=== PATIENT | male | born 1960 | race Caucasian/White ===

== ENCOUNTER → 2017-12-15 21:09 | Outpatient (CLI) | payer BC, SELFPAY ==
[2017-12-15 21:35] LABS: Absolute Lymphocyte Count 0.99 X10^3/ul (0.83-4.51); Basophil# 0.01 X10^3/uL; Basophil% 0.1 % (0-1); Eosinophil# 0.13 X10^3/uL; Eosinophils% 1.9 % (0-5); Hematocrit 35.9 % (40-54); Hemoglobin 11.1 g/dl (13.0-16.5); Lymphocyte # 0.99 X10^3/ul (4.0); Lymphocyte % 14.4 % (19-41); Mean Corp Hgb Conc 30.9 g/gl (32-36); Mean Corpuscular Hgb 29.6 pg (27.0-32.0); Mean Corpuscular Volume 95.7 fL (80-94); Mean Platelet Vol. 10.4 fl (6.2-12.0); Monocyte# 0.75 X10^3/uL; Monocyte% 10.9 % (0-10); Neutrophil % 72.6 % (47-70); Platelet Count 231 K/mm3 (150-450); RBC Distribution Width SD 45.2 fl (35.1-43.9); Red Blood Count 3.75 M/mm3 (4.6-6.2); White Blood Count 6.9 K/mm3 (4.4-11.0)
[2017-12-15 21:37] LABS: POSITIVE COUNT NO; POSITIVE DIFFERENTIAL NO; POSITIVE MORPHOLOGY NO
[2017-12-15 21:46] LABS: AST(SGOT) 15 U/L (15-37); Alanine Aminotransfer ALT/SGPT 20 U/L (16-61); Albumin, Serum 3.2 g/dL (3.2-5.0); Alkaline Phosphatase 114 U/L (45-117); Anion Gap 9 (5-15); BUN 15 mg/dL (7-18); BUN/Creat Ratio 13.4 RATIO (10-20); Calcium,Total 8.7 mg/dL (8.5-10.1); Chloride 103 mmol/L (98-107); Cholesterol 172 mg/dL (200); Creatinine, Serum 1.12 mg/dL (0.70-1.30); EST Glomerular Filtration Rate 71 mL/min (>60); Est Glom Filt Rate - Afr Amer 86 mL/min (>60); Globulin 3.3 g/dL (2.2-4.2); Glucose 169 mg/dL (74-106); High Density Lipoprotein 43 mg/dL; PSA,Total - Annual Screen 1.18 ng/mL (0.00-4.00); Potassium 3.9 mmol/L (3.5-5.1); Protein, Total 6.5 g/dL (6.4-8.2); Sodium Level 142 mmol/L (136-145); Triglycerides 112 mg/dL; Very Low Density Lipoprotein 22 mg/dL (5-40)
== END ==
PROVIDERS: Visit Provider Nurse Practitioner
DX: Z00.00 Encounter for general adult medical examination without abnormal findings (principal)
CPT/HCPCS: 80053; 80061; 84153; 85025; G0103

== ENCOUNTER → 2018-01-26 21:14 | Outpatient (CLI) | payer BC, SELFPAY ==
[2018-01-26 21:25] LABS: Absolute Neutrophil Count 5.4 X10^3/uL (2.0-7.7); Basophil# 0.01 X10^3/uL; Basophil% 0.1 % (0-1); Eosinophil# 0.16 X10^3/uL; Eosinophils% 2.1 % (0-5); Hemoglobin 12.5 g/dl (13.0-16.5); Lymphocyte % 15.7 % (19-41); Mean Corp Hgb Conc 31.3 g/gl (32-36); Mean Corpuscular Hgb 28.9 pg (27.0-32.0); Mean Corpuscular Volume 92.4 fL (80-94); Mean Platelet Vol. 9.6 fl (6.2-12.0); Monocyte# 0.83 X10^3/uL; Monocyte% 10.9 % (0-10); Neutrophil # 5.43 X10^3/uL (2.7-7.7); Neutrophil % 71.1 % (47-70); Platelet Count 280 K/mm3 (150-450); RBC Distribution Width CV 13.6 % (11.6-14.6); RBC Distribution Width SD 45.9 fl (35.1-43.9); Red Blood Count 4.33 M/mm3 (4.6-6.2); White Blood Count 7.6 K/mm3 (4.4-11.0)
[2018-01-26 21:27] LABS: POSITIVE COUNT NO; POSITIVE DIFFERENTIAL NO; POSITIVE MORPHOLOGY NO
[2018-01-26 21:34] LABS: AST(SGOT) 10 U/L (15-37); Alanine Aminotransfer ALT/SGPT 19 U/L (16-61); Albumin, Serum 3.6 g/dL (3.2-5.0); Alkaline Phosphatase 100 U/L (45-117); Anion Gap 6 (5-15); BUN 21 mg/dL (7-18); BUN/Creat Ratio 25.5 RATIO (10-20); Chloride 101 mmol/L (98-107); Creatinine, Serum 0.82 mg/dL (0.70-1.30); EST Glomerular Filtration Rate 102 mL/min (>60); Est Glom Filt Rate - Afr Amer 123 mL/min (>60); Globulin 3.7 g/dL (2.2-4.2); Glucose 93 mg/dL (74-106); Potassium 4.4 mmol/L (3.5-5.1); Protein, Total 7.3 g/dL (6.4-8.2); Sodium Level 138 mmol/L (136-145)
== END ==
PROVIDERS: Referring Provider Nurse Practitioner; Visit Provider Nurse Practitioner
DX: R73.9 Hyperglycemia, unspecified (principal); D64.9 Anemia, unspecified
CPT/HCPCS: 80053; 85025

== ENCOUNTER → 2018-05-13 21:12 | Outpatient (CLI) | payer BC, SELFPAY ==
[2018-05-13 15:31] VITALS: BMI 30.1
[2018-05-13 21:33] LABS: Absolute Lymphocyte Count 1.18 X10^3/ul (0.83-4.51); Basophil# 0.01 X10^3/uL; Basophil% 0.2 % (0-1); Eosinophil# 0.07 X10^3/uL; Eosinophils% 1.1 % (0-5); Hematocrit 42.9 % (40-54); Hemoglobin 13.7 g/dl (13.0-16.5); Lymphocyte # 1.18 X10^3/ul (4.0); Lymphocyte % 19.3 % (19-41); Mean Corp Hgb Conc 31.9 g/gl (32-36); Mean Corpuscular Hgb 29.4 pg (27.0-32.0); Mean Corpuscular Volume 92.1 fL (80-94); Mean Platelet Vol. 10.7 fl (6.2-12.0); Monocyte# 0.83 X10^3/uL; Monocyte% 13.6 % (0-10); Neutrophil # 4.02 X10^3/uL (2.7-7.7); Neutrophil % 65.6 % (47-70); Platelet Count 218 K/mm3 (150-450); RBC Distribution Width CV 14.3 % (11.6-14.6); RBC Distribution Width SD 47.2 fl (35.1-43.9); Red Blood Count 4.66 M/mm3 (4.6-6.2); White Blood Count 6.1 K/mm3 (4.4-11.0)
[2018-05-13 21:34] LABS: POSITIVE COUNT NO; POSITIVE DIFFERENTIAL NO; POSITIVE MORPHOLOGY NO
--- OUTSIDE RECORDS SUMMARY | 2018-07-18 12:54 | XMS RPT_ITS ---
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 (mEq/L) Date Value 04/12/2018 4.8 04/05/2018 4.6 03/29/2018 4.6 CO2 (mEq/L) Date Value 04/12/2018 31 04/05/2018 30 03/29/2018 30 BUN (mg/dL) Date Value 04/12/2018 16 04/05/2018 16 03/29/2018 17 Creatinine (mg/dL) Date Value 04/12/2018 0.86 04/05/2018 0.84 03/29/2018 0.81 AST (U/L) Date Value 11/15/2017 20 12/13/2015 20 ALT (U/L) Date Value 11/15/2017 22 12/13/2015 23 Bilirubin, Total (mg/dL) Date Value 11/15/2017 0.4 12/13/2015 0.8 Alkaline Phosphatase (U/L) Date Value 11/15/2017 45 12/13/2015 53 WSR (mm/hr) Date Value 02/18/2018 27 Microbiology data: reviewed Imaging data: reviewed Gilberto Bergman MD Pager: Briana Olson RN, RN 05/11/2018 1:15 PM Signed Nursing Note Debridement signature captured with risks explained per provider Review of New Patient Folder with signature captured See provider note for wound description and measurements Dressing removed In the presence and direction of the provider wound care as written below: Right Sparrow: Superior: 0.3 X 0.2 x 0.1 cm Inferior: 0.3 x 0.3 x 0.1 cm All wounds flushed with normal saline. Pat dry. Wound culture taken. Flushed with normal saline. Pat dry. Silver gel moistened Mesalt applied to wound bed. 4x4 border gauze. HBOT consulted PLAN: Return to the wound center to see ID in 1 week EDUCATION: The patient/family was instructed how to wash the wound(s) with dial soap, rinsing with water, AND patting dry. Visual demonstration on how to apply the dressing. Signs AND symptoms of infection were reviewed: Increased redness, swelling, pain, green, yellow drainage, fever or chills all would need to be evaluated by a Physician. Patient received typed homegoing wound care instructions and has expressed intent to comply. Briana Olson RN, RN 05/11/2018 1:19 PM Addendum WOUND CARE INSTRUCTIONS- Adeel I Musil Wound location: Right lower leg 1. Wash your hands with soap and water before and after wound care. 2. Gather all supplies needed. 3. Wash wound with Dial soap and water. Pat dry. 4. Apply Silvergel moistened Mesalt to the wound base. 5. Cover with 4x4 border gauze 7. Change your dressing daily To give your wound the best chance to heal: - Eat three balanced meals daily focusing on the protein - Control swelling by elevating the extremity above your heart - exercise the extremity - Control your blood sugar. Keep blood sugar less than 200 - Complete your wound care instructions - Vitamin C 500 mg twice daily - Multiple Vitamin Daily - Drink a protein shake daily Report any of the following changes to the Wound Center at [phone] or go to the Emergency Department: ? Fever or chills ? Increased drainage ? Green or yellow drainage ? Foul odor ? Increased pain ? Hardness around the wound ? Redness, warmth or swelling of the surrounding tissue ? Color change to the wound Plan: Return to the Wound Center to see ID in 3 weeks CAT Scans AND MRI need to be scheduled through Central Scheduling. Call [phone].(If applicable) Dr. Bergman/rosibel Referring Provider: SELF [200] Allergies As of Date: 05/11/2018 (No Known Allergies) Date Reviewed: 05/11/2018 Reviewed by: Delonte Cabello) KAYLEY Ervin - Fully Assessed Reason for Visit: Wound Check [133] Cmt: right sparrow Primary Visit Diagnosis:Open wound [T14.8XXA] Other Visit Diagnosis:Osteomyelitis of right leg (HCC) [M86.9] Order(s):WOUND CULTURE AND GRAM STAIN [SQWCUL] Order #: [id number]. #:[id number] SED RATE WESTERGREN [SQWSR] Order #: [id number] FUTURE C-REACTIVE PROTEIN (CRP) [SQCRP] Order #: [id number] FUTURE Prescriptions as of 05/11/2018 Sig: DOXYCYCLINE HYCLATE 20 MG TAB* Take 20 mg by mouth twice meg* IRON-150 ORAL Take by mouth. ASCORBIC ACID (VITAMIN C) 500* Take 500 mg by mouth once meg* STOOL SOFTENER ORAL Take by mouth. ACETAMINOPHEN 325 MG TABLET Take 2 tablets by mouth every* ASPIRIN 81 MG TABLET,DELAYED * Take 81 mg by mouth once edson* Problem List As Of Date 05/11/2018 Noted Resolved Femur fracture, right (HCC) [S72.91XA] INVALID FOR* More... Nicotine use disorder, F17.2 [F17.200] INVALID FOR* Scalp laceration [S01.01XA] INVALID FOR* Wound infection after surgery, subsequent encou*INVALID FOR* More... 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 Wash your hands with soap and water before and after wound care. 2. Gather all supplies needed. 3. Wash wound with Dial soap and water. Pat dry. 4. Apply Silvergel moistened Mesalt to the wound base. 5. Cover with 4x4 border gauze 7. Change your dressing daily To give your wound the best chance to heal: - Eat three balanced meals daily focusing on the protein - Control swelling by elevating the extremity above your heart - exercise the extremity - Control your blood sugar. Keep blood sugar less than 200 - Complete your wound care instructions - Vitamin C 500 mg twice daily - Multiple Vitamin Daily - Drink a protein shake daily Report any of the following changes to the Wound Center at [phone] or go to the Emergency Department: ? Fever or chills ? Increased drainage ? Green or yellow drainage ? Foul odor ? Increased pain ? Hardness around the wound ? Redness, warmth or swelling of the surrounding tissue ? Color change to the wound Plan: Return to the Wound Center to see ID in 3 weeks CAT Scans AND MRI need to be scheduled through Central Scheduling. Call [phone].(If applicable) Dr. Bergman/pw Visit Notes: >> Briana (Rn) TATIANA Olson tigist May 11, 2018 1:03 PM Status: Signed Nursing Note Debridement signature captured with risks explained per provider Review of New Patient Folder with signature captured See provider note for wound description and measurements Dressing removed In the presence and direction of the provider wound care as written below: Right Sparrow: Superior: 0.3 X 0.2 x 0.1 cm Inferior: 0.3 x 0.3 x 0.1 cm All wounds flushed with normal saline. Pat dry. Wound culture taken. Flushed with normal saline. Pat dry. Silver gel moistened Mesalt applied to wound bed. 4x4 border gauze. HBOT consulted PLAN: Return to the wound center to see ID in 1 week EDUCATION: The patient/family was instructed how to wash the wound(s) with dial soap, rinsing with water, AND patting dry. Visual demonstration on how to apply the dressing. Signs AND symptoms of infection were reviewed: Increased redness, swelling, pain, green, yellow drainage, fever or chills all would need to be evaluated by a Physician. Patient received typed homegoing wound care instructions and has expressed intent to comply. Medications Discontinued During This Encounter ampicillin sodium/sulbactam Na (UNAS* 05/11/2018 Class: Historical Med Route: INTRAVENOUS (ONLY) Sig: Inject intravenously. Disc: Course of therapy completed Encounter Status:Closed by GILBERTO BERGMAN MD on 05/11/18 Observed: 05/05/2018 Status: F Source: [facility] 12:40 PM HEALTH SYSTEM REPOSITORY Test performed at [facility] Moderate Mixed skin alem. No further identification to follow. Plates will be held for 5 days. No organisms seen Few Polymorphonuclear leukocytes Rare Squamous epithelial cells Performed By: #### C_AER #### [facility] [address] [place] [address] PROGRESS Observed: 05/04/2018 Status: COMPLETED Source: [facility] 2:18 PM CLINIC OTHER CAMPUS REPOSITORY HNO ID: [id number] Author: Wiliam Brandon Service: (none) Author Type: Physician Type: Progress Notes Filed: 05/04/2018 2:20 PM Note Text: Chief complaint: Right leg pain. His present illness: The patient returns today follow-up regarding his tibia abscess from traction pin site. He stopped his antibiotics per the infectious disease service on April 18, 2018. Overall doing well. Drainage continues to decrease. No fevers or chills. For the patient's past medical history, past surgical history, medications, allergies, family history, social history, and review of systems please refer to medical history in chart. Physical exam: Patient is alert and oriented no acute distress. Answers all questions appropriately. As a normal affect. Ambulates that assistance. Examination of the right lower extremity shows wound on medial aspect to continue to granulate in. No surrounding cellulitis. No purulence. Assessment: 1 right tibia abscess area Plan: At this time he is anxious to return to work. He dates to return to work in approximately 2 weeks. I did provide him with a return to work slip. He will continue local wound care with Mesalt dressing changes. I'll see him back in 4 weeks. If there are any problems prior to her next appointment, he will contact the office. All questions were answered CNOV Observed: 05/04/2018 Status: COMPLETED Source: [facility] 2:15 PM CLINIC OTHER CAMPUS REPOSITORY Office Visit (AGPOB1) JUNIADEEL PUTNAM I ([id number]) 1960 M [facility] Date Time Provider Department 05/04/18 2:15 PM WILIAM BRANDON AGPOB1 During your visit today, we recorded the following information about you: Respiration Weight Height 14/minute 80.3 kg 1.753 m Moni Stewart Encap 05/04/2018 2:20 PM Signed REVIEW OF SYSTEMS: GENERAL: Well developed, well nourished. No acute distress PAIN: Negative for pain, history of chronic pain or current treatment for chronic pain conditions CARDIOVASCULAR: Negative for chest pain, leg swelling and palpations. MSK: Negative for joint pain, swelling, back pain, muscle pain. SKIN: Negative for lesions, rash, itching, metal sensitivity NEURO: Negative for seizure, trauma, numbness/tingling of extremities. ENDOCRINE: Negative for Diabetes Type 1 and Type 2 HEMATOLOGY: Negative for excessive bleeding, clots, bleeding disorders. Wiliam Brandon MD 05/04/2018 2:20 PM Signed Chief complaint: Right leg pain. His present illness: The patient returns today follow-up regarding his tibia abscess from traction pin site. He stopped his antibiotics per the infectious disease service on April 18, 2018. Overall doing well. Drainage continues to decrease. No fevers or chills. For the patient's past medical history, past surgical history, medications, allergies, family history, social history, and review of systems please refer to medical history in chart. Physical exam: Patient is alert and oriented no acute distress. Answers all questions appropriately. As a normal affect. Ambulates that assistance. Examination of the right lower extremity shows wound on medial aspect to continue to granulate in. No surrounding cellulitis. No purulence. Assessment: 1 right tibia abscess area Plan: At this time he is anxious to return to work. He dates to return to work in approximately 2 weeks. I did provide him with a return to work slip. He will continue local wound care with Mesalt dressing changes. I'll see him back in 4 weeks. If there are any problems prior to her next appointment, he will contact the office. All questions were answered Referring Provider: SELF [200] Allergies As of Date: 05/04/2018 (No Known Allergies) Date Reviewed: 05/04/2018 Reviewed by: Wiliam Brandon - Fully Assessed Reason for Visit: Follow Up [171] Cmt: Right leg Primary Visit Diagnosis:Serg's abscess of right tibia (HCC) [M86.8X6] Prescriptions as of 05/04/2018 Sig: UNASYN INTRAVEN. Inject intravenously. DOXYCYCLINE HYCLATE 20 MG TAB* Take 20 mg by mouth twice meg* IRON-150 ORAL Take by mouth. ASCORBIC ACID (VITAMIN C) 500* Take 500 mg by mouth once meg* STOOL SOFTENER ORAL Take by mouth. ACETAMINOPHEN 325 MG TABLET Take 2 tablets by mouth every* ASPIRIN 81 MG TABLET,DELAYED * Take 81 mg by mouth once edson* Problem List As Of Date 05/04/2018 Noted Resolved Femur fracture, right (HCC) [S72.91XA] INVALID FOR* More... Nicotine use disorder, F17.2 [F17.200] INVALID FOR* Scalp laceration [S01.01XA] INVALID FOR* Wound infection after surgery, subsequent encou*INVALID FOR* More... 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 Follow-up and Disposition History Recorded Letter Text Wiliam Brandon MD Orthopedics [facility]ly [facility] [address], [facility] [address] [address], [facility] [address] [address] [facility], [address], [facility] [address] [address], [facility] [address] [address], [place] [address] [phone] ([phone] [email or web address] . May 04, 2018 Adeel Muller is under my care for treatment of Right femur fracture and infection of right tibia. He has been unable to attend work. He was last examined by me on May 04, 2018 and does have my permission to return to work on May 20, 2018. Restrictions: None Sincerely, Wiliam Brandon M.D. Encounter Status:Closed by WILIAM BRANDON MD on 05/04/18 PROGRESS Observed: 05/04/2018 Status: COMPLETED Source: [facility] 2:12 PM CLINIC OTHER CAMPUS REPOSITORY HNO ID: [id number] Author: Moni (Tech) Zbigniew Stewart Service: (none) Author Type: Billing Department Supervisor Type: Progress Notes Filed: 05/04/2018 2:20 PM Note Text: REVIEW OF SYSTEMS: GENERAL: Well developed, well nourished. No acute distress PAIN: Negative for pain, history of chronic pain or current treatment for chronic pain conditions CARDIOVASCULAR: Negative for chest pain, leg swelling and palpations. MSK: Negative for joint pain, swelling, back pain, muscle pain. SKIN: Negative for lesions, rash, itching, metal sensitivity NEURO: Negative for seizure, trauma, numbness/tingling of extremities. ENDOCRINE: Negative for Diabetes Type 1 and Type 2 HEMATOLOGY: Negative for excessive bleeding, clots, bleeding disorders. MDRD EGFR Collected: 04/12/2018 Status: F Source: [facility] 3:07 PM HEALTH SYSTEM REPOSITORY TYPE CODE TESTS RESULT OUT OF RANGE REFERENCE UNITS LAB LGFRF(LOINC >60mL/min/1.73m ) 2 eGFR >60 Result Comment: If the patient is , multiply the result by 1.210. Performed By: #### LGFR #### [place] [address] HEMOGRAM/MANUAL DIFF Collected: 04/12/2018 Status: F Source: [place] 1:00 PM [facility] SYSTEM REPOSITORY TYPE CODE TESTS RESULT OUT OF REFERENCE UNITS RANGE LAB LWBC(LOINC 4.8-10.8 thou/cmm ) Low WBC 4.5 LAB LRBC(LOINC 4.60-6.20 mil/cmm ) Low RBC 4.41 LAB LHGB(LOINC 14.0-18.0 g/dL ) Low Hgb 13.0 LAB LHCT(LOINC 42.0-52.0 % ) Low Hct 41.0 LAB LMCV(LOINC 80.0-94.0 fl ) MCV 93.0 LAB LMCH(LOINC 27.0-31.0 pg ) MCH 29.5 LAB LMCHC(LOIN 32.0-36.0 % C) Low MCHC 31.7 LAB LRDW(LOINC 11.5-15.9 % ) RDW 15.5 LAB LPLT(LOINC 150-400 thou/cmm ) Platelet 202 LAB LMPV(LOINC 7.1-10.5 fl ) MPV High 10.6 LAB LDTYP(LOIN C) Diff Type Manual Diff LAB LSEGT(LOIN % C) Seg Neutrophil 72.0 LAB LLYMP(LOIN % C) Lymphocyte 14.0 LAB LMNO(LOINC % ) Monocyte 14.0 LAB MELINDA(LOINC % ) Eosinophil 0.0 LAB LBASO(LOIN % C) Basophil 0.0 LAB LSEGN(LOIN 3.00-5.67 thou/cmm C) Abs. Neut (ANC) 3.24 LAB LLYMN(LOIN 1.50-3.65 thou/cmm C) Low Abs. Lymph 0.63 LAB LMONN(LOIN 0.20-1.00 thou/cmm C) Abs. [place] 0.63 LAB LEOSN(LOIN 0.00-0.41 thou/cmm C) Abs. Eosin 0.00 LAB LBASN(LOIN 0.00-0.08 thou/cmm C) Abs. Baso 0.00 LAB LPLES(LOIN C) Platelet Estimate Normal LAB LRBCM(LOIN C) RBC Morphology Normal Performed By: #### LMCBD #### [place] [id number] BASIC PANEL Collected: 04/12/2018 Status: F Source: [facility] 1:00 HEALTH SYSTEM REPOSITORY TYPE CODE TESTS RESULT OUT OF REFERENCE UNITS RANGE LAB RECEPTIONIST CLERK(LOINC) 136-145 mEq/L Sodium Blood 138 LAB LK(LOINC) 3.5-5.1 mEq/L Potassium Blood 4.8 LAB LCL(LOINC) 98-107 mEq/L Chloride Blood 102 LAB LCO2(LOINC 21-32 mEq/L ) CO2 Blood 31 LAB LGLU(LOINC 70-99 mg/dL ) Glucose Blood 73 LAB LBUN(LOINC 7-25 mg/dL ) BUN Blood 16 LAB LCREA(LOIN 0.67-1.17 mg/dL C) Creatinine Blood 0.86 LAB LCA(LOINC) 8.5-10.1 mg/dL Calcium Blood 9.1 LAB LANGP(LOIN 8-20 C) Anion Gap 10 LAB LBNCR(LOIN 10-20 C) BUN/Creatinine 19 Ratio Performed By: #### LP8 #### [facility] [address] [place] [address] MDRD EGFR Collected: 04/05/2018 Status: F Source: [facility] 2:36 PM HEALTH SYSTEM REPOSITORY TYPE CODE TESTS RESULT OUT OF RANGE REFERENCE UNITS LAB LGFRF(LOINC >60mL/min/1.73m ) 2 eGFR >60 Result Comment: If the patient is , multiply the result by 1.210. Performed By: #### LGFR #### [facility] [address] [place] [address] HEMOGRAM/DIFF Collected: 04/05/2018 Status: P Source: [facility] 12:39 PM HEALTH SYSTEM REPOSITORY TYPE CODE TESTS RESULT OUT OF REFERENCE UNITS RANGE LAB LWBC(LOINC) 4.8-10.8 thou/cmm Low WBC 3.9 LAB LRBC(LOINC) 4.60-6.20 mil/cmm Low RBC 4.43 LAB LHGB(LOINC) 14.0-18.0 g/dL Low Hgb 12.8 LAB LHCT(LOINC) 42.0-52.0 % Low Hct 41.0 LAB LMCV(LOINC) 80.0-94.0 fl MCV 92.6 LAB LMCH(LOINC) 27.0-31.0 pg MCH 28.9 LAB LMCHC(LOINC 32.0-36.0 % ) Low MCHC 31.2 LAB LRDW(LOINC) 11.5-15.9 % RDW 15.6 LAB LPLT(LOINC) 150-400 thou/cmm Platelet 219 LAB LMPV(LOINC) 7.1-10.5 fl MPV 10.2 Performed By: #### LCBCD #### [facility] [address] [place], [place] [address] HEMOGRAM/MANUAL DIFF Collected: 04/05/2018 Status: F Source: [place] 12:39 PM [facility] REPOSITORY TYPE CODE TESTS RESULT OUT OF REFERENCE UNITS RANGE LAB LWBC(LOINC 4.8-10.8 thou/cmm ) Low WBC 3.9 LAB LRBC(LOINC 4.60-6.20 mil/cmm ) Low RBC 4.43 LAB LHGB(LOINC 14.0-18.0 g/dL ) Low Hgb 12.8 LAB LHCT(LOINC 42.0-52.0 % ) Low Hct 41.0 LAB LMCV(LOINC 80.0-94.0 fl ) MCV 92.6 LAB LMCH(LOINC 27.0-31.0 pg ) MCH 28.9 LAB LMCHC(LOIN 32.0-36.0 % C) Low MCHC 31.2 LAB LRDW(LOINC 11.5-15.9 % ) RDW 15.6 LAB LPLT(LOINC 150-400 thou/cmm ) Platelet 219 LAB LMPV(LOINC 7.1-10.5 fl ) MPV 10.2 LAB LDTYP(LOIN C) Diff Type Manual Diff LAB LSEGT(LOIN % C) Seg Neutrophil 59.0 LAB LLYMP(LOIN % C) Lymphocyte 24.0 LAB LMNO(LOINC % ) Monocyte 12.0 LAB MELINDA(LOINC % ) Eosinophil 5.0 LAB LBASO(LOIN % C) Basophil 0.0 LAB LSEGN(LOIN 3.00-5.67 thou/cmm C) Low Abs. Neut (ANC) 2.29 LAB LLYMN(LOIN 1.50-3.65 thou/cmm C) Low Abs. Lymph 0.94 LAB LMONN(LOIN 0.20-1.00 thou/cmm C) Abs. [place] 0.47 LAB LEOSN(LOIN 0.00-0.41 thou/cmm C) Abs. Eosin 0.20 LAB LBASN(LOIN 0.00-0.08 thou/cmm C) Abs. Baso 0.00 LAB LPLES(LOIN C) Platelet Estimate Normal LAB LRBCM(LOIN C) RBC Morphology Normal Performed By: #### LMCBD #### [place] [address] BASIC PANEL Collected: 04/05/2018 Status: F Source: [facility] 12:39 PM HEALTH SYSTEM REPOSITORY TYPE CODE TESTS RESULT OUT OF REFERENCE UNITS RANGE LAB RECEPTIONIST CLERK(LOINC) 136-145 mEq/L Sodium Blood 140 LAB LK(LOINC) 3.5-5.1 mEq/L Potassium Blood 4.6 LAB LCL(LOINC) 98-107 mEq/L Chloride Blood 103 LAB LCO2(LOINC 21-32 mEq/L ) CO2 Blood 30 LAB LGLU(LOINC 70-99 mg/dL ) Glucose Blood 84 LAB LBUN(LOINC 7-25 mg/dL ) BUN Blood 16 LAB LCREA(LOIN 0.67-1.17 mg/dL C) Creatinine Blood 0.84 LAB LCA(LOINC) 8.5-10.1 mg/dL Calcium Blood 8.9 LAB LANGP(LOIN 8-20 C) Anion Gap 12 LAB LBNCR(LOIN 10-20 C) BUN/Creatinine 19 Ratio Performed By: #### LP8 #### [facility] [address] [place] [address] PROGRESS Observed: 03/30/2018 Status: COMPLETED Source: [place] [facility] 1:58 PM CLINIC OTHER CAMPUS REPOSITORY HNO ID: [id number] Author: Wiliam Brandon Service: (none) Author Type: Physician Type: Progress Notes Filed: 03/30/2018 1:59 PM Note Text: Subjective: The patient returns today regarding his right tibial osteomyelitis. His surgical debridement in December 2017. He is on IV antibiotics. He's taking these every 6 hours. Decreased drainage. No fevers or chills. He states he is walking and feeling better. Objective: Examination right lower extremity shows it to be neurovascularly intact. Decreased swelling. Mild serous drainage. Improved from last visit. Assessment: #1 right tibia osteomyelitis. Plan: At this time he scheduled to continue IV and objects through April 18. I will see him back in 4 weeks. He'll continue with local dressing changes. We did discuss the potential need for future intervention if his infection recurs after antibiotics are stopped. There are any problems prior to her next appointment, he will contact the office. All questions were answered. CNOV Observed: 03/30/2018 Status: COMPLETED Source: [facility] 1:45 PM CLINIC OTHER CAMPUS REPOSITORY Office Visit (AGPOB1) RENZOADEEL Jeffery ([id number]) 1960 M [facility] Date Time Provider Department 03/30/18 1:45 PM WILIAM BRANDON AGPOB1 During your visit today, we recorded the following information about you: Wiliam Brandon MD 03/30/2018 1:59 PM Signed Subjective: The patient returns today regarding his right tibial osteomyelitis. His surgical debridement in December 2017. He is on IV antibiotics. He's taking these every 6 hours. Decreased drainage. No fevers or chills. He states he is walking and feeling better. Objective: Examination right lower extremity shows it to be neurovascularly intact. Decreased swelling. Mild serous drainage. Improved from last visit. Assessment: #1 right tibia osteomyelitis. Plan: At this time he scheduled to continue IV and objects through April 18. I will see him back in 4 weeks. He'll continue with local dressing changes. We did discuss the potential need for future intervention if his infection recurs after antibiotics are stopped. There are any problems prior to her next appointment, he will contact the office. All questions were answered. Referring Provider: SELF [200] Allergies As of Date: 03/30/2018 (No Known Allergies) Date Reviewed: 03/30/2018 Reviewed by: Wiliam Brandon - Fully Assessed Reason for Visit: Follow Up [171] Cmt: right tibia abscess from 12/2017 Primary Visit Diagnosis:Serg's abscess of right tibia (HCC) [M86.8X6] Prescriptions as of 03/30/2018 Sig: UNASYN INTRAVEN. Inject intravenously. DOXYCYCLINE HYCLATE 20 MG TAB* Take 20 mg by mouth twice meg* IRON-150 ORAL Take by mouth. ASCORBIC ACID (VITAMIN C) 500* Take 500 mg by mouth once meg* STOOL SOFTENER ORAL Take by mouth. ACETAMINOPHEN 325 MG TABLET Take 2 tablets by mouth every* ASPIRIN 81 MG TABLET,DELAYED * Take 81 mg by mouth once edson* Problem List As Of Date 03/30/2018 Noted Resolved Femur fracture, right (HCC) [S72.91XA] INVALID FOR* More... Nicotine use disorder, F17.2 [F17.200] INVALID FOR* Scalp laceration [S01.01XA] INVALID FOR* Wound infection after surgery, subsequent encou*INVALID FOR* More... Serg's abscess of right tibia (HCC) [M86.8X6] INVALID FOR* Disposition: Return in about 4 weeks (around 04/27/2018). Follow-up and Disposition History Recorded Encounter Status:Closed by WILIAM BRANDON MD on 03/30/18 MDRD EGFR Collected: 03/29/2018 Status: F Source: [facility] 2:24 PM HEALTH SYSTEM REPOSITORY TYPE CODE TESTS RESULT OUT OF RANGE REFERENCE UNITS LAB LGFRF(LOINC >60mL/min/1.73m ) 2 eGFR >60 Result Comment: If the patient is , multiply the result by 1.210. Performed By: #### LGFR #### [place] [address] BASIC PANEL Collected: 03/29/2018 Status: F Source: [facility] 1:03 PM HEALTH SYSTEM REPOSITORY TYPE CODE TESTS RESULT OUT OF REFERENCE UNITS RANGE LAB RECEPTIONIST CLERK(LOINC) 136-145 mEq/L Sodium Blood 137 LAB LK(LOINC) 3.5-5.1 mEq/L Potassium Blood 4.6 LAB LCL(LOINC) 98-107 mEq/L Chloride Blood 102 LAB LCO2(LOINC 21-32 mEq/L ) CO2 Blood 30 LAB LGLU(LOINC 70-99 mg/dL ) Glucose Blood 73 LAB LBUN(LOINC 7-25 mg/dL ) BUN Blood 17 LAB LCREA(LOIN 0.67-1.17 mg/dL C) Creatinine Blood 0.81 LAB LCA(LOINC) 8.5-10.1 mg/dL Calcium Blood 8.6 LAB LANGP(LOIN 8-20 C) Anion Gap 9 LAB LBNCR(LOIN 10-20 C) High BUN/Creatinine 21 Ratio Performed By: #### LP8 #### [facility] [address] [place] [id number] HEMOGRAM/MANUAL DIFF Collected: 03/29/2018 Status: F Source: [place] 1:03 PM [facility] REPOSITORY TYPE CODE TESTS RESULT OUT OF REFERENCE UNITS RANGE LAB LWBC(LOINC 4.8-10.8 thou/cmm ) WBC Low 4.7 LAB LRBC(LOINC 4.60-6.20 mil/cmm ) RBC Low 4.25 LAB LHGB(LOINC 14.0-18.0 g/dL ) Hgb Low 12.3 LAB LHCT(LOINC 42.0-52.0 % ) Hct Low 39.1 LAB LMCV(LOINC 80.0-94.0 fl ) MCV 92.0 LAB LMCH(LOINC 27.0-31.0 pg ) MCH 28.9 LAB LMCHC(LOIN 32.0-36.0 % C) MCHC Low 31.5 LAB LRDW(LOINC 11.5-15.9 % ) RDW 15.3 LAB LPLT(LOINC 150-400 thou/cmm ) Platelet 187 LAB LMPV(LOINC 7.1-10.5 fl ) MPV 10.4 LAB LDTYP(LOIN C) Diff Type Manual Diff LAB LSEGT(LOIN % C) Seg Neutrophil 64.0 LAB LLYMP(LOIN % C) Lymphocyte 16.0 LAB LMNO(LOINC % ) Monocyte 18.0 LAB MELINDA(LOINC % ) Eosinophil 2.0 LAB LBASO(LOIN % C) Basophil 0.0 LAB LSEGN(LOIN 3.00-5.67 thou/cmm C) Abs. Neut (ANC) 3.01 LAB LLYMN(LOIN 1.50-3.65 thou/cmm C) Abs. Lymph Low 0.75 LAB LMONN(LOIN 0.20-1.00 thou/cmm C) Abs. [place] 0.85 LAB LEOSN(LOIN 0.00-0.41 thou/cmm C) Abs. Eosin 0.09 LAB LBASN(LOIN 0.00-0.08 thou/cmm C) Abs. Baso 0.00 LAB LPLES(LOIN C) Platelet Estimate Normal LAB LANIS(LOIN C) Anisocytosis Few LAB LPOIK(LOIN C) Poikilocytosis Few Performed By: #### LMCBD #### [facility] [address] [place], [place] [address] MDRD EGFR Collected: 03/22/2018 Status: F Source: [facility] 4:14 PM [facility] REPOSITORY TYPE CODE TESTS RESULT OUT OF RANGE REFERENCE UNITS LAB LGFRF(LOINC >60mL/min/1.73m ) 2 eGFR >60 Result Comment: If the patient is , multiply the result by 1.210. Performed By: #### LGFR #### [facility] [address] [place] [id number] HEMOGRAM/MANUAL DIFF Collected: 03/22/2018 Status: F Source: [place] 2:34 PM [facility] REPOSITORY TYPE CODE TESTS RESULT OUT OF REFERENCE UNITS RANGE LAB LWBC(LOINC 4.8-10.8 thou/cmm ) WBC Low 3.5 LAB LRBC(LOINC 4.60-6.20 mil/cmm ) RBC Low 4.53 LAB LHGB(LOINC 14.0-18.0 g/dL ) Hgb Low 12.9 LAB LHCT(LOINC 42.0-52.0 % ) Hct Low 41.0 LAB LMCV(LOINC 80.0-94.0 fl ) MCV 90.5 LAB LMCH(LOINC 27.0-31.0 pg ) MCH 28.5 LAB LMCHC(LOIN 32.0-36.0 % C) MCHC Low 31.5 LAB LRDW(LOINC 11.5-15.9 % ) RDW 15.2 LAB LPLT(LOINC 150-400 thou/cmm ) Platelet 168 LAB LMPV(LOINC 7.1-10.5 fl ) MPV 10.5 LAB LDTYP(LOIN C) Diff Type Manual Diff LAB LSEGT(LOIN % C) Seg Neutrophil 63.0 LAB LLYMP(LOIN % C) Lymphocyte 21.0 LAB LMNO(LOINC % ) Monocyte 14.0 LAB MELINDA(LOINC % ) Eosinophil 2.0 LAB LBASO(LOIN % C) Basophil 0.0 LAB LSEGN(LOIN 3.00-5.67 thou/cmm C) Abs. Neut (ANC) Low 2.20 LAB LLYMN(LOIN 1.50-3.65 thou/cmm C) Abs. Lymph Low 0.74 LAB LMONN(LOIN 0.20-1.00 thou/cmm C) Abs. [place] 0.49 LAB LEOSN(LOIN 0.00-0.41 thou/cmm C) Abs. Eosin 0.07 LAB LBASN(LOIN 0.00-0.08 thou/cmm C) Abs. Baso 0.00 LAB LPLES(LOIN C) Platelet Estimate Normal LAB LANIS(LOIN C) Anisocytosis Slight LAB LPOLY(LOIN C) Polychromasia Few LAB LPOIK(LOIN C) Poikilocytosis Few LAB LELIP(LOIN C) Elliptocytosis Few Performed By: #### LMCBD #### [place] [address] BASIC PANEL Collected: 03/22/2018 Status: F Source: [facility] 2:34 PM [facility] REPOSITORY TYPE CODE TESTS RESULT OUT OF REFERENCE UNITS RANGE LAB RECEPTIONIST CLERK(LOINC) 136-145 mEq/L Sodium Blood 136 LAB LK(LOINC) 3.5-5.1 mEq/L Potassium Blood 4.6 LAB LCL(LOINC) 98-107 mEq/L Chloride Blood 102 LAB LCO2(LOINC 21-32 mEq/L ) CO2 Blood 29 LAB LGLU(LOINC 70-99 mg/dL ) Glucose Blood 90 LAB LBUN(LOINC 7-25 mg/dL ) BUN Blood 12 LAB LCREA(LOIN 0.67-1.17 mg/dL C) Creatinine Blood 0.90 LAB LCA(LOINC) 8.5-10.1 mg/dL Calcium Blood 9.1 LAB LANGP(LOIN 8-20 C) Anion Gap 9 LAB LBNCR(LOIN 10-20 C) BUN/Creatinine 13 Ratio Performed By: #### LP8 #### [place] [address] MDRD EGFR Collected: 03/16/2018 Status: F Source: [facility] 2:49 PM [facility] SYSTEM REPOSITORY TYPE CODE TESTS RESULT OUT OF RANGE REFERENCE UNITS LAB LGFRF(LOINC >60mL/min/1.73m ) 2 eGFR >60 Result Comment: If the patient is , multiply the result by 1.210. Performed By: #### LGFR #### [facility] [address] [place], [place] [address] HEMOGRAM/DIFF Collected: 03/16/2018 Status: P Source: [facility] 12:20 PM [facility] SYSTEM REPOSITORY TYPE CODE TESTS RESULT OUT OF REFERENCE UNITS RANGE LAB LWBC(LOINC) 4.8-10.8 thou/cmm Low WBC 4.2 LAB LRBC(LOINC) 4.60-6.20 mil/cmm Low RBC 4.42 LAB LHGB(LOINC) 14.0-18.0 g/dL Low Hgb 12.6 LAB LHCT(LOINC) 42.0-52.0 % Low Hct 40.5 LAB LMCV(LOINC) 80.0-94.0 fl MCV 91.6 LAB LMCH(LOINC) 27.0-31.0 pg MCH 28.5 LAB LMCHC(LOINC 32.0-36.0 % ) Low MCHC 31.1 LAB LRDW(LOINC) 11.5-15.9 % RDW 15.2 LAB LPLT(LOINC) 150-400 thou/cmm Platelet 177 LAB LMPV(LOINC) 7.1-10.5 fl High MPV 10.8 Performed By: #### LCBCD #### [facility] [address] [place] [id number] HEMOGRAM/MANUAL DIFF Collected: 03/16/2018 Status: F Source: [place] 12:20 [facility] REPOSITORY TYPE CODE TESTS RESULT OUT OF REFERENCE UNITS RANGE LAB LWBC(LOINC 4.8-10.8 thou/cmm ) WBC Low 4.2 LAB LRBC(LOINC 4.60-6.20 mil/cmm ) RBC Low 4.42 LAB LHGB(LOINC 14.0-18.0 g/dL ) Hgb Low 12.6 LAB LHCT(LOINC 42.0-52.0 % ) Hct Low 40.5 LAB LMCV(LOINC 80.0-94.0 fl ) MCV 91.6 LAB LMCH(LOINC 27.0-31.0 pg ) MCH 28.5 LAB LMCHC(LOIN 32.0-36.0 % C) MCHC Low 31.1 LAB LRDW(LOINC 11.5-15.9 % ) RDW 15.2 LAB LPLT(LOINC 150-400 thou/cmm ) Platelet 177 LAB LMPV(LOINC 7.1-10.5 fl ) MPV High 10.8 LAB LDTYP(LOIN C) Diff Type Manual Diff LAB LSEGT(LOIN % C) Seg Neutrophil 69.0 LAB LLYMP(LOIN % C) Lymphocyte 15.0 LAB LMNO(LOINC % ) Monocyte 15.0 LAB MELINDA(LOINC % ) Eosinophil 1.0 LAB LBASO(LOIN % C) Basophil 0.0 LAB LSEGN(LOIN 3.00-5.67 thou/cmm C) Abs. Neut (ANC) Low 2.90 LAB LLYMN(LOIN 1.50-3.65 thou/cmm C) Abs. Lymph Low 0.63 LAB LMONN(LOIN 0.20-1.00 thou/cmm C) Abs. [place] 0.63 LAB LEOSN(LOIN 0.00-0.41 thou/cmm C) Abs. Eosin 0.04 LAB LBASN(LOIN 0.00-0.08 thou/cmm C) Abs. Baso 0.00 LAB LPLES(LOIN C) Platelet Estimate Normal LAB LANIS(LOIN C) Anisocytosis Few LAB LELIP(LOIN C) Elliptocytosis Few Performed By: #### LMCBD #### [place] [address] BASIC PANEL Collected: 03/16/2018 Status: F Source: [facility] 12:20 PM [facility] SYSTEM REPOSITORY TYPE CODE TESTS RESULT OUT OF REFERENCE UNITS RANGE LAB RECEPTIONIST CLERK(LOINC) 136-145 mEq/L Sodium Blood 137 LAB LK(LOINC) 3.5-5.1 mEq/L Potassium Blood 4.7 LAB LCL(LOINC) 98-107 mEq/L Chloride Blood 104 LAB LCO2(LOINC 21-32 mEq/L ) CO2 Blood 29 LAB LGLU(LOINC 70-99 mg/dL ) Glucose Blood 92 LAB LBUN(LOINC 7-25 mg/dL ) BUN Blood 16 LAB LCREA(LOIN 0.67-1.17 mg/dL C) Creatinine Blood 0.92 LAB LCA(LOINC) 8.5-10.1 mg/dL Calcium Blood 8.9 LAB LANGP(LOIN 8-20 C) Anion Gap 9 LAB LBNCR(LOIN 10-20 C) BUN/Creatinine 17 Ratio Performed By: #### LP8 #### [facility] [address] [place], [place] [address] MDRD EGFR Collected: 03/08/2018 Status: F Source: [facility] 5:45 PM [facility] REPOSITORY TYPE CODE TESTS RESULT OUT OF RANGE REFERENCE UNITS LAB LGFRF(LOINC >60mL/min/1.73m ) 2 eGFR >60 Result Comment: If the patient is , multiply the result by 1.210. Performed By: #### LGFR #### [facility] [address] [place], [place] [address] HEMOGRAM/MANUAL DIFF Collected: 03/08/2018 Status: F Source: [place] 2:58 PM [facility] REPOSITORY TYPE CODE TESTS RESULT OUT OF REFERENCE UNITS RANGE LAB LWBC(LOINC 4.8-10.8 thou/cmm ) WBC 5.1 LAB LRBC(LOINC 4.60-6.20 mil/cmm ) RBC Low 4.31 LAB LHGB(LOINC 14.0-18.0 g/dL ) Hgb Low 12.2 LAB LHCT(LOINC 42.0-52.0 % ) Hct Low 39.6 LAB LMCV(LOINC 80.0-94.0 fl ) MCV 91.9 LAB LMCH(LOINC 27.0-31.0 pg ) MCH 28.3 LAB LMCHC(LOIN 32.0-36.0 % C) MCHC Low 30.8 LAB LRDW(LOINC 11.5-15.9 % ) RDW 15.0 LAB LPLT(LOINC 150-400 thou/cmm ) Platelet 214 LAB LMPV(LOINC 7.1-10.5 fl ) MPV High 10.8 LAB LDTYP(LOIN C) Diff Type Manual Diff LAB LSEGT(LOIN % C) Seg Neutrophil 69.0 LAB LLYMP(LOIN % C) Lymphocyte 15.0 LAB LMNO(LOINC % ) Monocyte 12.0 LAB MELINDA(LOINC % ) Eosinophil 3.0 LAB LBASO(LOIN % C) Basophil 1.0 LAB LSEGN(LOIN 3.00-5.67 thou/cmm C) Abs. Neut (ANC) 3.52 LAB LLYMN(LOIN 1.50-3.65 thou/cmm C) Abs. Lymph Low 0.77 LAB LMONN(LOIN 0.20-1.00 thou/cmm C) Abs. [place] 0.61 LAB LEOSN(LOIN 0.00-0.41 thou/cmm C) Abs. Eosin 0.15 LAB LBASN(LOIN 0.00-0.08 thou/cmm C) Abs. Baso 0.05 LAB LPLES(LOIN C) Platelet Estimate Normal LAB LANIS(LOIN C) Anisocytosis Few LAB LELIP(LOIN C) Elliptocytosis Few Performed By: #### LMCBD #### [place] [address] BASIC PANEL Collected: 03/08/2018 Status: F Source: [facility] 2:58 PM HEALTH SYSTEM REPOSITORY TYPE CODE TESTS RESULT OUT OF REFERENCE UNITS RANGE LAB RECEPTIONIST CLERK(LOINC) 136-145 mEq/L Low Sodium Blood 134 LAB LK(LOINC) 3.5-5.1 mEq/L Potassium Blood 4.5 LAB LCL(LOINC) 98-107 mEq/L Chloride Blood 103 LAB LCO2(LOINC 21-32 mEq/L ) CO2 Blood 28 LAB LGLU(LOINC 70-99 mg/dL ) Glucose Blood 92 LAB LBUN(LOINC 7-25 mg/dL ) BUN Blood 17 LAB LCREA(LOIN 0.67-1.17 mg/dL C) Creatinine Blood 0.81 LAB LCA(LOINC) 8.5-10.1 mg/dL Calcium Blood 9.3 LAB LANGP(LOIN 8-20 C) Anion Gap 8 LAB LBNCR(LOIN 10-20 C) High BUN/Creatinine 21 Ratio Performed By: #### LP8 #### [place] [id number] PROGRESS Observed: 03/02/2018 Status: COMPLETED Source: [place] 1:54 PM [facility] REPOSITORY HNO ID: [id number] Author: Wiliam Brandon Service: (none) Author Type: Physician Type: Progress Notes Filed: 03/02/2018 1:55 PM Note Text: Subjective: Adeel returns today for us infected right tibial traction pin site. Recently started on IV antibiotics. Overall he states he is feeling better. Objective: Examination the right lower extremity shows decreased drainage swelling. Minimal surrounding erythema. Assessment: #1 right tibial osteomyelitis. Plan: Continue his IV antibiotics and local dressing changes. I'll see him back in 4 weeks. Any problems present, he'll contact the office. All questions were answered. CNOV Observed: 03/02/2018 Status: COMPLETED Source: [place] 1:45 PM [facility] REPOSITORY Office Visit (AGPOB1) ADEEL MULLER I ([id number]) 1960 M [facility] Date Time Provider Department 03/02/18 1:45 PM WILIAM BRANDON [id number] During your visit today, we recorded the following information about you: Wiliam Brandon MD 03/02/2018 1:55 PM Signed Subjective: Adeel returns today for us infected right tibial traction pin site. Recently started on IV antibiotics. Overall he states he is feeling better. Objective: Examination the right lower extremity shows decreased drainage swelling. Minimal surrounding erythema. Assessment: #1 right tibial osteomyelitis. Plan: Continue his IV antibiotics and local dressing changes. I'll see him back in 4 weeks. Any problems present, he'll contact the office. All questions were answered. Referring Provider: WILIAM BRANDON [[id number]] Allergies As of Date: 03/02/2018 (No Known Allergies) Date Reviewed: 03/02/2018 Reviewed by: Wiliam Brandon - Fully Assessed Reason for Visit: Follow Up [171] Cmt: right sparrow infection; IV Unasyn QID via PICC line. 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 Inject intravenously. DOXYCYCLINE HYCLATE 20 MG TAB* Take 20 mg by mouth twice meg* IRON-150 ORAL Take by mouth. ASCORBIC ACID (VITAMIN C) 500* Take 500 mg by mouth once meg* STOOL SOFTENER ORAL Take by mouth. ACETAMINOPHEN 325 MG TABLET Take 2 tablets by mouth every* ASPIRIN 81 MG TABLET,DELAYED * Take 81 mg by mouth once edson* Problem List As Of Date 03/02/2018 Noted Resolved Femur fracture, right (HCC) [S72.91XA] INVALID FOR* More... Nicotine use disorder, F17.2 [F17.200] INVALID FOR* Scalp laceration [S01.01XA] INVALID FOR* Wound infection after surgery, subsequent encou*INVALID FOR* More... 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 Follow-up and Disposition History Recorded Encounter Status:Closed by WILIAM BRANDON MD on 03/02/18 MDRD EGFR Collected: 03/01/2018 Status: F Source: [facility] 1:18 PM [facility]ALTH SYSTEM REPOSITORY TYPE CODE TESTS RESULT OUT OF RANGE REFERENCE UNITS LAB LGFRF(LOINC >60mL/min/1.73m ) 2 eGFR >60 Result Comment: If the patient is , multiply the result by 1.210. Performed By: #### LGFR #### [facility] [address] [place] [address] HEMOGRAM/DIFF Collected: 03/01/2018 Status: F Source: [facility] 11:40 AM HEALTH SYSTEM REPOSITORY TYPE CODE TESTS RESULT OUT OF REFERENCE UNITS RANGE LAB LWBC(LOINC 4.8-10.8 thou/cmm ) WBC 5.0 LAB LRBC(LOINC 4.60-6.20 mil/cmm ) Low RBC 4.19 LAB LHGB(LOINC 14.0-18.0 g/dL ) Low Hgb 12.0 LAB LHCT(LOINC 42.0-52.0 % ) Low Hct 38.6 LAB LMCV(LOINC 80.0-94.0 fl ) MCV 92.1 LAB LMCH(LOINC 27.0-31.0 pg ) MCH 28.6 LAB LMCHC(LOIN 32.0-36.0 % C) Low MCHC 31.1 LAB LRDW(LOINC 11.5-15.9 % ) RDW 14.7 LAB LPLT(LOINC 150-400 thou/cmm ) Platelet 218 LAB LMPV(LOINC 7.1-10.5 fl ) MPV 10.4 LAB LSEGT(LOIN % C) Seg Neutrophil 62.8 LAB LLYMP(LOIN % C) Lymphocyte 19.7 LAB LMNO(LOINC % ) Monocyte 13.7 LAB MELINDA(LOINC % ) Eosinophil 3.4 LAB LBASO(LOIN % C) Basophil 0.4 LAB LSEGN(LOIN 3.00-5.67 thou/cmm C) Abs. Neut (ANC) 3.13 LAB LLYMN(LOIN 1.50-3.65 thou/cmm C) Low Abs. Lymph 0.99 LAB LMONN(LOIN 0.20-1.00 thou/cmm C) Abs. [place] 0.69 LAB LEOSN(LOIN 0.00-0.41 thou/cmm C) Abs. Eosin 0.17 LAB LBASN(LOIN 0.00-0.08 thou/cmm C) Abs. Baso 0.02 Performed By: #### LCBCD #### [place] [address] BASIC PANEL Collected: 03/01/2018 Status: F Source: [facility] 11:40 AM HEALTH SYSTEM REPOSITORY TYPE CODE TESTS RESULT OUT OF REFERENCE UNITS RANGE LAB RECEPTIONIST CLERK(LOINC) 136-145 mEq/L Sodium Blood 140 LAB LK(LOINC) 3.5-5.1 mEq/L Potassium Blood 4.4 LAB LCL(LOINC) 98-107 mEq/L Chloride Blood 107 LAB LCO2(LOINC 21-32 mEq/L ) CO2 Blood 30 LAB LGLU(LOINC 70-99 mg/dL ) Glucose Blood 93 LAB LBUN(LOINC 7-25 mg/dL ) BUN Blood 15 LAB LCREA(LOIN 0.67-1.17 mg/dL C) Creatinine Blood 0.80 LAB LCA(LOINC) 8.5-10.1 mg/dL Calcium Blood 8.7 LAB LANGP(LOIN 8-20 C) Anion Gap 8 LAB LBNCR(LOIN 10-20 C) BUN/Creatinine 19 Ratio Performed By: #### LP8 #### [facility] [address] [place] [address] MRI LOWER LEG WO/W Observed: 02/22/2018 Status: F Source: [place] IVCON RT 12:10 PM CLINIC OTHER CAMPUS REPOSITORY * * *Final Report* * * DATE OF EXAM: Feb 22 2018 12:10PM [facility] 0227 - MRI LOWER LEG WO/W IVCON RT / PROCEDURE REASON: OSTEOMYELITIS OF RIGHT LOWER EXTREMITY M86.9 * * * * Physician Interpretation * * * * EXAMINATION: MRI LOWER LEG WO/W IVCON RT CLINICAL HISTORY: Right lower leg infection with tibial osteomyelitis status post debridement and irrigation on 01/11/2018. Technique: MRI LOWER LEG WO/W IVCON RT. Contrast Media: Central IV administration of 16 ml of Dotarem Comparison: 12/16/2017 x-ray tib-fib (available in [facility] only) RESULT: There is a soft tissue defect along the anterior proximal lower leg with a tract extending to the anterior tibia. There is a separate obliquely oriented linear tract also extending through the soft tissue into the anterior tibia and is likely postsurgical. There are multifocal areas of edema signal within the tibia extending from the metaphysis to the imaged mid tibia which are associated loss of T1 signal and enhancement. The findings are consistent with an abscess which is centered in the anterolateral third to two thirds of the tibia and extends approximately 3.6 cm in cc dimension. The Serg's abscess is surrounded by a small enhancing fluid collection which follows the bone contour and extends into the periosteum. There is marked adjacent muscle edema. Visualized neurovascular structures appear intact. IMPRESSION: Multifocal tibial osteomyelitis associated with a Serg's abscess and a small soft tissue/periosteal abscess. Panel Laminator: HARDIK Transcribe Date/Time: Feb 22 2018 2:31P Dictated by : JULITA BENDER MD This examination was interpreted and the report reviewed and electronically signed by: JULITA BENDER MD on Feb 22 2018 3:30PM EST [id number] PROCEDURE Observed: 02/22/2018 Status: COMPLETED Source: [place] 9:36 AM CLIN[facility] OTHER CAMPUS REPOSITORY O ID: [id number] Author: Kristin (Rn) TATIANA Freeman Service: PICC Team Author Type: Registered Nurse Type: Procedures Filed: 02/22/2018 9:37 AM Note Text: DATE OF PROCEDURE: February 22, 2018 TIME OF PROCEDURE: 832 ORDERING PHYSICIAN: Madalyn INFORMED CONSENT: Obtained per hospital policy. INDICATION FOR LINE PLACEMENT: IV therapy over six days CONDITION OF LINE PLACEMENT: Sterile PRIMARY PROCEDURALIST: Kristin Freeman RN LIVING ADVISOR: Elvie Scanlon PRE-PROCEDURE REVIEW ALLERGIES No Known Allergies Known History of Venous Thrombosis: No Known History of Permanent Pacemaker or Automated Implanted Cardiac Device: No Previous Breast Surgery of Lymph Node Dissection: No History of Renal Disease with Arterio-Venous Fistula in Place or Planned: No Ultrasound Assessment Complete: Yes PROCEDURE NARRATIVE SAFE PRACTICE Hand Hygiene per Hospital Policy: Yes Skin Preparation Unit Dose Applicator Used: Chloraprep (CHG + alcohol), allowed to dry. Procedure Surface Cleansed with Antimicrobial Wipes: Yes Barriers Used by Proceduralist and all Assisting Personnel: Yes UNIVERSAL PROTOCOL / SAFETY CHECKLIST Procedure to be performed: PICC Sign in Communication: Completed Time Out: Team Confirms the Correct Patient, Correct Procedure, Correct Site and Site Marking, Correct Position (if applicable), Prep and Dry Time (if applicable). Time: 844 Affirmation of Time Out: YES Sign Out Discussion: Completed Elvie Scanlon RN CATHETER PLACEMENT Brand: Bard Lot: [id number] Number of Lumens: 1 Type of PICC: Power Injectable PICC Lumen Size: 4 Mongolian PLACEMENT TECHNIQUE Lidocaine: Yes. Strength: 1% Volume 2 cc Modified Seldinger Technique Used to Place Line via the Right Basilic Ultrasound Guidance: Yes Number of Attempts at Insertion: 1 Ensured control of guidewire during all aspects of the procedure: Yes Accounted for entire guidewire upon removal: Yes Internal Length: 42 cm External Length: 1 cm Trim Length: 42 cm Mid-Arm Circumference Above Insertion Site: 29.5 centimeters Post Insertion Pain Level Related to Procedure: 0 Action Taken to Address Pain: None needed Verified Placement: Blood return, Ultrasound and Tip location system or device indicates the tip is located in the SVC/CAJ. Line was Flushed with 20 cc normal saline Line Secured with: Securement device Sterile Dressing Applied and Dated: Yes Sterile Caps on all Ports Prior to Leaving Procedure Area: Yes SPECIMENS: None COMPLICATIONS: None Patient Education Materials: Given to patient [facility] Central Line Insertion checklist, attached to the Central Line-Associated Bloodstream Infection Prevention Policy, was utilized during this procedure. QUESTIONS or PROBLEMS: Call [phone] SIGNATURE: Elvie Scanlon RN PATIENT NAME: Adeel Muller DATE: February 22, 2018 TIME: 9:25 AM PAGER/CONTACT PHONE: NURSING PROG Observed: 02/22/2018 Status: COMPLETED Source: [place] 9:24 AM [facility] OTHER CAMPUS REPOSITORY HNO ID: [id number] Author: Elvie (Rn) TATIANA Scanlon Service: Radiology Author Type: Registered Nurse Type: Nursing Progress Note Filed: 02/22/2018 9:28 AM Note Text: PICC NURSE INSERTION NOTE DATE OF PROCEDURE: February 22, 2018 TIME OF PROCEDURE: 832 ORDERING PHYSICIAN: Madalyn INFORMED CONSENT: Obtained per hospital policy. INDICATION FOR LINE PLACEMENT: IV therapy over six days CONDITION OF LINE PLACEMENT: Sterile PRIMARY PROCEDURALIST: Kristin Freeman RN LIVING ADVISOR: Elvie Scanlon PRE-PROCEDURE REVIEW ALLERGIES No Known Allergies Known History of Venous Thrombosis: No Known History of Permanent Pacemaker or Automated Implanted Cardiac Device: No Previous Breast Surgery of Lymph Node Dissection: No History of Renal Disease with Arterio-Venous Fistula in Place or Planned: No Ultrasound Assessment Complete: Yes PROCEDURE NARRATIVE SAFE PRACTICE Hand Hygiene per Hospital Policy: Yes Skin Preparation Unit Dose Applicator Used: Chloraprep (CHG + alcohol), allowed to dry. Procedure Surface Cleansed with Antimicrobial Wipes: Yes Barriers Used by Proceduralist and all Assisting Personnel: Yes UNIVERSAL PROTOCOL / SAFETY CHECKLIST Procedure to be performed: PICC Sign in Communication: Completed Time Out: Team Confirms the Correct Patient, Correct Procedure, Correct Site and Site Marking, Correct Position (if applicable), Prep and Dry Time (if applicable). Time: 0845 Affirmation of Time Out: YES Sign Out Discussion: Completed Elvie Scanlon RN CATHETER PLACEMENT Brand: Bard Lot: [id number] Number of Lumens: 1 Type of PICC: Power Injectable PICC Lumen Size: 4 Mongolian PLACEMENT TECHNIQUE Lidocaine: Yes. Strength: 1% Volume 2 cc Modified Seldinger Technique Used to Place Line via the Right Basilic Ultrasound Guidance: Yes Number of Attempts at Insertion: 1 Ensured control of guidewire during all aspects of the procedure: Yes Accounted for entire guidewire upon removal: Yes Internal Length: 42 cm External Length: 1 cm Trim Length: 42 cm Mid-Arm Circumference Above Insertion Site: 29.5 centimeters Post Insertion Pain Level Related to Procedure: 0 Action Taken to Address Pain: None needed Verified Placement: Blood return, Ultrasound and Tip location system or device indicates the tip is located in the SVC/CAJ. Line was Flushed with 20 cc normal saline Line Secured with: Securement device Sterile Dressing Applied and Dated: Yes Sterile Caps on all Ports Prior to Leaving Procedure Area: Yes SPECIMENS: None COMPLICATIONS: None Patient Education Materials: Given to patient [facility] Central Line Insertion checklist, attached to the Central Line-Associated Bloodstream Infection Prevention Policy, was utilized during this procedure. QUESTIONS or PROBLEMS: Call [phone] SIGNATURE: Elvie Scanlon RN PATIENT NAME: Adeel Mluler DATE: February 22, 2018 TIME: 9:25 AM PAGER/CONTACT PHONE: NURSING PROG Observed: 02/22/2018 Status: COMPLETED Source: [place] 8:30 AM CLINIC OTHER CAMPUS REPOSITORY HNO ID: [id number] Author: Elvie (Rn) TATIANA Scanlon Service: Radiology Author Type: Registered Nurse Type: Nursing Progress Note Filed: 02/22/2018 9:20 AM Note Text: PATIENT EDUCATION TOPIC: PROCEDURE / SURGERY: Procedure/Surgery: PICC PATIENT NAME: Adeel Muller [facility] READINESS TO LEARN COGNITIVE ABILITY: Alert and oriented MOTIVATION TO LEARN: Eager FAMILY SUPPORT: Unable to assess - Family not present INSTRUCTION PROVIDED TO: Patient PATIENT LEARNS BEST BY: Individual Instruction Written Instruction - Hand-outs Verbal Instruction FACTORS AFFECTING LEARNING: None PHYSICAL LIMITATIONS AFFECTING LEARNING: None LEARNING RESPONSE DIAGNOSIS: ADULT: Osteomyelitis needs LTA PATIENT/FAMILY RESPONSE: Verbalizes understanding of: PRE-PROCEDURE INSTRUCTIONS-Correct action to take to follow pre-procedure instructions METHOD OF INSTRUCTION: Individual instruction Written instruction - handouts Verbal instruction FOLLOW-UP PLAN: Complete - No need for follow-up INSTRUCTIONAL AIDS USED: Picc Line Book SUPPLEMENTAL MATERIAL PROVIDED TO PATIENT: None REFERRAL (RECOMMENDATION): None Electronically Signed By: Elvie Scanlon RN HOSP Observed: 02/19/2018 Status: COMPLETED Source: [place] 12:00 AM CLINIC OTHER CAMPUS REPOSITORY Patient:Adeel Muller I MRN: <[id number]> Height:5' 9(1.753 m) Weight:177 lb (80.287 kg) Outpatient Medications as of 02/22/18: ciprofloxacin HCl (CIPRO) 500 mg tablet doxycycline 20 mg tablet iron bis-gly/FA/C/B12/Ca/succ (IRON-150 ORAL) ascorbic acid, vitamin C, (VITAMIN C) 500 mg tablet docusate sodium (STOOL SOFTENER ORAL) acetaminophen (TYLENOL) 325 mg tablet aspirin, enteric coated (ASPIRIN, ENTERIC COATED) 81 mg EC tablet Admission/Clinic Administered Medications as of 02/22/18: 0.9% NaCl 10 mL 0.9% NaCl 20 mL Problem List: Femur fracture, right (HCC) [S72.91XA] Nicotine use disorder, F17.2 [F17.200] Scalp laceration [S01.01XA] Wound infection after surgery, subsequent encounter [T81.4XXD] Serg's abscess of right tibia ([facility]) [M86.661] Allergies: No Known Allergies Date Verified:02/15/18 Lab Values Lab Value Units Date High Low POTA* 5.1 mmol/L 02/18/2018 5.1 3.7 PIPPA* 42.0 % 02/18/2018 51.0 39.0 Progress Notes ([facility]): Zbigniew Bustillo Tech 02/15/2018 2:19 PM Signed REVIEW OF SYSTEMS: GENERAL: Well developed, well nourished. No acute distress PAIN: Pain right leg CARDIOVASCULAR: Negative for chest pain, leg swelling and palpations. MSK: Negative for joint pain, swelling, back pain, muscle pain. SKIN: Negative for lesions, rash, itching, metal sensitivity NEURO: Trauma 11-15-2017 ENDOCRINE: Negative for Diabetes Type 1 and Type 2 HEMATOLOGY: Negative for excessive bleeding, clots, bleeding disorders. 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 He's currently on ciprofloxacin. Drainage continues to decrease. Denies any significant fevers or chills. Overall feeling better. Objective: Examination of right lower extremity shows expressible drainage. This is decreased from previous examinations. No surrounding erythema. Assessment: #1 right tibial cellulitis. Plan: At this time he will continue on his antibiotics. He seen infectious disease on . I'll see him back in 2 weeks. He'll continue local wound care. He will be weight-bear as tolerated. He is any problems prior to next, he will contact the office. All questions were answered. Progress Notes ([facility]): Stephanie Rick 02/09/2018 1:47 PM Addendum The patient called concerned that his appointment is being pushed back a week. He states his wound appears to be getting better, but it's still seeping. Patient will be out of his antibiotics today. He was not able to get in with [place] infectious disease until 02/18/18. Patient called requesting the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
== END ==
PROVIDERS: Referring Provider Nurse Practitioner; Visit Provider Nurse Practitioner
DX: D64.9 Anemia, unspecified (principal)
CPT/HCPCS: 85025

== ENCOUNTER → 2018-06-12 17:37 | Outpatient (CLI) | payer BC, SELFPAY ==
[2018-06-12 12:09] VITALS: BMI 30.1
[2018-06-12 18:01] LABS: Prealbumin 27.1 mg/dL (20.0-40.0)
[2018-06-12 18:03] LABS: Absolute Lymphocyte Count 0.76 X10^3/ul (0.83-4.51); Absolute Neutrophil Count 2.9 X10^3/uL (2.0-7.7); Basophil# 0.01 X10^3/uL; Basophil% 0.2 % (0-1); Eosinophil# 0.12 X10^3/uL; Eosinophils% 2.7 % (0-5); Hematocrit 41.6 % (40-54); Hemoglobin 13.3 g/dl (13.0-16.5); Lymphocyte # 0.76 X10^3/ul (4.0); Lymphocyte % 17.2 % (19-41); Mean Corpuscular Hgb 30.4 pg (27.0-32.0); Mean Platelet Vol. 10.8 fl (6.2-12.0); Monocyte# 0.66 X10^3/uL; Monocyte% 14.9 % (0-10); Neutrophil # 2.87 X10^3/uL (2.7-7.7); Platelet Count 196 K/mm3 (150-450); RBC Distribution Width CV 13.8 % (11.6-14.6); Red Blood Count 4.38 M/mm3 (4.6-6.2); White Blood Count 4.4 K/mm3 (4.4-11.0)
[2018-06-12 18:05] LABS: POSITIVE COUNT NO; POSITIVE DIFFERENTIAL NO; POSITIVE MORPHOLOGY NO
== END ==
PROVIDERS: Visit Provider Nurse Practitioner
DX: D64.9 Anemia, unspecified (principal)
CPT/HCPCS: 84134; 85025

== ENCOUNTER → 2019-01-29 20:24 | Outpatient (CLI) | payer BC, SELFPAY ==
[2019-01-29 10:48] VITALS: BMI 29.2
[2019-01-29 20:32] LABS: Absolute Lymphocyte Count 1.04 X10^3/uL (0.83-4.51); Absolute Neutrophil Count 3.5 X10^3/uL (2.0-7.7); Basophil# 0.02 X10^3/uL; Basophil% 0.4 % (0-1); Eosinophil# 0.12 X10^3/uL; Eosinophils% 2.3 % (0-5); Hematocrit 40.3 % (40-54); Hemoglobin 13.1 g/dL (13.0-16.5); Lymphocyte # 1.04 X10^3/ul (4.0); Lymphocyte % 19.8 % (19-41); Mean Corp Hgb Conc 32.5 g/dL (32-36); Mean Corpuscular Hgb 31.1 pg (27.0-32.0); Mean Corpuscular Volume 95.7 fL (80-94); Mean Platelet Vol. 10.6 fl (6.2-12.0); Monocyte% 11.4 % (0-10); NRBC Flagged by Analyzer 0 % (0-5); Neutrophil # 3.45 X10^3/uL (2.7-7.7); Neutrophil % 65.7 % (47-70); Platelet Count 188 K/mm3 (150-450); RBC Distribution Width CV 12.5 % (11.6-14.6); RBC Distribution Width SD 44.2 fl (35.1-43.9); Red Blood Count 4.21 M/mm3 (4.6-6.2); White Blood Count 5.3 K/mm3 (4.4-11.0)
[2019-01-29 20:42] LABS: ALB/GLOB Ratio 1.3 RATIO (0.9-2.4); AST(SGOT) 17 U/L (15-37); Alanine Aminotransfer ALT/SGPT 24 U/L (16-61); Albumin, Serum 3.8 g/dL (3.2-5.0); Alkaline Phosphatase 66 U/L (45-117); Anion Gap 4 (5-15); BUN 16 mg/dL (7-18); BUN/Creat Ratio 16.4 RATIO (10-20); Calcium,Total 8.6 mg/dL (8.5-10.1); Chloride 106 mmol/L (98-107); Cholesterol 178 mg/dL (200); Creatinine, Serum 0.98 mg/dL (0.70-1.30); EST Glomerular Filtration Rate 83 mL/min (>60); Est Glom Filt Rate - Afr Amer 101 mL/min (>60); Glucose 96 mg/dL (74-106); High Density Lipoprotein 52 mg/dL; Potassium 4.6 mmol/L (3.5-5.1); Protein, Total 6.8 g/dL (6.4-8.2); Sodium Level 139 mmol/L (136-145); Triglycerides 108 mg/dL; Very Low Density Lipoprotein 22 mg/dL (5-40)
== END ==
LOC: OLS.AHF 20:24 → LABSPEC 01-31 12:47
PROVIDERS: Visit Provider Nurse Practitioner
DX: D64.9 Anemia, unspecified (principal); E78.00 Pure hypercholesterolemia, unspecified
CPT/HCPCS: 80053; 80061; 85025

== ENCOUNTER → 2020-01-12 | Outpatient (CLI) | payer BC, SELFPAY ==
[2020-01-12 14:54] VITALS: BMI 29.0
[2020-01-12 22:15] LABS: Absolute Lymphocyte Count 0.87 X10^3/uL (0.83-4.51); Basophil# 0.02 X10^3/uL; Basophil% 0.4 % (0-1); Eosinophil# 0.11 X10^3/uL; Hematocrit 43.3 % (40-54); Hemoglobin 13.8 g/dL (13.0-16.5); Lymphocyte # 0.87 X10^3/ul (4.0); Lymphocyte % 15.5 % (19-41); Mean Corp Hgb Conc 31.9 g/dL (32-36); Mean Corpuscular Hgb 31.2 pg (27.0-32.0); Mean Platelet Vol. 10.7 fl (6.2-12.0); Monocyte# 0.59 X10^3/uL; Monocyte% 10.5 % (0-10); NRBC Flagged by Analyzer 0 % (0-5); Neutrophil # 4.01 X10^3/uL (2.7-7.7); Neutrophil % 71.2 % (47-70); Platelet Count 210 K/mm3 (150-450); RBC Distribution Width CV 12.5 % (11.6-14.6); RBC Distribution Width SD 45.1 fl (35.1-43.9); Red Blood Count 4.42 M/mm3 (4.6-6.2); White Blood Count 5.6 K/mm3 (4.4-11.0)
[2020-01-12 22:16] LABS: ALB/GLOB Ratio 1.2 RATIO (0.9-2.4); AST(SGOT) 21 U/L (15-37); Alanine Aminotransfer ALT/SGPT 30 U/L (16-61); Albumin, Serum 3.8 g/dL (3.2-5.0); Alkaline Phosphatase 65 U/L (45-117); Anion Gap 5 (5-15); BUN 20 mg/dL (7-18); BUN/Creat Ratio 11.7 RATIO (10-20); Chloride 106 mmol/L (98-107); Cholesterol 184 mg/dL (200); Creatinine, Serum 1.71 mg/dL (0.70-1.30); EST Glomerular Filtration Rate 44 mL/min (>60); Est Glom Filt Rate - Afr Amer 53 mL/min (>60); Globulin 3.2 g/dL (2.2-4.2); Glucose 105 mg/dL (74-106); High Density Lipoprotein 55 mg/dL; PSA,Total - Annual Screen 1.38 ng/mL (0.00-4.00); Potassium 4.5 mmol/L (3.5-5.1); Sodium Level 141 mmol/L (136-145); Triglycerides 139 mg/dL; Very Low Density Lipoprotein 28 mg/dL (5-40)
== END | disposition home or self-care (01) ==
PROVIDERS: Referring Provider Nurse Practitioner; Visit Provider Nurse Practitioner
DX: Z00.00 Encounter for general adult medical examination without abnormal findings (principal)
CPT/HCPCS: 80053; 80061; 84153; 85025; G0103

== ENCOUNTER → 2020-04-18 | Outpatient (CLI) | payer BC, SELFPAY ==
[2020-04-18 16:41] VITALS: BMI 29.0
[2020-04-18 22:32] LABS: ALB/GLOB Ratio 1.3 RATIO (0.9-2.4); AST(SGOT) 19 U/L (15-37); Alanine Aminotransfer ALT/SGPT 29 U/L (16-61); Albumin, Serum 3.9 g/dL (3.2-5.0); Alkaline Phosphatase 59 U/L (45-117); Anion Gap 5 (5-15); BUN 21 mg/dL (7-18); BUN/Creat Ratio 18.1 RATIO (10-20); Calcium,Total 8.9 mg/dL (8.5-10.1); Chloride 104 mmol/L (98-107); Creatinine, Serum 1.16 mg/dL (0.70-1.30); EST Glomerular Filtration Rate 68 mL/min (>60); Est Glom Filt Rate - Afr Amer 82 mL/min (>60); Globulin 3.1 g/dL (2.2-4.2); Glucose 86 mg/dL (74-106); Potassium 4.8 mmol/L (3.5-5.1); Sodium Level 138 mmol/L (136-145)
== END | disposition home or self-care (01) ==
PROVIDERS: Referring Provider Nurse Practitioner; Visit Provider Nurse Practitioner
DX: N28.9 Disorder of kidney and ureter, unspecified (principal)
CPT/HCPCS: 80053

== ENCOUNTER → 2021-03-25 | Outpatient (CLI) | payer BC, SELFPAY ==
[2021-03-25 22:21] LABS: Absolute Lymphocyte Count 0.76 X10^3/uL (0.83-4.51); Absolute Neutrophil Count 6.7 X10^3/uL (2.0-7.7); Basophil# 0.03 X10^3/uL; Basophil% 0.4 % (0-1); Eosinophil# 0.04 X10^3/uL; Eosinophils% 0.5 % (0-5); Hematocrit 44.7 % (40-54); Hemoglobin 14.2 g/dL (13.0-16.5); Lymphocyte # 0.76 X10^3/ul (0.83-4.51); Lymphocyte % 9.5 % (19-41); Mean Corp Hgb Conc 31.8 g/dL (32-36); Mean Corpuscular Volume 97.6 fL (80-94); Mean Platelet Vol. 10.7 fl (6.2-12.0); Monocyte# 0.43 X10^3/uL; Monocyte% 5.3 % (0-10); NRBC Flagged by Analyzer 0 % (0-5); Neutrophil # 6.74 X10^3/uL (2.7-7.7); Neutrophil % 83.8 % (47-70); Platelet Count 193 K/mm3 (150-450); RBC Distribution Width CV 12.6 % (11.6-14.6); RBC Distribution Width SD 45.1 fl (35.1-43.9); Red Blood Count 4.58 M/mm3 (4.6-6.2)
[2021-03-25 22:36] LABS: ALB/GLOB Ratio 1.1 RATIO (0.9-2.4); AST(SGOT) 15 U/L (15-37); Alanine Aminotransfer ALT/SGPT 25 U/L (16-61); Albumin, Serum 3.5 g/dL (3.2-5.0); Alkaline Phosphatase 56 U/L (45-117); Anion Gap 4 (5-15); BUN 18 mg/dL (7-18); BUN/Creat Ratio 16.7 RATIO (10-20); Calcium,Total 9.1 mg/dL (8.5-10.1); Chloride 104 mmol/L (98-107); Cholesterol 210 mg/dL (200); Creatinine, Serum 1.08 mg/dL (0.70-1.30); EST Glomerular Filtration Rate 74 mL/min (>60); Est Glom Filt Rate - Afr Amer 89 mL/min (>60); Globulin 3.2 g/dL (2.2-4.2); Glucose 143 mg/dL (74-106); High Density Lipoprotein 65 mg/dL; PSA,Total - Annual Screen 1.36 ng/mL (0.00-4.00); Potassium 5.4 mmol/L (3.5-5.1); Protein, Total 6.7 g/dL (6.4-8.2); Sodium Level 137 mmol/L (136-145); Triglycerides 107 mg/dL; Very Low Density Lipoprotein 21 mg/dL (5-40)
== END | disposition home or self-care (01) ==
PROVIDERS: PCP Nurse Practitioner; Referring Provider Nurse Practitioner; Visit Provider Nurse Practitioner
DX: Z00.00 Encounter for general adult medical examination without abnormal findings (principal); Z12.5 Encounter for screening for malignant neoplasm of prostate
CPT/HCPCS: 80053; 80061; 84153; 85025; G0103

== ENCOUNTER 2022-03-11 21:38 | Outpatient (CLI) | payer BC, SELFPAY ==
[2022-03-11 22:07] LABS: Absolute Lymphocyte Count 1.18 X10^3/uL (0.83-4.51); Absolute Neutrophil Count 3.4 X10^3/uL (2.0-7.7); Basophil# 0.03 X10^3/uL; Basophil% 0.6 % (0-1); Eosinophil# 0.11 X10^3/uL; Hemoglobin 13.3 g/dL (13.0-16.5); Lymphocyte # 1.18 X10^3/ul (0.83-4.51); Lymphocyte % 21.9 % (19-41); Mean Corp Hgb Conc 31.7 g/dL (32-36); Mean Corpuscular Hgb 30.3 pg (27.0-32.0); Mean Corpuscular Volume 95.7 fL (80-94); Mean Platelet Vol. 10.4 fl (6.2-12.0); Monocyte# 0.69 X10^3/uL; Monocyte% 12.8 % (0-10); NRBC Flagged by Analyzer 0 % (0-5); Neutrophil # 3.37 X10^3/uL (2.7-7.7); Neutrophil % 62.3 % (47-70); Platelet Count 229 K/mm3 (150-450); RBC Distribution Width CV 12.9 % (11.6-14.6); RBC Distribution Width SD 45.5 fl (35.1-43.9); Red Blood Count 4.39 M/mm3 (4.6-6.2); White Blood Count 5.4 K/mm3 (4.4-11.0)
[2022-03-11 22:25] LABS: ALB/GLOB Ratio 1.3 RATIO (0.9-2.4); AST(SGOT) 17 U/L (15-37); Alanine Aminotransfer ALT/SGPT 30 U/L (16-61); Alkaline Phosphatase 58 U/L (45-117); Anion Gap 6 (5-15); BUN 19 mg/dL (7-18); BUN/Creat Ratio 18.1 RATIO (10-20); Calcium,Total 9.2 mg/dL (8.5-10.1); Chloride 105 mmol/L (98-107); Cholesterol 219 mg/dL (200); Creatinine, Serum 1.05 mg/dL (0.70-1.30); EST Glomerular Filtration Rate 76 mL/min (>60); Est Glom Filt Rate - Afr Amer 92 mL/min (>60); Globulin 3.1 g/dL (2.2-4.2); Glucose 98 mg/dL (74-106); High Density Lipoprotein 58 mg/dL; Potassium 4.1 mmol/L (3.5-5.1); Protein, Total 7.1 g/dL (6.4-8.2); Sodium Level 138 mmol/L (136-145); Triglycerides 101 mg/dL; Very Low Density Lipoprotein 20 mg/dL (5-40)
== END 2022-03-11 23:59 | disposition home or self-care (01) ==
PROVIDERS: PCP Nurse Practitioner; Visit Provider Nurse Practitioner
DX: Z00.00 Encounter for general adult medical examination without abnormal findings (principal)
CPT/HCPCS: 80053; 80061; 85025

== ENCOUNTER → 2023-03-23 | Outpatient (CLI) | payer BC, SELFPAY ==
[2023-03-23 22:20] LABS: Absolute Lymphocyte Count 1.04 X10^3/uL (0.83-4.51); Absolute Neutrophil Count 4.1 X10^3/uL (2.0-7.7); Basophil# 0.02 X10^3/uL; Basophil% 0.3 % (0-1); Eosinophil# 0.07 X10^3/uL; Eosinophils% 1.2 % (0-5); Hematocrit 41.8 % (40-54); Hemoglobin 13.4 g/dL (13.0-16.5); Lymphocyte # 1.04 X10^3/ul (0.83-4.51); Lymphocyte % 17.4 % (19-41); Mean Corp Hgb Conc 32.1 g/dL (32-36); Mean Corpuscular Hgb 30.7 pg (27.0-32.0); Mean Corpuscular Volume 95.9 fL (80-94); Mean Platelet Vol. 10.5 fl (6.2-12.0); Monocyte# 0.74 X10^3/uL; Monocyte% 12.4 % (0-10); NRBC Flagged by Analyzer 0 % (0-5); Neutrophil # 4.08 X10^3/uL (2.7-7.7); Neutrophil % 68.4 % (47-70); Platelet Count 212 K/mm3 (150-450); RBC Distribution Width SD 46.5 fl (35.1-43.9); Red Blood Count 4.36 M/mm3 (4.6-6.2)
[2023-03-23 22:50] LABS: ALB/GLOB Ratio 1.3 RATIO (0.9-2.4); AST(SGOT) 21 U/L (15-37); Alanine Aminotransfer ALT/SGPT 27 U/L (16-61); Albumin, Serum 3.9 g/dL (3.2-5.0); Alkaline Phosphatase 57 U/L (45-117); Anion Gap 7 (5-15); BUN 18 mg/dL (7-18); BUN/Creat Ratio 17.8 RATIO (10-20); Calcium,Total 8.7 mg/dL (8.5-10.1); Chloride 104 mmol/L (98-107); Cholesterol 203 mg/dL (200); Creatinine, Serum 1.01 mg/dL (0.70-1.30); EST Glomerular Filtration Rate 79 mL/min (>60); Est Glom Filt Rate - Afr Amer 96 mL/min (>60); Glucose 85 mg/dL (74-106); High Density Lipoprotein 60 mg/dL; PSA,Total - Annual Screen 1.97 ng/mL (0.00-4.00); Potassium 4.2 mmol/L (3.5-5.1); Protein, Total 6.9 g/dL (6.4-8.2); Sodium Level 139 mmol/L (136-145); Triglycerides 116 mg/dL; Very Low Density Lipoprotein 23 mg/dL (5-40)
== END | disposition home or self-care (01) ==
PROVIDERS: PCP Nurse Practitioner; Visit Provider Nurse Practitioner
DX: Z00.00 Encounter for general adult medical examination without abnormal findings (principal)
CPT/HCPCS: 80053; 80061; 84153; 85025; G0103

== ENCOUNTER → 2024-03-14 | Outpatient (CLI) | payer BC, SELFPAY ==
[2024-03-14 22:14] LABS: Absolute Neutrophil Count 3.7 X10^3/uL (2.0-7.7); Basophil# 0.02 X10^3/uL; Basophil% 0.4 % (0-1); Eosinophil# 0.06 X10^3/uL; Eosinophils% 1.1 % (0-5); Hematocrit 42.1 % (40-54); Hemoglobin 13.3 g/dL (13.0-16.5); Lymphocyte % 18.6 % (19-41); Mean Corp Hgb Conc 31.6 g/dL (32-36); Mean Corpuscular Hgb 30.4 pg (27.0-32.0); Mean Corpuscular Volume 96.1 fL (80-94); Mean Platelet Vol. 10.5 fl (6.2-12.0); Monocyte# 0.59 X10^3/uL; NRBC Flagged by Analyzer 0 % (0-5); Neutrophil # 3.68 X10^3/uL (2.7-7.7); Neutrophil % 68.3 % (47-70); Platelet Count 204 K/mm3 (150-450); RBC Distribution Width CV 12.8 % (11.6-14.6); RBC Distribution Width SD 45.5 fl (35.1-43.9); Red Blood Count 4.38 M/mm3 (4.6-6.2); White Blood Count 5.4 K/mm3 (4.4-11.0)
[2024-03-14 22:29] LABS: ALB/GLOB Ratio 1.3 RATIO (0.9-2.4); AST(SGOT) 19 U/L (15-37); Alanine Aminotransfer ALT/SGPT 26 U/L (16-61); Albumin, Serum 3.9 g/dL (3.2-5.0); Alkaline Phosphatase 53 U/L (45-117); Anion Gap 7 (5-15); BUN 17 mg/dL (7-18); BUN/Creat Ratio 14.2 RATIO (10-20); Calcium,Total 9.3 mg/dL (8.5-10.1); Chloride 107 mmol/L (98-107); Cholesterol 207 mg/dL (200); EST Glomerular Filtration Rate 65 mL/min (>60); Est Glom Filt Rate - Afr Amer 78 mL/min (>60); Globulin 2.9 g/dL (2.2-4.2); Glucose 118 mg/dL (74-106); High Density Lipoprotein 79 mg/dL; PSA,Total- Diagnostic 1.98 ng/mL (0.0-4.0); Potassium 4.2 mmol/L (3.5-5.1); Protein, Total 6.8 g/dL (6.4-8.2); Sodium Level 140 mmol/L (136-145); Triglycerides 111 mg/dL; Very Low Density Lipoprotein 22 mg/dL (5-40)
== END | disposition home or self-care (01) ==
PROVIDERS: PCP Nurse Practitioner; Referring Provider Nurse Practitioner; Visit Provider Nurse Practitioner
DX: Z00.00 Encounter for general adult medical examination without abnormal findings (principal)
CPT/HCPCS: 80053; 80061; 84153; 85025

== ENCOUNTER → 2025-03-07 | Outpatient (CLI) | payer BC, SELFPAY ==
--- OUTSIDE RECORDS SUMMARY | 2025-03-07 22:09 | XMS RPT_ITS | CCD ---
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 [address] Abs. Lymph 0.63 thou/cmm Low 1.50-3.65 [facility] Comment on above: Performed By: #### L GFR #### [place] [address] Abs. Loving 0.63 thou/cmm Normal 0.20-1.00 [facility] Comment on above: Performed By: #### L GFR #### [place] [address] Abs. Neut (ANC) 3.24 thou/cmm Normal 3.00-5.67 [facility] Comment on above: Performed By: #### L GFR #### [place] [address] Basophil 0.0 % Normal [facility] Comment on above: Performed By: #### L GFR #### [place] [address] Eosinophil 0.0 % Normal [facility] Comment on above: Performed By: #### L GFR #### [place] [address] Lymphocyte 14.0 % Normal [facility] Comment on above: Performed By: #### L GFR #### [place] [address] Monocyte 14.0 % Normal [facility] Comment on above: Performed By: #### L GFR #### [place] [address] Platelets (Bld) [#/Vol] Normal Normal [facility] Comment on above: Performed By: #### L GFR #### [place] [address] RBC morphology finding Nom (Bld) Normal Normal [facility] Comment on above: Performed By: #### L GFR #### [facility] [address] [place] [address] Seg Neutrophil 72.0 % Normal [facility] Comment on above: Performed By: #### L GFR #### [facility] [address] [place] [address] Diff Type Manual Diff Normal [facility] Comment on above: Performed By: #### L GFR #### [facility] [address] [place] [address] Erythrocyte distribution width (RBC) [Ratio] 15.5 % Normal 11.5-15.9 [facility] Comment on above: Performed By: #### L GFR #### [place] [address] Hematocrit (Bld) [Volume fraction] 41.0 % Low 42.0-52.0 [facility] Comment on above: Performed By: #### L GFR #### [facility] [address] [place] [address] Hemoglobin (Bld) [Mass/Vol] 13.0 g/dL Low 14.0-18.0 [facility] Comment on above: Performed By: #### L GFR #### [place] [address] MCH (RBC) [Entitic mass] 29.5 pg Normal 27.0-31.0 [facility] Comment on above: Performed By: #### L GFR #### [facility] [address] [place] [address] MCHC (RBC) [Mass/Vol] 31.7 % Low 32.0-36.0 [facility] Comment on above: Performed By: #### L GFR #### [place] [address] MCV (RBC) [Entitic vol] 93.0 fl Normal 80.0-94.0 [facility] Comment on above: Performed By: #### L GFR #### [place] [address] Platelet mean volume (Bld) [Entitic vol] 10.6 fl High 7.1-10.5 [facility] Comment on above: Performed By: #### L GFR #### [facility] [address] [place] [address] Platelets (Bld) [#/Vol] 202 thou/cmm Normal 150-400 [facility] Comment on above: Performed By: #### L GFR #### [facility] [address] [place] [address] RBC (Bld) [#/Vol] 4.41 mil/cmm Low 4.60-6.20 [facility] Comment on above: Performed By: #### L GFR #### [place] [address] WBC (Bld) [#/Vol] 4.5 thou/cmm Low 4.8-10.8 [facility] Comment on above: Performed By: #### L GFR #### [place] [address] MDRD eGFRon 04-12-2018 GFR/1.73 sq M predicted among non-blacks MDRD (S/P/Bld) [Vol rate/Area] mL/min/{1.73_m2} Normal >60mL/min/1.73 m2 [facility] Comment on above: Result Comment: If t he patient is , multiply the result by 1.210. Performed By: #### L GFR #### [place] [address] Basic Panelon 04-05-2018 Anion gap [Moles/Vol] 12 mmol/L Normal 8-20 [facility] Comment on above: Performed By: #### L P8 #### [place] [address] Calcium [Mass/Vol] 8.9 mg/dL Normal 8.5-10.1 [facility] Comment on above: Performed By: #### L P8 #### [place] [address] Chloride [Moles/Vol] 103 mmol/L Normal 98-107 [facility] Comment on above: Performed By: #### L P8 #### [facility] [address] [place], [place] [address] CO2 Blood 30 mEq/L Normal 21-32 [facility] Comment on above: Performed By: #### L P8 #### [facility] [address] [place], [place] [address] Creatinine [Mass/Vol] 0.84 mg/dL Normal 0.67-1.17 [facility] Comment on above: Performed By: #### L P8 #### [facility] [address] [place], [place] [address] Glucose [Mass/Vol] 84 mg/dL Normal 70-99 [facility] Comment on above: Performed By: #### L P8 #### [facility] [address] [place], [place] [address] Potassium [Moles/Vol] 4.6 mmol/L Normal 3.5-5.1 [facility] Comment on above: Performed By: #### L P8 #### [facility] [address] [place], [place] [address] Sodium [Moles/Vol] 140 mmol/L Normal 136-145 [facility] Comment on above: Performed By: #### L P8 #### [facility] [address] [place], [place] [address] Urea nitrogen [Mass/Vol] 16 mg/dL Normal 7-25 [facility] Comment on above: Performed By: #### L P8 #### [facility] [address] [place], [place] [address] Urea nitrogen/Creatinine [Mass ratio] 19 mg/mg Normal 10-20 [facility] Comment on above: Performed By: #### L P8 #### [facility] [address] [place], [place] [address] Hemogram/Diffon 04-05-2018 Erythrocyte distribution width (RBC) [Ratio] 15.6 % Normal 11.5-15.9 [facility] Comment on above: Performed By: #### L P8 #### [facility] [address] [place], [place] [address] MCV (RBC) [Entitic vol] 92.6 fL Normal 80.0-94.0 [facility] Comment on above: Performed By: #### L P8 #### [facility] [address] [place] [address] RBC (Bld) [#/Vol] 4.43 mil/cmm Low 4.60-6.20 [facility] Comment on above: Performed By: #### L P8 #### [facility] [address] [place] [address] Hemogram/Manual Diffon 04-05 Abs. Baso 0.00 thou/cmm Normal 0.00-0.08 [facility] Comment on above: Performed By: #### L P8 #### [facility] [address] [place] [address] Abs. Eosin 0.20 thou/cmm Normal 0.00-0.41 [facility] Comment on above: Performed By: #### L P8 #### [facility] [address] [place] [address] Abs. Lymph 0.94 thou/cmm Low 1.50-3.65 [facility] Comment on above: Performed By: #### L P8 #### [place] [address] Abs. Loving 0.47 thou/cmm Normal 0.20-1.00 [facility] Comment on above: Performed By: #### L P8 #### [place] [address] Abs. Neut (ANC) 2.29 thou/cmm Low 3.00-5.67 [facility] Comment on above: Performed By: #### L P8 #### [facility] [address] [place] [address] Basophil 0.0 % Normal [facility] Comment on above: Performed By: #### L P8 #### [facility] [address] [place] [address] Eosinophil 5.0 % Normal [facility] Comment on above: Performed By: #### L P8 #### [place] [address] Lymphocyte 24.0 % Normal [facility] Comment on above: Performed By: #### L P8 #### [facility] [address] [place] [address] Monocyte 12.0 % Normal [facility] Comment on above: Performed By: #### L P8 #### [facility] [address] [place] [address] Platelets (Bld) [#/Vol] Normal Normal [facility] Comment on above: Performed By: #### L P8 #### [facility] [address] [place] [address] RBC morphology finding Nom (Bld) Normal Normal [facility] Comment on above: Performed By: #### L P8 #### [facility] [address] [place] [address] Seg Neutrophil 59.0 % Normal [facility] Comment on above: Performed By: #### L P8 #### [facility] [address] [place] [address] Diff Type Manual Diff Normal [facility] Comment on above: Performed By: #### L P8 #### [facility] [address] [place] [address] Hematocrit (Bld) [Volume fraction] 41.0 % Low 42.0-52.0 [facility] Comment on above: Performed By: #### L P8 #### [facility] [address] [place] [address] Hemoglobin (Bld) [Mass/Vol] 12.8 g/dL Low 14.0-18.0 [facility] Comment on above: Performed By: #### L P8 #### [facility] [address] [place] [address] MCH (RBC) [Entitic mass] 28.9 pg Normal 27.0-31.0 [facility] Comment on above: Performed By: #### L P8 #### [facility] [address] [place] [address] MCHC (RBC) [Mass/Vol] 31.2 % Low 32.0-36.0 [facility] Comment on above: Performed By: #### L P8 #### [facility] [address] [place] [address] Platelet mean volume (Bld) [Entitic vol] 10.2 fl Normal 7.1-10.5 [facility] Comment on above: Performed By: #### L P8 #### [place] [address] Platelets (Bld) [#/Vol] 219 thou/cmm Normal 150-400 [facility] Comment on above: Performed By: #### L P8 #### [place] [id number] WBC (Bld) [#/Vol] 3.9 thou/cmm Low 4.8-10.8 [facility] Comment on above: Performed By: #### L P8 #### [place] [address] MDRD eGFRon 04-05-2018 GFR/1.73 sq M predicted among non-blacks MDRD (S/P/Bld) [Vol rate/Area] mL/min/{1.73_m2} Normal >60mL/min/1.73 m2 [facility] Comment on above: Result Comment: If t he patient is , multiply the result by 1.210. Performed By: #### L GFR #### [place] [address] Basic Panelon 03-29-2018 Anion gap [Moles/Vol] 9 mmol/L Normal 8-20 [facility] Comment on above: Performed By: #### L P8 #### [place] [address] Calcium [Mass/Vol] 8.6 mg/dL Normal 8.5-10.1 [facility] Comment on above: Performed By: #### L P8 #### [place] [address] Chloride [Moles/Vol] 102 mmol/L Normal 98-107 [facility] Comment on above: Performed By: #### L P8 #### [place] [address] CO2 Blood 30 mEq/L Normal 21-32 [facility] Comment on above: Performed By: #### L P8 #### [facility] [address] [place] [address] Creatinine [Mass/Vol] 0.81 mg/dL Normal 0.67-1.17 [facility] Comment on above: Performed By: #### L P8 #### [facility] [address] [place] [address] Glucose [Mass/Vol] 73 mg/dL Normal 70-99 [facility] Comment on above: Performed By: #### L P8 #### [facility] [address] [place] [address] Potassium [Moles/Vol] 4.6 mmol/L Normal 3.5-5.1 [facility] Comment on above: Performed By: #### L P8 #### [facility] [address] [place] [address] Sodium [Moles/Vol] 137 mmol/L Normal 136-145 [facility] Comment on above: Performed By: #### L P8 #### [facility] [address] [place] [address] Urea nitrogen [Mass/Vol] 17 mg/dL Normal 7-25 [facility] Comment on above: Performed By: #### L P8 #### [facility] [address] [place] [address] Urea nitrogen/Creatinine [Mass ratio] 21 mg/mg High 10-20 [facility] Comment on above: Performed By: #### L P8 #### [facility] [address] [place] [address] Hemogram/Manual Diffon 03-29 Abs. Baso 0.00 thou/cmm Normal 0.00-0.08 [facility] Comment on above: Performed By: #### L P8 #### [facility] [address] [place] [address] Abs. Eosin 0.09 thou/cmm Normal 0.00-0.41 [facility] Comment on above: Performed By: #### L P8 #### [place] [address] Abs. Lymph 0.75 thou/cmm Low 1.50-3.65 [facility] Comment on above: Performed By: #### L P8 #### [facility] [address] [place] [address] Abs. Loving 0.85 thou/cmm Normal 0.20-1.00 [facility] Comment on above: Performed By: #### L P8 #### [facility] [address] [place] [address] Abs. Neut (ANC) 3.01 thou/cmm Normal 3.00-5.67 [facility] Comment on above: Performed By: #### L P8 #### [facility] [address] [place] [address] Anisocytosis Ql (Bld) Few Normal [facility] Comment on above: Performed By: #### L P8 #### [facility] [address] [place] [address] Basophil 0.0 % Normal [facility] Comment on above: Performed By: #### L P8 #### [facility] [address] [place] [address] Eosinophil 2.0 % Normal [facility] Comment on above: Performed By: #### L P8 #### [place] [address] Lymphocyte 16.0 % Normal [facility] Comment on above: Performed By: #### L P8 #### [place] [address] Monocyte 18.0 % Normal [facility] Comment on above: Performed By: #### L P8 #### [place] [address] Platelets (Bld) [#/Vol] Normal Normal [facility] Comment on above: Performed By: #### L P8 #### [facility] [address] [place] [address] Poikilocytosis Few Normal [facility] Comment on above: Performed By: #### L P8 #### [place] [address] Seg Neutrophil 64.0 % Normal [facility] Comment on above: Performed By: #### L P8 #### [facility] [address] [place] [address] Diff Type Manual Diff Normal [facility] Comment on above: Performed By: #### L P8 #### [place] [address] Erythrocyte distribution width (RBC) [Ratio] 15.3 % Normal 11.5-15.9 [facility] Comment on above: Performed By: #### L P8 #### [place] [address] Hematocrit (Bld) [Volume fraction] 39.1 % Low 42.0-52.0 [facility] Comment on above: Performed By: #### L P8 #### [place] [address] Hemoglobin (Bld) [Mass/Vol] 12.3 g/dL Low 14.0-18.0 [facility] Comment on above: Performed By: #### L P8 #### [place] [address] MCH (RBC) [Entitic mass] 28.9 pg Normal 27.0-31.0 [facility] Comment on above: Performed By: #### L P8 #### [place] [address] MCHC (RBC) [Mass/Vol] 31.5 % Low 32.0-36.0 [facility] Comment on above: Performed By: #### L P8 #### [place] [address] MCV (RBC) [Entitic vol] 92.0 fl Normal 80.0-94.0 [facility] Comment on above: Performed By: #### L P8 #### [place] [address] Platelet mean volume (Bld) [Entitic vol] 10.4 fl Normal 7.1-10.5 [facility] Comment on above: Performed By: #### L P8 #### [place] [address] Platelets (Bld) [#/Vol] 187 thou/cmm Normal 150-400 [facility] Comment on above: Performed By: #### L P8 #### [facility] [address] [place] [address] RBC (Bld) [#/Vol] 4.25 mil/cmm Low 4.60-6.20 [facility] Comment on above: Performed By: #### L P8 #### [facility] [address] [place] [address] WBC (Bld) [#/Vol] 4.7 thou/cmm Low 4.8-10.8 [facility] Comment on above: Performed By: #### L P8 #### [place] [address] MDRD eGFRon 03-29-2018 GFR/1.73 sq M predicted among non-blacks MDRD (S/P/Bld) [Vol rate/Area] mL/min/{1.73_m2} Normal >60mL/min/1.73 m2 [facility] Comment on above: Result Comment: If t he patient is , multiply the result by 1.210. Performed By: #### L P8 #### [place] [address] Basic Panelon 03-22-2018 Anion gap [Moles/Vol] 9 mmol/L Normal 8-20 [facility] Comment on above: Performed By: #### L P8 #### [place] [address] Calcium [Mass/Vol] 9.1 mg/dL Normal 8.5-10.1 [facility] Comment on above: Performed By: #### L P8 #### [facility] [address] [place] [address] Chloride [Moles/Vol] 102 mmol/L Normal 98-107 [facility] Comment on above: Performed By: #### L P8 #### [place] [address] CO2 Blood 29 mEq/L Normal 21-32 [facility] Comment on above: Performed By: #### L P8 #### [facility] [address] [place], [place] [address] Creatinine [Mass/Vol] 0.90 mg/dL Normal 0.67-1.17 [facility] Comment on above: Performed By: #### L P8 #### [facility] [address] [place], [place] [address] Glucose [Mass/Vol] 90 mg/dL Normal 70-99 [facility] Comment on above: Performed By: #### L P8 #### [facility] [address] [place] [address] Potassium [Moles/Vol] 4.6 mmol/L Normal 3.5-5.1 [facility] Comment on above: Performed By: #### L P8 #### [facility] [address] [place] [address] Sodium [Moles/Vol] 136 mmol/L Normal 136-145 [facility] Comment on above: Performed By: #### L P8 #### [facility] [address] [place] [address] Urea nitrogen [Mass/Vol] 12 mg/dL Normal 7-25 [facility] Comment on above: Performed By: #### L P8 #### [place] [address] Urea nitrogen/Creatinine [Mass ratio] 13 mg/mg Normal 10-20 [facility] Comment on above: Performed By: #### L P8 #### [place] [address] Hemogram/Manual Diffon 03-22 Abs. Baso 0.00 thou/cmm Normal 0.00-0.08 [facility] Comment on above: Performed By: #### L P8 #### [place] [address] Abs. Eosin 0.07 thou/cmm Normal 0.00-0.41 [facility] Comment on above: Performed By: #### L P8 #### [place] [address] Abs. Lymph 0.74 thou/cmm Low 1.50-3.65 [facility] Comment on above: Performed By: #### L P8 #### [facility] [address] [place] [address] Abs. Loving 0.49 thou/cmm Normal 0.20-1.00 [facility] Comment on above: Performed By: #### L P8 #### [facility] [address] [place] [address] Abs. Neut (ANC) 2.20 thou/cmm Low 3.00-5.67 [facility] Comment on above: Performed By: #### L P8 #### [facility] [address] [place] [address] Anisocytosis Ql (Bld) Slight Normal [facility] Comment on above: Performed By: #### L P8 #### [facility] [address] [place] [address] Basophil 0.0 % Normal [facility] Comment on above: Performed By: #### L P8 #### [facility] [address] [place] [address] Elliptocytosis Few Normal [facility] Comment on above: Performed By: #### L P8 #### [facility] [address] [place] [address] Eosinophil 2.0 % Normal [facility] Comment on above: Performed By: #### L P8 #### [facility] [address] [place] [address] Lymphocyte 21.0 % Normal [facility] Comment on above: Performed By: #### L P8 #### [facility] [address] [place] [address] Monocyte 14.0 % Normal [facility] Comment on above: Performed By: #### L P8 #### [facility] [address] [place] [address] Platelets (Bld) [#/Vol] Normal Normal [facility] Comment on above: Performed By: #### L P8 #### [facility] [address] [place] [address] Poikilocytosis Few Normal [facility] Comment on above: Performed By: #### L P8 #### [facility] [address] [place] [address] Polychromasia Few Normal [facility] Comment on above: Performed By: #### L P8 #### [facility] [address] [place] [address] Seg Neutrophil 63.0 % Normal [facility] Comment on above: Performed By: #### L P8 #### [facility] [address] [place] [address] Diff Type Manual Diff Normal [facility] Comment on above: Performed By: #### L P8 #### [facility] [address] [place] [address] Erythrocyte distribution width (RBC) [Ratio] 15.2 % Normal 11.5-15.9 [facility] Comment on above: Performed By: #### L P8 #### [facility] [address] [place] [address] Hematocrit (Bld) [Volume fraction] 41.0 % Low 42.0-52.0 [facility] Comment on above: Performed By: #### L P8 #### [facility] [address] [place] [address] Hemoglobin (Bld) [Mass/Vol] 12.9 g/dL Low 14.0-18.0 [facility] Comment on above: Performed By: #### L P8 #### [facility] [address] [place] [address] MCH (RBC) [Entitic mass] 28.5 pg Normal 27.0-31.0 [facility] Comment on above: Performed By: #### L P8 #### [facility] [address] [place] [address] MCHC (RBC) [Mass/Vol] 31.5 % Low 32.0-36.0 [facility] Comment on above: Performed By: #### L P8 #### [facility] [address] [place] [address] MCV (RBC) [Entitic vol] 90.5 fl Normal 80.0-94.0 [facility] Comment on above: Performed By: #### L P8 #### [facility] [address] [place] [address] Platelet mean volume (Bld) [Entitic vol] 10.5 fl Normal 7.1-10.5 [facility] Comment on above: Performed By: #### L P8 #### [facility] [address] [place] [address] Platelets (Bld) [#/Vol] 168 thou/cmm Normal 150-400 [facility] Comment on above: Performed By: #### L P8 #### [place] [address] RBC (Bld) [#/Vol] 4.53 mil/cmm Low 4.60-6.20 [facility] Comment on above: Performed By: #### L P8 #### [place] [address] WBC (Bld) [#/Vol] 3.5 thou/cmm Low 4.8-10.8 [facility] Comment on above: Performed By: #### L P8 #### [place] [address] MDRD eGFRon 03-22-2018 GFR/1.73 sq M predicted among non-blacks MDRD (S/P/Bld) [Vol rate/Area] mL/min/{1.73_m2} Normal >60mL/min/1.73 m2 [facility] Comment on above: Result Comment: If t he patient is , multiply the result by 1.210. Performed By: #### L P8 #### [facility] [address] [place] [address] Basic Panelon 03-16-2018 Anion gap [Moles/Vol] 9 mmol/L Normal 8-20 [facility] Comment on above: Performed By: #### L PT #### [facility] [address] [place] [address] Calcium [Mass/Vol] 8.9 mg/dL Normal 8.5-10.1 [facility] Comment on above: Performed By: #### L PT #### [place] [address] Chloride [Moles/Vol] 104 mmol/L Normal 98-107 [facility] Comment on above: Performed By: #### L PT #### [facility] [address] [place], [place] [address] CO2 Blood 29 mEq/L Normal 21-32 [facility] Comment on above: Performed By: #### L PT #### [facility] [address] [place], [place] [address] Creatinine [Mass/Vol] 0.92 mg/dL Normal 0.67-1.17 [facility] Comment on above: Performed By: #### L PT #### [facility] [address] [place], [place] [address] Glucose [Mass/Vol] 92 mg/dL Normal 70-99 [facility] Comment on above: Performed By: #### L PT #### [facility] [address] [place], [place] [address] Potassium [Moles/Vol] 4.7 mmol/L Normal 3.5-5.1 [facility] Comment on above: Performed By: #### L PT #### [facility] [address] [place], [place] [address] Sodium [Moles/Vol] 137 mmol/L Normal 136-145 [facility] Comment on above: Performed By: #### L PT #### [facility] [address] [place], [place] [address] Urea nitrogen [Mass/Vol] 16 mg/dL Normal 7-25 [facility] Comment on above: Performed By: #### L PT #### [facility] [address] [place], [place] [address] Urea nitrogen/Creatinine [Mass ratio] 17 mg/mg Normal 10-20 [facility] Comment on above: Performed By: #### L PT #### [facility] [address] [place], [place] [address] Hemogram/Diffon 03-16-2018 Hemoglobin (Bld) [Mass/Vol] 12.6 g/dL Low 14.0-18.0 [facility] Comment on above: Performed By: #### L PT #### [address] [address] MCV (RBC) [Entitic vol] 91.6 fL Normal 80.0-94.0 [facility] Comment on above: Performed By: #### L PT #### [facility] [address] [place] [address] Platelets (Bld) [#/Vol] 177 thou/cmm Normal 150-400 [facility] Comment on above: Performed By: #### L PT #### [facility] [address] [place] [address] WBC (Bld) [#/Vol] 4.2 thou/cmm Low 4.8-10.8 [facility] Comment on above: Performed By: #### L PT #### [place] [address] Hemogram/Manual Diffon 03-16 Abs. Baso 0.00 thou/cmm Normal 0.00-0.08 [facility] Comment on above: Performed By: #### L PT #### [place] [address] Abs. Eosin 0.04 thou/cmm Normal 0.00-0.41 [facility] Comment on above: Performed By: #### L PT #### [place] [address] Abs. Lymph 0.63 thou/cmm Low 1.50-3.65 [facility] Comment on above: Performed By: #### L PT #### [place] [address] Abs. Loving 0.63 thou/cmm Normal 0.20-1.00 [facility] Comment on above: Performed By: #### L PT #### [place] [address] Abs. Neut (ANC) 2.90 thou/cmm Low 3.00-5.67 [facility] Comment on above: Performed By: #### L PT #### [place] [address] Anisocytosis Ql (Bld) Few Normal [facility] Comment on above: Performed By: #### L PT #### [facility] [address] [place] [address] Basophil 0.0 % Normal [facility] Comment on above: Performed By: #### L PT #### [facility] [address] [place] [address] Diff Type Manual Diff Normal [facility] Comment on above: Performed By: #### L PT #### [facility] [address] [place] [address] Elliptocytosis Few Normal [facility] Comment on above: Performed By: #### L PT #### [facility] [address] [place] [address] Eosinophil 1.0 % Normal [facility] Comment on above: Performed By: #### L PT #### [facility] [address] [place] [address] Lymphocyte 15.0 % Normal [facility] Comment on above: Performed By: #### L PT #### [facility] [address] [place] [address] Monocyte 15.0 % Normal [facility] Comment on above: Performed By: #### L PT #### [facility] [address] [place] [address] Platelets (Bld) [#/Vol] Normal Normal [facility] Comment on above: Performed By: #### L PT #### [facility] [address] [place] [address] Seg Neutrophil 69.0 % Normal [facility] Comment on above: Performed By: #### L PT #### [facility] [address] [place] [address] Erythrocyte distribution width (RBC) [Ratio] 15.2 % Normal 11.5-15.9 [facility] Comment on above: Performed By: #### L PT #### [facility] [address] [place] [address] Hematocrit (Bld) [Volume fraction] 40.5 % Low 42.0-52.0 [facility] Comment on above: Performed By: #### L PT #### [facility] [address] [place] [address] MCH (RBC) [Entitic mass] 28.5 pg Normal 27.0-31.0 [facility] Comment on above: Performed By: #### L PT #### [place] [address] MCHC (RBC) [Mass/Vol] 31.1 % Low 32.0-36.0 [facility] Comment on above: Performed By: #### L PT #### [place] [address] Platelet mean volume (Bld) [Entitic vol] 10.8 fl High 7.1-10.5 [facility] Comment on above: Performed By: #### L PT #### [place] [address] RBC (Bld) [#/Vol] 4.42 mil/cmm Low 4.60-6.20 [facility] Comment on above: Performed By: #### L PT #### [place] [address] MDRD eGFRon 03-16-2018 GFR/1.73 sq M predicted among non-blacks MDRD (S/P/Bld) [Vol rate/Area] mL/min/{1.73_m2} Normal >60mL/min/1.73 m2 [facility] Comment on above: Result Comment: If t he patient is , multiply the result by 1.210. Performed By: #### L P8 #### [place] [address] Basic Panelon 03-08-2018 Anion gap [Moles/Vol] 8 mmol/L Normal 8-20 [facility] Comment on above: Performed By: #### L PT #### [place] [address] Calcium [Mass/Vol] 9.3 mg/dL Normal 8.5-10.1 [facility] Comment on above: Performed By: #### L PT #### [place] [address] Chloride [Moles/Vol] 103 mmol/L Normal 98-107 [facility] Comment on above: Performed By: #### L PT #### [facility] [address] [place], [place] [address] CO2 Blood 28 mEq/L Normal 21-32 [facility] Comment on above: Performed By: #### L PT #### [facility] [address] [place], [place] [address] Creatinine [Mass/Vol] 0.81 mg/dL Normal 0.67-1.17 [facility] Comment on above: Performed By: #### L PT #### [facility] [address] [place], [place] [address] Glucose [Mass/Vol] 92 mg/dL Normal 70-99 [facility] Comment on above: Performed By: #### L PT #### [facility] [address] [place], [place] [address] Potassium [Moles/Vol] 4.5 mmol/L Normal 3.5-5.1 [facility] Comment on above: Performed By: #### L PT #### [facility] [address] [place] [address] Sodium [Moles/Vol] 134 mmol/L Low 136-145 [facility] Comment on above: Performed By: #### L PT #### [facility] [address] [place] [address] Urea nitrogen [Mass/Vol] 17 mg/dL Normal 7-25 [facility] Comment on above: Performed By: #### L PT #### [facility] [address] [place], [place] [address] Urea nitrogen/Creatinine [Mass ratio] 21 mg/mg High 10-20 [facility] Comment on above: Performed By: #### L PT #### [facility] [address] [place], [place] [address] Hemogram/Manual Diffon 03-08 Abs. Baso 0.05 thou/cmm Normal 0.00-0.08 [facility] Comment on above: Performed By: #### L PT #### [place] [address] Abs. Eosin 0.15 thou/cmm Normal 0.00-0.41 [facility] Comment on above: Performed By: #### L PT #### [facility] [address] [place] [address] Abs. Lymph 0.77 thou/cmm Low 1.50-3.65 [facility] Comment on above: Performed By: #### L PT #### [facility] [address] [place] [address] Abs. Loving 0.61 thou/cmm Normal 0.20-1.00 [facility] Comment on above: Performed By: #### L PT #### [facility] [address] [place] [address] Abs. Neut (ANC) 3.52 thou/cmm Normal 3.00-5.67 [facility] Comment on above: Performed By: #### L PT #### [facility] [address] [place] [address] Anisocytosis Ql (Bld) Few Normal [facility] Comment on above: Performed By: #### L PT #### [facility] [address] [place] [address] Basophil 1.0 % Normal [facility] Comment on above: Performed By: #### L PT #### [facility] [address] [place] [address] Elliptocytosis Few Normal [facility] Comment on above: Performed By: #### L PT #### [place] [address] Eosinophil 3.0 % Normal [facility] Comment on above: Performed By: #### L PT #### [place] [address] Lymphocyte 15.0 % Normal [facility] Comment on above: Performed By: #### L PT #### [facility] [address] [place] [address] Monocyte 12.0 % Normal [facility] Comment on above: Performed By: #### L PT #### [place] [address] Platelets (Bld) [#/Vol] Normal Normal [facility] Comment on above: Performed By: #### L PT #### [facility] [address] [place] [address] Seg Neutrophil 69.0 % Normal [facility] Comment on above: Performed By: #### L PT #### [facility] [address] [place] [address] Diff Type Manual Diff Normal [facility] Comment on above: Performed By: #### L PT #### [facility] [address] [place] [address] Erythrocyte distribution width (RBC) [Ratio] 15.0 % Normal 11.5-15.9 [facility] Comment on above: Performed By: #### L PT #### [facility] [address] [place] [address] Hematocrit (Bld) [Volume fraction] 39.6 % Low 42.0-52.0 [facility] Comment on above: Performed By: #### L PT #### [facility] [address] [place] [address] Hemoglobin (Bld) [Mass/Vol] 12.2 g/dL Low 14.0-18.0 [facility] Comment on above: Performed By: #### L PT #### [facility] [address] [place] [address] MCH (RBC) [Entitic mass] 28.3 pg Normal 27.0-31.0 [facility] Comment on above: Performed By: #### L PT #### [facility] [address] [place] [address] MCHC (RBC) [Mass/Vol] 30.8 % Low 32.0-36.0 [facility] Comment on above: Performed By: #### L PT #### [facility] [address] [place] [address] MCV (RBC) [Entitic vol] 91.9 fl Normal 80.0-94.0 [facility] Comment on above: Performed By: #### L PT #### [facility] [address] [place] [address] Platelet mean volume (Bld) [Entitic vol] 10.8 fl High 7.1-10.5 [facility] Comment on above: Performed By: #### L PT #### [facility] [address] [place], [place] [address] Platelets (Bld) [#/Vol] 214 thou/cmm Normal 150-400 [facility] Comment on above: Performed By: #### L PT #### [facility] [address] [place], [place] [address] RBC (Bld) [#/Vol] 4.31 mil/cmm Low 4.60-6.20 [facility] Comment on above: Performed By: #### L PT #### [facility] [address] [place] [address] WBC (Bld) [#/Vol] 5.1 thou/cmm Normal 4.8-10.8 [facility] Comment on above: Performed By: #### L PT #### [place] [address] MDRD eGFRon 03-08-2018 GFR/1.73 sq M predicted among non-blacks MDRD (S/P/Bld) [Vol rate/Area] mL/min/{1.73_m2} Normal >60mL/min/1.73 m2 [facility] Comment on above: Result Comment: If t he patient is , multiply the result by 1.210. Performed By: #### L PT #### [place] [address] Basic Panelon 03-01-2018 Anion gap [Moles/Vol] 8 mmol/L Normal 8-20 [facility] Comment on above: Performed By: #### L PT #### [facility] [address] [place] [address] Calcium [Mass/Vol] 8.7 mg/dL Normal 8.5-10.1 [facility] Comment on above: Performed By: #### L PT #### [place] [id number] Chloride [Moles/Vol] 107 mmol/L Normal 98-107 [facility] Comment on above: Performed By: #### L PT #### [facility] [address] [place], [place] [address] CO2 Blood 30 mEq/L Normal 21-32 [facility] Comment on above: Performed By: #### L PT #### [facility] [address] [place], [place] [address] Creatinine [Mass/Vol] 0.80 mg/dL Normal 0.67-1.17 [facility] Comment on above: Performed By: #### L PT #### [facility] [address] [place], [place] [address] Glucose [Mass/Vol] 93 mg/dL Normal 70-99 [facility] Comment on above: Performed By: #### L PT #### [facility] [address] [place], [place] [address] Potassium [Moles/Vol] 4.4 mmol/L Normal 3.5-5.1 [facility] Comment on above: Performed By: #### L PT #### [facility] [address] [place], [place] [address] Sodium [Moles/Vol] 140 mmol/L Normal 136-145 [facility] Comment on above: Performed By: #### L PT #### [facility] [address] [place], [place] [address] Urea nitrogen [Mass/Vol] 15 mg/dL Normal 7-25 [facility] Comment on above: Performed By: #### L PT #### [facility] [address] [place], [place] [address] Urea nitrogen/Creatinine [Mass ratio] 19 mg/mg Normal 10-20 [facility] Comment on above: Performed By: #### L PT #### [facility] [address] [place], [place] [address] Hemogram/Diffon 03-01-2018 Abs. Baso 0.02 thou/cmm Normal 0.00-0.08 [facility] Comment on above: Performed By: #### L PT #### [facility] [address] [place], [place] [address] Abs. Loving 0.69 thou/cmm Normal 0.20-1.00 [facility] Comment on above: Performed By: #### L PT #### [facility] [address] [place], [place] [address] Abs. Neut (ANC) 3.13 thou/cmm Normal 3.00-5.67 [facility] Comment on above: Performed By: #### L PT #### [facility] [address] [place], [place] [address] Basophils/100 WBC (Bld) 0.4 % Normal [facility] Comment on above: Performed By: #### L PT #### [facility] [address] [place], [place] [address] Eosinophils (Bld) [#/Vol] 0.17 thou/cmm Normal 0.00-0.41 [facility] Comment on above: Performed By: #### L PT #### [facility] [address] [place] [address] Eosinophils/100 WBC (Bld) 3.4 % Normal [facility] Comment on above: Performed By: #### L PT #### [facility] [address] [place] [address] Erythrocyte distribution width (RBC) [Ratio] 14.7 % Normal 11.5-15.9 [facility] Comment on above: Performed By: #### L PT #### [facility] [address] [place] [address] Hematocrit (Bld) [Volume fraction] 38.6 % Low 42.0-52.0 [facility] Comment on above: Performed By: #### L PT #### [facility] [address] [place] [address] Hemoglobin (Bld) [Mass/Vol] 12.0 g/dL Low 14.0-18.0 [facility] Comment on above: Performed By: #### L PT #### [facility] [address] [place] [address] Lymphocytes (Bld) [#/Vol] 0.99 thou/cmm Low 1.50-3.65 [facility] Comment on above: Performed By: #### L PT #### [place] [address] Lymphocytes/100 WBC (Bld) 19.7 % Normal [facility] Comment on above: Performed By: #### L PT #### [facility] [address] [place], [place] [address] MCH (RBC) [Entitic mass] 28.6 pg Normal 27.0-31.0 [facility] Comment on above: Performed By: #### L PT #### [facility] [address] [place], [place] [address] MCHC (RBC) [Mass/Vol] 31.1 % Low 32.0-36.0 [facility] Comment on above: Performed By: #### L PT #### [facility] [address] [place] [address] MCV (RBC) [Entitic vol] 92.1 fL Normal 80.0-94.0 [facility] Comment on above: Performed By: #### L PT #### [place] [address] Monocytes/100 WBC (Bld) 13.7 % Normal [facility] [facility] Comment on above: Performed By: #### L PT #### [place] [address] Platelet mean volume (Bld) [Entitic vol] 10.4 fL Normal 7.1-10.5 [facility] Comment on above: Performed By: #### L PT #### [place] [address] Platelets (Bld) [#/Vol] 218 thou/cmm Normal 150-400 [facility] Comment on above: Performed By: #### L PT #### [place] [address] RBC (Bld) [#/Vol] 4.19 mil/cmm Low 4.60-6.20 [facility] Comment on above: Performed By: #### L PT #### [facility] [address] [place] [address] Seg Neutrophil 62.8 % Normal [facility] Comment on above: Performed By: #### L PT #### [place] [address] WBC (Bld) [#/Vol] 5.0 thou/cmm Normal 4.8-10.8 [facility] Comment on above: Performed By: #### L PT #### [facility] [address] [place] [id number] MDRD eGFRon 03-01-2018 GFR/1.73 sq M predicted among non-blacks MDRD (S/P/Bld) [Vol rate/Area] mL/min/{1.73_m2} Normal >60mL/min/1.73 m2 [facility] Comment on above: Result Comment: If t he patient is , multiply the result by 1.210. Performed By: #### L PT #### [place] [address] Cult and Smr Aerobicon 02-11 Cult and Smr Aerobic Test performed at [facility] Rare Mixed skin alem. No further identification to follow. Plates will be held for 5 days. Rare Gram positive cocci in pairs Few Polymorphonuclear leukocytes Rare Squamous epithelial cells Normal [facility] Comment on above: Performed By: #### L PT #### [place] [address] Cult and Smr Aerobicon 01-06 Cult and Smr Aerobic Test performed at [facility] Few Mixed skin alem. No further identification to follow. Plates will be held for 5 days. Rare Gram positive cocci Few Polymorphonuclear leukocytes Few Squamous epithelial cells ORGANISM: Morganella morganii (ID: 1) Rare Normal [facility] Comment on above: Performed By: #### C _AER #### [place] [address] Basic Panelon 12-16-2017 Anion gap [Moles/Vol] 9 mmol/L Normal 8-20 [facility] Comment on above: Performed By: #### L P8 #### [place] [id number] Calcium [Mass/Vol] 9.2 mg/dL Normal 8.5-10.1 [facility] Comment on above: Performed By: #### L P8 #### [place] [id number] Chloride [Moles/Vol] 104 mmol/L Normal 98-107 [facility] Comment on above: Performed By: #### L P8 #### [facility] [address] [place] [address] CO2 Blood 30 mEq/L Normal 21-32 [facility] Comment on above: Performed By: #### L P8 #### [facility] [address] [place] [address] Creatinine [Mass/Vol] 0.87 mg/dL Normal 0.67-1.17 [facility] Comment on above: Performed By: #### L P8 #### [facility] [address] [place] [address] Glucose [Mass/Vol] 100 mg/dL High 70-99 [facility] Comment on above: Performed By: #### L P8 #### [facility] [address] [place] [address] Potassium [Moles/Vol] 4.2 mmol/L Normal 3.5-5.1 [facility] Comment on above: Performed By: #### L P8 #### [facility] [address] [place] [address] Sodium [Moles/Vol] 138 mmol/L Normal 136-145 [facility] Comment on above: Performed By: #### L P8 #### [facility] [address] [place] [address] Urea nitrogen [Mass/Vol] 12 mg/dL Normal 7-25 [facility] Comment on above: Performed By: #### L P8 #### [place] [address] Urea nitrogen/Creatinine [Mass ratio] 14 mg/mg Normal 10-20 [facility] Comment on above: Performed By: #### L P8 #### [place] [address] Cult Bloodon 12-16-2017 Cult Blood Test performed at [facility] No growth The blood cultures are under-filled. Adding volumes lower or higher than 8-10 ml per aerobic bottle or 5-7 ml per anaerobic bottle, which is the manufacturers recommended volume, may adversely affect the recovery and/or detection of organisms. Normal [facility] Comment on above: Performed By: #### C _BLO #### [facility] [address] [place] [address] Cult Blood Test performed at [facility] No growth The blood cultures are under-filled. Adding volumes lower or higher than 8-10 ml per aerobic bottle or 5-7 ml per anaerobic bottle, which is the manufacturers recommended volume, may adversely affect the recovery and/or detection of organisms. Normal [facility] Comment on above: Performed By: #### C _BLO #### [place] [address] Cult and Smr Aerobicon 12-16 Cult and Smr Aerobic Test performed at [facility] Many Mixed alem including both gram negative and gram positive organisms. No further identification or susceptibility to follow. Plates will be held for 5 days. Many Mixed alem Few WBC Normal [facility] Comment on above: Performed By: #### C _AER #### [place] [address] Cult and Smr Body Fluidon Cult and Smr Body Fluid Test performed at [facility] Normal [facility] Hemogram/Diffon 12-16-2017 Abs. Baso 0.01 thou/cmm Normal 0.00-0.08 [facility] Comment on above: Performed By: #### L CBCD #### [place] [address] Abs. Loving 0.64 thou/cmm Normal 0.20-1.00 [facility] Comment on above: Performed By: #### L CBCD #### [place] [address] Abs. Neut (ANC) 3.73 thou/cmm Normal 3.00-5.67 [facility] Comment on above: Performed By: #### L CBCD #### [place] [address] Basophils/100 WBC (Bld) 0.2 % Normal [facility] Comment on above: Performed By: #### L CBCD #### [place] [address] Eosinophils (Bld) [#/Vol] 0.12 thou/cmm Normal 0.00-0.41 [facility] Comment on above: Performed By: #### L CBCD #### [facility] [address] [place], [place] [address] Eosinophils/100 WBC (Bld) 2.2 % Normal [facility] Comment on above: Performed By: #### L CBCD #### [facility] [address] [place] [address] Erythrocyte distribution width (RBC) [Ratio] 12.4 % Normal 11.5-15.9 [facility] Comment on above: Performed By: #### L CBCD #### [facility] [address] [place] [address] Hematocrit (Bld) [Volume fraction] 35.1 % Low 42.0-52.0 [facility] Comment on above: Performed By: #### L CBCD #### [facility] [address] [place] [address] Hemoglobin (Bld) [Mass/Vol] 10.8 g/dL Low 14.0-18.0 [facility] Comment on above: Performed By: #### L CBCD #### [place] [address] Lymphocytes (Bld) [#/Vol] 1.10 thou/cmm Low 1.50-3.65 [facility] Comment on above: Performed By: #### L CBCD #### [facility] [address] [place] [address] Lymphocytes/100 WBC (Bld) 19.6 % Normal [facility] Comment on above: Performed By: #### L CBCD #### [facility] [address] [place] [address] MCH (RBC) [Entitic mass] 29.8 pg Normal 27.0-31.0 [facility] Comment on above: Performed By: #### L CBCD #### [place] [address] MCHC (RBC) [Mass/Vol] 30.8 % Low 32.0-36.0 [facility] Comment on above: Performed By: #### L CBCD #### [facility] [address] [place] [address] MCV (RBC) [Entitic vol] 96.7 fL High 80.0-94.0 [facility] Comment on above: Performed By: #### L CBCD #### [place] [address] Monocytes/100 WBC (Bld) 11.5 % Normal [facility] Comment on above: Performed By: #### L CBCD #### [facility] [address] [place] [address] Platelet mean volume (Bld) [Entitic vol] 9.9 fL Normal 7.1-10.5 [facility] Comment on above: Performed By: #### L CBCD #### [place] [address] Platelets (Bld) [#/Vol] 217 thou/cmm Normal 150-400 [facility] Comment on above: Performed By: #### L CBCD #### [place] [address] RBC (Bld) [#/Vol] 3.63 mil/cmm Low 4.60-6.20 [facility] Comment on above: Performed By: #### L CBCD #### [place] [address] Seg Neutrophil 66.5 % Normal [facility] Comment on above: Performed By: #### L CBCD #### [place] [address] WBC (Bld) [#/Vol] 5.6 thou/cmm Normal 4.8-10.8 [facility] Comment on above: Performed By: #### L CBCD #### [facility] [address] [place] [address] MDRD eGFRon 12-16-2017 GFR/1.73 sq M predicted among non-blacks MDRD (S/P/Bld) [Vol rate/Area] mL/min/{1.73_m2} Normal >60mL/min/1.73 m2 [facility] Comment on above: Result Comment: If t he patient is , multiply the result by 1.210. Performed By: #### L GFR #### [facility] [address] [place], [place] [address] Protimeon 12-16-2017 INR Coag (PPP) [Relative time] 0.99 {INR} Normal [facility] Comment on above: Result Comment: Francisco dard Therapy 2.0-3.0 High Dose 2.5-3.5 Performed By: #### L PT #### [facility] [address] [place], [place] [address] PT Coag (PPP) [Time] 10.3 s Normal 9.7-13.0 [facility] Comment on above: Result Comment: Note new reference range. Performed By: #### L PT #### [facility] [address] [place], [place] [address] TIBIA FIBULA 2V AP/LAT RIGHT on 12-16-2017 TIBIA FIBULA 2V AP/LAT RIGHT Performed at [facility] APPROVED BY: Theo Quinones MD EXAM TITLE: TIBIA FIBULA 2V AP/LAT RIGHT DATE: 12/16/2017 15:29 COMPARISON: None. CLINICAL INDICATION/HISTORY: Right leg pain and erythema. History of surgery in October of this year TECHNIQUE: AP and lateral views of the right tibia and fibula FINDINGS: The distal portion of a right femoral IM augustus is present with 2 distal locking screws. [...] the anterior cortex of the proximal tibia. Normal [facility] Vital Signs Date Time Vital Sign Value Performing Clinician Faci lity 03-08-2024 11:16-0500 Body mass index (BMI) [Ratio] 30.14 kg/m2 Sam Pichardo MD Work Phone: [facility] 03-08-2024 11:16-0500 Body temperature 97.59 [degF] Sam Pichardo MD Work Phone: [facility] 03-08-2024 11:16-0500 Body weight 89.9 kg Sam Pichardo MD Work Phone: [facility] 03-08-2024 11:16-0500 Diastolic blood pressure 73 mm[Hg] Sam Pichardo MD Work Phone: [facility] 03-08-2024 11:16-0500 Heart rate 74 /min Sam Pichardo MD Work Phone: [facility] 03-08-2024 11:16-0500 SaO2% (BldA) [Mass fraction] 99 % Sam Pichardo MD Work Phone: [facility] 03-08-2024 11:16-0500 Systolic blood pressure 149 mm[Hg] Sam Pichardo MD Work Phone: [facility] 03-10-2023 11:09-0500 Body height 172.7 cm Sam Pichardo MD Work Phone: [facility] 03-10-2023 11:09-0500 Body temperature 97.59 [degF] Sam Pichardo MD Work Phone: [facility] 03-10-2023 11:09-0500 Body weight 91.63 kg Sam Pichardo MD Work Phone: [facility] 03-10-2023 11:09-0500 Diastolic blood pressure 72 mm[Hg] Sam Pichardo MD Work Phone: [facility] 03-10-2023 11:09-0500 Heart rate 66 /min Sam Pichardo MD Work Phone: [facility] 03-10-2023 11:09-0500 SaO2% (BldA) [Mass fraction] 99 % Sam Pichardo MD Work Phone: [facility] 03-10-2023 11:09-0500 Systolic blood pressure 136 mm[Hg] Sam Pichardo MD Work Phone: [facility] 02-13-2023 13:30-0400 Body height 172.7 cm Sam Pichardo MD Work Phone: [facility] 02-13-2023 13:30-0400 Body weight 92.35 kg Sam Pichardo MD Work Phone: [facility] 02-13-2023 13:30-0400 Diastolic blood pressure 97 mm[Hg] Sam Pichardo MD Work Phone: [facility] 02-13-2023 13:30-0400 Heart rate 67 /min Sam Pichardo MD Work Phone: [facility] 02-13-2023 13:30-0400 SaO2% (BldA) [Mass fraction] 97 % Sam Pichardo MD Work Phone: [facility] 02-13-2023 13:30-0400 Systolic blood pressure 166 mm[Hg] Sam Pichardo MD Work Phone: [facility] 09-02-2022 09:57-0400 Body temperature 97.59 [degF] Sam Pichardo MD Work Phone: [facility] 09-02-2022 09:57-0400 Body weight 86.55 kg Sam Pichardo MD Work Phone: [facility] 09-02-2022 09:57-0400 Diastolic blood pressure 89 mm[Hg] Sam Pichardo MD Work Phone: [facility] 09-02-2022 09:57-0400 Heart rate 79 /min Sam Pichardo MD Work Phone: [facility] 09-02-2022 09:57-0400 SaO2% (BldA) [Mass fraction] 98 % Sam Pichardo MD Work Phone: [facility] 09-02-2022 09:57-0400 Systolic blood pressure 147 mm[Hg] Sam Pichardo MD Work Phone: [facility] 07-23-2022 14:56-0400 Body height 175.3 cm Pacc 2 Work Phone: [facility] 07-23-2022 14:56-0400 Body temperature 98.1 [degF] Pacc 2 Work Phone: [facility] 07-23-2022 14:56-0400 Body weight 86.64 kg Pacc 2 Work Phone: [facility] 07-23-2022 14:56-0400 Diastolic blood pressure 70 mm[Hg] Pacc 2 Work Phone: [facility] 07-23-2022 14:56-0400 Heart rate 88 /min Pacc 2 Work Phone: [facility] 07-23-2022 14:56-0400 Respiratory rate 18 /min Pacc 2 Work Phone: [facility] 07-23-2022 14:56-0400 SaO2% (BldA) [Mass fraction] 96 % Pacc 2 Work Phone: [facility] 07-23-2022 14:56-0400 Systolic blood pressure 112 mm[Hg] Pacc 2 Work Phone: [facility] 07-18-2022 08:03-0400 Body height 175.3 cm Sam Pichardo MD Work Phone: [facility] 07-18-2022 08:03-0400 Body weight 87.09 kg Sam Pichardo MD Work Phone: [facility] 07-18-2022 08:03-0400 Diastolic blood pressure 75 mm[Hg] Sam Pichardo MD Work Phone: [facility] 07-18-2022 08:03-0400 Heart rate 88 /min Sam Pichardo MD Work Phone: [facility] 07-18-2022 08:03-0400 SaO2% (BldA) [Mass fraction] 99 % Sam Pichardo MD Work Phone: [facility] 07-18-2022 08:03-0400 Systolic blood pressure 142 mm[Hg] Sam Pichardo MD Work Phone: [facility] Encounters Encounter Date Encounter Type Care Provider Facility Start: 05-03-2024 End: 05-03-2024 Telephone encounter Sam Pichardo MD Work Phone: Neurology Comment on above: Results Start: 04-28-2024 ambulatory SAM PICHARDO Facility:[facility] 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] Start: 04-13-2023 End: 04-13-2023 ambulatory JOÃO MICHAEL Facility:[facility] Start: 04-09-2023 End: 04-09-2023 ambulatory JOÃO MICHAEL Facility:[facility] Start: 04-06-2023 End: 04-06-2023 ambulatory JOÃO MICHAEL Facility:[facility] Start: 03-10-2023 End: 03-10-2023 Patient encounter procedure Sam Pichardo MD Work Phone: Neurosurgery Comment on above: Acute pain of left s houlder (Primary Dx); Intradural extramedullary spinal tumor Start: 02-25-2023 End: 02-25-2023 Subsequent hospital visit by physician [facility] (1.5t) [facility] Comment on above: Neck pain [M54.2] Start: 02-17-2023 Refill Sam Pichardo MD Work Phone: Neurology Start: 02-13-2023 End: 02-13-2023 Patient encounter procedure Sam Pichardo MD Work Phone: Neurosurgery Comment on above: Intradural tumor (Pr imary Dx) Start: 01-06-2023 End: 01-06-2023 ambulatory Genoveva Marte PT Work Phone: [facility] Comment on above: Left arm weakness (P rimary Dx); Pain in joint of left shoulder; Intradural extramedullary spinal tumor Start: 12-24-2022 Telephone encounter Martir mahajan MD Work Phone: Neurology Comment on above: Patient Question Start: 12-23-2022 End: 12-23-2022 ambulatory Genoveva Marte PT Work Phone: [facility] Comment on above: Left arm weakness (P rimary Dx); Pain in joint of left shoulder Start: 12-16-2022 End: 12-16-2022 ambulatory Ross Ram GUE[employer] SPECIALIST Work Phone: [facility] Comment on above: Left arm weakness (P rimary Dx) Start: 12-09-2022 End: 12-10-2022 ambulatory Genoveva Marte PT Work Phone: [facility] Comment on above: Left arm weakness (P rimary Dx); Intradural extramedullary spinal tumor Start: 12-02-2022 End: 12-02-2022 ambulatory Ross Yo GUEST SPECIALIST Work Phone: [facility] Comment on above: Left arm weakness (P rimary Dx) Start: 11-25-2022 End: 11-25-2022 ambulatory Genoveva Rosanna PT Work Phone: [facility] Comment on above: Intradural extramedu llary spinal tumor (Primary Dx); Left arm weakness; Muscle weakness (generalized) Start: 11-11-2022 End: 11-11-2022 ambulatory Elodia Fuller PT, DPT [facility] Comment on above: Intradural tumor (Pr imary Dx); Intradural extramedullary spinal tumor; Difficulty walking; Muscle weakness (generalized) Start: 10-21-2022 Refill Sam Pichardo MD Work Phone: Neurology Comment on above: Refill Request Start: 10-20-2022 End: 10-20-2022 ambulatory Chidi Quiñones PT Work Phone: [facility] Comment on above: Intradural tumor (Pr imary Dx); Muscle weakness (generalized) Start: 10-15-2022 End: 10-15-2022 ambulatory Ross Yo GUE[employer] SPECIALIST Work Phone: [facility] Comment on above: Intradural extramedu llary spinal tumor (Primary Dx); Muscle weakness (generalized) Start: 10-13-2022 End: 10-13-2022 ambulatory Chidi Quiñones PT Work Phone: [facility] Comment on above: Intradural extramedu llary spinal tumor (Primary Dx); Muscle weakness (generalized) Start: 10-10-2022 End: 10-10-2022 ambulatory Chidi Quiñones PT Work Phone: [facility] Comment on above: Intradural tumor (Pr imary Dx); Muscle weakness (generalized) Start: 10-09-2022 Telephone encounter Migel Pichardo MD Work Phone: Neurology Comment on above: Post Op Question Start: 10-06-2022 End: 10-06-2022 ambulatory Chidi Quiñones PT Work Phone: [facility] Comment on above: Intradural extramedu llary spinal tumor (Primary Dx); Muscle weakness (generalized) Start: 10-01-2022 End: 10-01-2022 ambulatory Ross Ram GUE[employer] SPECIALIST Work Phone: [facility] Comment on above: Intradural tumor (Pr imary Dx); Muscle weakness (generalized); Difficulty walking Start: 09-29-2022 End: 09-29-2022 ambulatory Chidi Quiñones PT Work Phone: [facility] Comment on above: Intradural tumor (Pr imary Dx); Muscle weakness (generalized) Start: 09-25-2022 End: 09-25-2022 ambulatory Ross Ram GUE[employer] SPECIALIST Work Phone: [facility] Comment on above: Intradural tumor (Pr imary Dx); Muscle weakness (generalized) Start: 09-02-2022 End: 09-02-2022 Patient encounter procedure Sam Pichardo MD Work Phone: Neurosurgery Comment on above: Intradural extramedu llary spinal tumor (Primary Dx) Start: 08-26-2022 Admission to [facility] Haylee Gay PA-C Work Phone: Neurosurgery Comment on above: H/O cervical spine s urgery (Primary Dx); Intradural tumor Start: 08-19-2022 End: 08-19-2022 ambulatory JOÃO MICHAEL Facility:[facility] Start: 08-01-2022 End: 08-01-2022 Subsequent hospital visit by physician [facility] (1.5t) [facility] Comment on above: Intradural extramedu llary spinal tumor [D49.7] Start: 07-23-2022 Encounter for other preprocedural examination JOÃO MICHAEL [facility] Start: 07-23-2022 End: 07-23-2022 Admission to [place] [id number] Work Phone: [facility] Start: 07-23-2022 End: 07-24-2022 ambulatory [place] [address] Work Phone: Pre Anesthesia Comment on above: Preoperative examina tion (Primary Dx); Pre-op evaluation; Former smoker; Excessive drinking of alcohol Start: 07-23-2022 End: 07-23-2022 Preprocedural examination done [place] [id number] Work Phone: Pre Anesthesia Start: 07-18-2022 ambulatory Sam Pichardo MD Work Phone: Neurosurgery Start: 07-18-2022 Preprocedural examin ation done Sam Pichardo MD Work Phone: Neurosurgery Start: 07-18-2022 End: 07-18-2022 Patient encounter procedure Sam Pichardo MD Work Phone: Neurosurgery Comment on above: Intradural extramedu llary spinal tumor (Primary Dx); Localized swelling, mass or lump of neck Start: 07-11-2022 Telephone encounter João domingo APRN.CNP Work Phone: [facility] [place] Comment on above: Orders Start: 07-04-2022 End: 07-07-2022 ambulatory UNKNOWN PROVIDER Facility:[facility] Procedures Date Procedure Procedure Detail Performing Clinician Start: 02-25-2023 Radex shoulder compl ete minimum 2 views Sam Pichardo MD Work Phone: Start: 02-25-2023 Mri spinal canal cer vical w/o & w/contr ayesha Pichardo MD Work Phone: Start: 08-01-2022 Mri spinal canal cer vical w/o & w/contr ayesha Pichardo MD Work Phone: Start: 07-23-2022 End: 07-23-2022 Antibody screen Pac 2 Work Phone: Comment on above: Order Comment: Speci men Type: BLOOD SPECIMEN Ordering Facility: [facility] Address: [place] [address] Performed By: #### T [id number] #### [facility] [id number] [address] [place] [address] [facility] Start: 12-13-2015 Lipid 1996 panel - S jovanni or Plasma Genoveva Marte PT Work Phone: Plan of Treatment Date Care Activity Detail Author Start: 2034 RSV Vaccine (1 - 1-d ose 75+ series) RSV Vaccine (1 - 1-dose 75+ series) [facility] Start: 07-23-2025 DIABETES SCREEN DIABETES SCREEN [facility] Start: 07-23-2025 Diabetes Screening Diabetes Screenin g [facility] Start: 04-27-2024 Advance Directive Discussion Advance Directive Discussion [facility] Start: 03-25-2024 End: 03-25-2024 Patient encounter procedure 03/25/2024 12:45 PM EST Appointment [facility] [address] [place] [id number] MRI CERVICAL SPINE WO/W IVCON [facility] Comment on above: MRI CERVICAL SPINE W O/W IVCON Start: 03-08-2024 End: 03-08-2024 Patient encounter procedure 03/08/2024 11:40 AM EST Office Visit Neurosurgery [id number] [place] [address] [place] [id number] [place] [address] Follow Up Neurosurgery Comment on above: Follow Up Start: 01-03-2024 Advance Directive Discussion Advance Directive Discussion [facility] Start: 01-03-2024 Pneumococcal Vaccine : 65+ (1 of 1 - PCV) Pneumococcal Vaccine: 65+ (1 of 1 - PCV) [facility] Start: 12-27-2023 Covid-19 Vaccine (2023- season) Covid-19 Vaccine ( season) [facility] [facility] 12[facility]27[facility]2023 Influenza vaccination C [facility] Start: 04-27-2023 Behavioral Health Screening Behavioral Health Screening [facility] Start: 02-06-2023 Screening for malign ant neoplasm of colon [facility] Start: 12-26-2022 Covid-19 Vaccine ( season) Covid-19 Vaccine () [facility] Start: 12-26-2022 Influenza vaccination C [facility] Start: 04-27-2022 DEPRESSION ASSESSMENT DEPRESSION ASS ESSMENT [facility] Start: 12-26-2021 Influenza vaccination INFLUENZA (#1) [facility] Start: 12-13-2021 DIABETES SCREEN DIABETES SCREEN [facility] Start: 12-12-2020 Lipid 1996 panel - Serum or Plasma Lipid Screening [facility] Start: 12-12-2020 Lipid panel Lipid Screening [facility] Start: 12-12-2020 LIPID SCREEN LIPID SCREEN [facility] Start: 11-12-2020 COVID-19 VACCINE (3 - Booster for Moderna series) COVID-19 VACCINE (3 - Booster for Moderna series) [facility] Start: 11-12-2020 COVID-19 VACCINE (3 - Moderna series) COVID-19 VACCINE (3 - Moderna series) [facility] Start: 2019 RSV Vaccine (1 - 1-d ose 60+ series) RSV Vaccine (1 - 1-dose 60+ series) [facility] Start: 11-15-2018 Influenza vaccination LUNG CANCER SC REENING [facility] Start: 11-15-2018 Screening for malign ant neoplasm of lung Lung Cancer Screening [facility] Start: 07-08-2017 PROSTATE CANCER SCREENING DISCUSSION PROSTATE CANCER SCREENING DISCUSSION [facility] Start: 07-08-2017 Prostate specific antigen measurement Prostate Cancer Screening Discussion [facility] Start: 2009 Pneumococcal Vaccine : 50+ (1 of 1 - PCV) Pneumococcal Vaccine: 50+ (1 of 1 - PCV) [facility] Start: 2009 SHINGRIX VACCINE (1 of 2) SHINGRIX VACCINE (1 of 2) [facility] Start: 01-03-2004 COLOGUARD (FIT-DNA) COLOGUARD (FIT-D NA) [facility] Start: 01-03-2004 Colonoscopy COLONOSCOPY [facility] Start: 01-03-2004 COLORECTAL CANCER SCREENING COLORECTAL CANCER SCREENING [facility] Start: 01-03-[address] COLONOGRAPHY [facility] Start: 01-03-2004 FECAL OCCULT BLOOD FECAL OCCULT BLOO D [facility] Start: 01-03-2004 Screening for malign ant neoplasm of colon [facility] Start: 01-03-2004 SIGMOIDOSCOPY SIGMOIDOSCOPY [facility] Start: 1978 Urine microalbumin profile [facility] Start: 1977 Anxiety Screening Anxiety Screening [facility] Start: 1977 Depression Screening Depression Scre ening [facility] Start: 1977 HEPATITIS C SCREENING HEPATITIS C SC [facility] Start: 1977 Hepatitis C screening Hepatitis C Sc [facility] Start: 1977 HIV SCREENING HIV SCREENING [facility] Start: 1977 HIV screening HIV Screening [facility] Start: 1959 COVID-19 VACCINE (#1) COVID-19 VACCI NE (#1) [facility] Start: 1959 Abdominal aortic aneurysm screening Abdominal Aortic Aneurysm Screening [facility] End: 08-17-2023 CTA HEAD W IVCON CTA HEAD W IVCON Radiology Routine Localized swelling, mass or lump of neck 1 Occurrences starting 07/18/2022 until 08/17/2023 [facility] Work Phone: Comment on above: 1 Occurrences starti ng 07/18/2022 until 08/17/2023 End: 08-17-2023 CTA NECK W IVCON CTA NECK W IVCON Radiology Routine Intradural extramedullary spinal tumor Localized swelling, mass or lump of neck 1 Occurrences starting 07/18/2022 until 08/17/2023 [facility] Work Phone: Comment on above: 1 Occurrences starti ng 07/18/2022 until 08/17/2023 End: 07-24-2023 ECG COMPLETE ECG COMPLETE ECG Routine Preoperative examination 1 Occurrences starting 07/23/2022 until 07/24/2023 [facility] Work Phone: Comment on above: 1 Occurrences starti ng 07/23/2022 until 07/24/2023 End: 04-07-2025 MR Cervical spine WO and W contrast IV MRI CERVICAL SPINE WO/W IVCON Radiology Routine Intradural extramedullary spinal tumor 1 Occurrences starting 03/08/2024 until 04/07/2025 [facility] Work Phone: Comment on above: 1 Occurrences starti ng 03/08/2024 until 04/07/2025 MR Cervical spine WO and W contrast IV MRI CERVICAL SPINE WO/W IVCON Radiology Routine Intradural extramedullary spinal tumor 04/28/2024 3:26 PM EST [facility] Work Phone: End: 08-17-2023 Mri spinal canal cervical w/o & w/contr matrl MRI CERVICAL SPINE WO/W IVCON Radiology Routine Intradural extramedullary spinal tumor 1 Occurrences starting 07/18/2022 until 08/17/2023 [facility] Work Phone: Comment on above: 1 Occurrences starti ng 07/18/2022 until 08/17/2023 End: 03-18-2024 Mri spinal canal cervical w/o & w/contr matrl MRI CERVICAL SPINE WO/W IVCON Radiology Routine Neck pain 1 Occurrences starting 02/17/2023 until 03/18/2024 [facility] Work Phone: Comment on above: 1 Occurrences starti ng 02/17/2023 until 03/18/2024 PT PLAN OF CARE CERTIFICATION PT PLAN OF CARE CERTIFICATION Procedures Routine Intradural tumor Intradural extramedullary spinal tumor Difficulty walking Muscle weakness (generalized) Ordered: 11/11/2022 [facility] Comment on above: Ordered: 11/11/2022 End: 03-18-2024 XR SHOULDER LIMITED 2V AP/TRUE AP LEFT XR SHOULDER LIMITED 2V AP/TRUE AP LEFT Radiology Routine Neck pain 1 Occurrences starting 02/17/2023 until 03/18/2024 [facility] Work Phone: Comment on above: 1 Occurrences starti ng 02/17/2023 until 03/18/2024 [facility] Payers Date Payer Category Payer Medicare MEDICARE MEDICAR E A [id number] 2023-Present [phone] [address] [place] [address] Medicare [id number] 2017 Unknown [id number] 2017 [facility] [place] [id number] 1960 Unknown [id number] Social History Date Type Detail Facility Start: 10-07-2018 End: 03-08-2024 Tobacco smoking status KYIS Ex-smoker [facility] Start: 11-16-1977 End: 11-16-2017 History of tobacco use Current smoker [facility] Start: 11-16-1977 End: 11-16-2017 History of tobacco use Cigarette Smoker [facility] Start: 10-07-2018 End: 09-02-2022 Cigarettes smoked current (pack per day) - Reported 1 [facility] Start: 10-07-2018 End: 03-08-2024 Tobacco use and exposure Smokeless tobacco non-user [facility] Start: 01-18-2019 End: 03-08-2024 Alcohol intake Current drinker of alcohol (finding) [facility] Start: 1960 Sex Assigned At Not on file [facility] Start: 07-23-2022 Alcohol Comment 5 beers daily - denies withdrawal symptoms - 07/23/22 [facility] Start: 08-26-2022 History SDOH Financial 5 [facility] Start: 08-26-2022 History SDOH Food Worry 1 [facility] Start: 08-26-2022 History SDOH Transpo rt Med 2 [facility] Start: 08-26-2022 End: 09-02-2022 Tobacco use panel [facility] How hard is it for y ou to pay for the very basics like food, housing, medical care, and heating Not hard at all [facility] (I/We) worried prabha er (my/our) food would run out before (I/we) got money to buy more. Never true [facility] In the past 12 month s, was there a time when you were not able to pay the mortgage or rent on time? No [facility] Medical Equipment Procedure Code Equipment Code Equipment Origin al Text Equipment Identifier Dates Uyf-Nl-F-Kind Implant - [id number] Start: 11-16-2017 Screw 5mm 4.3mm T25 Full Thread Light Green Titanium 56mm Bone Self Tap - [id number] Start: 11-16-2017 Screw 5mm 4.3mm T25 Full Thread Light Green Titanium 40mm Bone Lock Self - [id number] Start: 11-16-2017 Screw 5mm 4.3mm T25 Full Thread Light Green Titanium 42mm Bone Self Tap - [id number] Start: 11-16-2017 Screw 5mm 4.3mm T25 Full Thread Light Green Titanium 50mm Bone Stardrive - [id number] Start: 11-16-2017 Clinical Notes 11-19-2017 to 05-03-2024 Telephone Encounter - Laine Cole - 05/03/2024 11:18 AM ESTTelephone Encounter - Laine Cole - 05/03/2024 11:18 AM ESTSSam bush MD - 03/08/2024 11:17 AM ESTPatient Instructions Note Date & Type Note Facility 05-03-2024 Telephone encounter Note [facility] MRI cervical spine wo/w ivcon report scanned to [facility] 05-03-2024 Miscellaneous Notes [facility] MRI cervical spine wo/w ivcon report scanned to [facility] documented in this encounter [facility] 03-08-2024 Note HNO ID: [id number] Author: SAM PICHARDO MD Service: ? Author Type: Physician Type: Progress Notes Filed: 03/08/2024 11:31 Note Text: 03/02/2024 PROMIS Global Health Physical Health Summary Physical health: Good Everyday physical activity, ability: Mostly Fatigue: Mild Pain level: 3 General health: Good Social activities/roles, ability: Good Physical Health T-Score 47.7 (Good) Physical Health Percentile 41 PROMIS Global Health Mental Health Summary Quality of life: Good Mental health (mood,thinking): Very good Social satisfaction: Very good Emotional problems (anxious,depressed): Never Mental Health T-Score 53.3 (Very Good) Mental Health Percentile 63 Percentiles provide an indication of how a patient's score ranks in relation to the [place] general population. > 31st percentile is within normal limits or better *< 31st percentile is at least ? SD worse than population, which may be clinically relevant < 16th percentile is at least 1 SD worse than population and warrants attention SPINE SURGERY FOLLOW UP This is an in-person visit. SERVICE DATE: 03/08/2024 SURGERY DATE: 08/22/2022 Adeel Muller is a pleasant 64-year-old gentleman is here in spine surgery clinic for 1.6 years post operative follow up. He underwent suboccipital craniectomy, C1 laminectomy , Gross total excision of intradural extra medullary tumor on 08/22/2022. 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 Pre-operatively, he complained of stiffness int he left leg with difficulty ambulating. 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 He was last evaluated in office on 03/10/2023. His shoulder is slowly improving. He periodically has pain in the bilateral trapezius muscles, his right knee and his feet bilaterally. He had pain with range of motion of the left shoulder. He has been doing front shoulder raises and lateral raises against gravity. He states he gets through approximately eight repetitions before he has pain in the shoulder. Today he is doing very well except mild left hand numbness. His shoulder weakness is completely improved. Denies neck or arm pain. Denies walking difficulty/imbalance. ANTIPLATELET OR ANTICOAGULATION STATUS: Aspirin Patient Entered Questionnaires 01/28/2023 02/07/2023 03/04/2023 Spine Questions Pain Location: Arm Arm Arm Pain Duration: 1 to 5 years 1 to 5 years Pain over last 6 months: Every day or nearly every day in the past 6 months Every day or nearly every day in the past 6 months Symptoms from neck/cervical spine: Yes Yes Yes Employment Status: Working now Working now 08/27/2022 01/28/2023 02/07/2023 Neck Questionnaires Benzel Modified BO Score 13 (Moderate Myelopathy Symptoms) 15 (Mild Myelopathy Symptoms) 15 (Mild Myelopathy Symptoms) PROMIS Score Percentiles 01/28/2023 03/04/2023 04/03/2023 Physical Health Physical Function Percentile 18* 18* 16* Sleep Percentile 34 38 Fatigue Percentile 18* 46 Pain Interference Percentile 18* 18* 08/27/2022 01/28/2023 03/04/2023 PROMIS SOCIAL ROLE SCORE Social Role Satisfaction Percentile 8 21* 16* 04/03/2023 04/10/2023 03/02/2024 PROMIS Global Health Scale Physical Health Percentile 22* 22* 41 Mental Health Percentile 63 43 63 Percentiles provide an indication of how the patient's score ranks in relation to the general population. Higher percentile rankings indicate better function/quality of life. 50th percentile is the average of the general population and indicates half of respondents had a worse score. Depression Screenin01/28/2023 02/07/2023 03/04/2023 PHQ-9 Score 2 2 2 2 Multiple values from one day are sorted in reverse-chronological order 01/28/2023 02/07/2023 03/04/2023 PHQ-9 Self-harm Question Question 9 Not at all Not at all Not at all PHQ-9 Self-Harm (Item 9) response options: 0 Not at all 1 Several days 2 More than half the days 3 Nearly every day PHQ-9 Levels: 0-4 No to mild depression 5-9 Mild depression 10-14 Moderate depression 15-19 Moderately severe depression 20-27 Severe depression PHYSICAL EXAM: There were no vitals taken for this visit. GENERAL APPEARANCE: Well nourished, well developed, and no apparent distress. NEURO PSYCH: Patient oriented to person, place, and time. Mood pleasant. Benign affect. MUSCULOSKELETAL VISUAL INSPECTION CERVICAL: Posterior cervical scar is healthy THORACIC: WNL LUMBAR: WNL MOTOR: 5/5 in all muscle groups. SENSORY: Normal sensory exam GAIT: Normal. REFLEXES: +2 to bilateral U/L extremities. PROPRIOCEPTION: Normal. LONG TRACT SIGNS: No clonus. No Hoffmans. STRAIGHT LEG TEST: Ipsilateral: Negative. Contralateral: Negative. L'HERMITTES SIGN: Negative. SPURLING'S TEST: Not tested. DATA REVIEW [facility] records independently reviewed Images independently reviewed with the patient DATE OF EXAM: Feb 25 2023 9:22AM LDM 0298 - MRI CERVICAL SPINE WO/W IVCON / ACCESSION (more content not included)... [facility] 03-08-2024 History of Presen t illness Narrative Images from the original note were not included. 03/02/2024 PROMIS Global Health Physical Health Summary Physical health: Good Everyday physical activity, ability: Mostly Fatigue: Mild Pain level: 3 General health: Good Social activities/roles, ability: Good Physical Health T-Score 47.7 (Good) Physical Health Percentile 41 PROMIS Global Health Mental Health Summary Quality of life: Good Mental health (mood,thinking): Very good Social satisfaction: Very good Emotional problems (anxious,depressed): Never Mental Health T-Score 53.3 (Very Good) Mental Health Percentile 63 Percentiles provide an indication of how a patient's score ranks in relation to the [place] general population. > 31st percentile is within normal limits or better *< 31st percentile is at least SD worse than population, which may be clinically relevant < 16th percentile is at least 1 SD worse than population and warrants attention SPINE SURGERY FOLLOW UP This is an in-person visit. SERVICE DATE: 03/08/2024 SURGERY DATE: 08/22/2022 Adeel Muller is a pleasant 64-year-old gentleman is here in spine surgery clinic for 1.6 years post operative follow up. He underwent suboccipital craniectomy, C1 laminectomy , Gross total excision of intradural extra medullary tumor on 08/22/2022. 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 Pre-operatively, he complained of stiffness int he left leg with difficulty ambulating. 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 He was last evaluated in office on 03/10/2023. His shoulder is slowly improving. He periodically has pain in the bilateral trapezius muscles, his right knee and his feet bilaterally. He had pain with range of motion of the left shoulder. He has been doing front shoulder raises and lateral raises against gravity. He states he gets through approximately eight repetitions before he has pain in the shoulder. Today he is doing very well except mild left hand numbness. His shoulder weakness is completely improved. Denies neck or arm pain. Denies walking difficulty/imbalance. ANTIPLATELET OR ANTICOAGULATION STATUS: Aspirin Patient Entered Questionnaires 01/28/2023 02/07/2023 03/04/2023 Spine Questions Pain Location: Arm Arm Arm Pain Duration: 1 to 5 years 1 to 5 years Pain over last 6 months: Every day or nearly every day in the past 6 months Every day or nearly every day in the past 6 months Symptoms from neck/cervical spine: Yes Yes Yes Employment Status: Working now Working now 08/27/2022 01/28/2023 02/07/2023 Neck Questionnaires Benzel Modified BO Score 13 (Moderate Myelopathy Symptoms) 15 (Mild Myelopathy Symptoms) 15 (Mild Myelopathy Symptoms) PROMIS Score Percentiles 01/28/2023 03/04/2023 04/03/2023 Physical Health Physical Function Percentile 18* 18* 16* Sleep Percentile 34 38 Fatigue Percentile 18* 46 Pain Interference Percentile 18* 18* 08/27/2022 01/28/2023 03/04/2023 PROMIS SOCIAL ROLE SCORE Social Role Satisfaction Percentile 8 21* 16* 04/03/2023 04/10/2023 03/02/2024 PROMIS Global Health Scale Physical Health Percentile 22* 22* 41 Mental Health Percentile 63 43 63 Percentiles provide an indication of how the patient's score ranks in relation to the general population. Higher percentile rankings indicate better function/quality of life. 50th percentile is the average of the general population and indicates half of respondents had a worse score. Depression Screenin01/28/2023 02/07/2023 03/04/2023 PHQ-9 Score 2 2 2 2 Multiple values from one day are sorted in reverse-chronological order 01/28/2023 02/07/2023 03/04/2023 PHQ-9 Self-harm Question Question 9 Not at all Not at all Not at all PHQ-9 Self-Harm (Item 9) response options: 0 Not at all 1 Several days 2 More than half the days 3 Nearly every day PHQ-9 Levels: 0-4 No to mild depression 5-9 Mild depression 10-14 Moderate depression 15-19 Moderately severe depression 20-27 Severe depression PHYSICAL EXAM: There were no vitals taken for this visit. GENERAL APPEARANCE: Well nourished, well developed, and no apparent distress. NEURO PSYCH: Patient oriented to person, place, and time. Mood pleasant. Benign affect. MUSCULOSKELETAL VISUAL INSPECTION CERVICAL: Posterior cervical scar is healthy THORACIC: WNL LUMBAR: WNL MOTOR: 5/5 in all muscle groups. SENSORY: Normal sensory exam GAIT: Normal. REFLEXES: +2 to bilateral U/L extremities. PROPRIOCEPTION: Normal. LONG TRACT SIGNS: No clonus. No Hoffmans. STRAIGHT LEG TEST: Ipsilateral: Negative. Contralateral: Negative. L'HERMITTES SIGN: Negative. SPURLING'S TEST: Not tested. DATA REVIEW [facility] records independently reviewed Images independently reviewed with the patient DATE OF EXAM: Feb 25 2023 9:22AM LDM 0298 - MRI CERVICAL SPINE WO/W IVCON / PROCEDURE REASON: Neck pain * * * * Physician Interpretation * * * * EXAMINATION: MRI CERVICAL SPINE WO/W IVCON CLINICAL HISTORY: Neck pain. History of upper cervical mass resection. TECHNIQUE: Routine cervical spine MR protocol without and with intravenous gadolinium. MQ: [id number] MR Contrast: Dotarem MR Contrast Volume (ml): 19 MR Contrast Route of Administration: IV COMPARISON: 08/24/2022 RESULT: Counting reference: Craniocervical junction. Anatomic Variants: None. Localizer images: No additional findings. Alignment: Alignment is anatomic. Craniocervical junction: Again noted are changes of suboccipital craniectomy and posterior arch of C1 resection for resection of an extra medullary intradural tumor at C1-2 level. Cord: Interval resolution of cord edema at C1-2 level with resolution of cord expansion at this level. Trace intramedullary hyperintensity seen posterior laterally to the left within the cord at C1 level suggesting myelomalacia. There appears to be posterior displacement of the cord at C1-2 level likely secondary to adhesion to the dura posteriorly to the left as seen on axial series 7 images 9-11. Postsurgical changes in the adjacent paraspinal soft tissues and dural. No definite residual mass or enhancement identified at the surgical field. Postsurgical dural enhancement is seen at C1 posterior laterally to the left, no significant thecal sac effacement. Remaining cord demonstrates normal morphology and signal intensity. Bone marrow signal/fracture: No evidence of pathologic marrow infiltration. No evidence of prior fracture. Cervical soft tissues: Postsurgical changes in the paraspinal soft tissues at C1-2 with interval resolution of postoperative fluid. C2-C3: Canal and foramina are patent. C3-C4: Facet hypertrophy with mild left foraminal stenosis. Right neural foramen and spinal canal are patent. C4-C5: Canal and foramina are patent. C5-C6: Facet pronounced hypertrophy with mild bilateral foraminal stenosis. Disc/osteophyte complex bulge with partial effacement of the thecal sac anteriorly. No cord abutment. C6-C7: Facet hypertrophy with mild left foraminal stenosis. Spinal canal is patent. C7-T1: Facet hypertrophy with mild bilateral foraminal stenosis. Disc/osteophyte complex bulge with partial effacement of the thecal sac anteriorly. DATE OF EXAM: Sep 03 2023 6:36PM LDX [id number] - XR LUMBAR 3V AP/LAT/L5-S1 / PROCEDURE REASON: back pain with radiculopathy to feet * * * * Physician Interpretation * * * * EXAM: LUMBAR SPINE, 3 VIEWS CLINICAL: 63-year-old male with back pain TECHNIQUE: AP, lateral coned down lateral COMPARISON: 08/31/2007 RESULTS: Counting reference: Anatomic Variant: None. L4-5 is considered the level of the iliac crest and assume there are 5 lumbar-type vertebrae. Mild dextroscoliosis centered at L2/L3. Mild to moderate disc space narrowing at L1/L2 through L3/L4. Osteophytes throughout the lumbar spine. Facet narrowing at L4/L5 and L5/S1. ASSESSMENT/PLAN Adeel Muller is a pleasant 64-year-old gentleman is here in spine surgery clinic for 1.6 years post operative follow up. He underwent suboccipital craniectomy, C1 laminectomy , Gross total excision of intradural extra medullary tumor on 08/22/2022. 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 Pre-operatively, he complained of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 measure: Medication;Exercise;Positioning Medication;Exercise;Positioning -- REVIEW OF SYSTEMS: GENERAL: No weight loss or malaise MUSCULOSKELETAL: Negative for joint pain, swelling or muscle pain NEURO: No history of headaches, syncope, paralysis, seizures or tremors MEDICATIONS: gabapentin (NEURONTIN) 300 mg capsule Take 1 capsule by mouth three times daily for 90 days. ibuprofen (MOTRIN) 200 mg tablet Take 600 mg by mouth every 8 hours as needed for Pain. aspirin, enteric coated (ASPIRIN, ENTERIC COATED) 81 mg EC tablet Take 81 mg by mouth once daily. NaCl 0.9% (NORMAL SALINE FLUSH) Inject 10 mL intravenously as needed (to maintain patency). flush before and after antibiotic and daily. Flush with 10ml after lab draws. Patient Entered Questionnaires Spine Questions 08/27/2022 01/28/2023 02/07/2023 Pain Location: Neck Arm Arm Pain Duration: - 1 to 5 years 1 to 5 years Pain over last 6 months: - Every day or nearly every day in the past 6 months Every day or nearly every day in the past 6 months Symptoms from neck/cervical spine: Yes Yes Yes Employment Status: - Working now Working now Involved in law suit/legal claim: - - - Neck Questionnaires 08/27/2022 01/28/2023 02/07/2023 Benzel Modified BO Score 13 (A lower score indicates increased pain and issues.) 15 (A lower score indicates increased pain and issues.) 15 (A lower score indicates increased pain and issues.) PROMIS Score Percentiles Physical Health 11/15/2022 12/13/2022 01/28/2023 Physical Function Percentile 18* 18* 18* Sleep Percentile - - 34 Fatigue Percentile - - 18* Pain Interference Percentile - - 18* PROMIS SOCIAL ROLE SCORE 07/11/2022 08/27/2022 01/28/2023 Social Role Satisfaction Percentile 14 8 21* PROMIS Global Health Scale 07/11/2022 10/03/2022 12/28/2022 Physical Health Percentile 15 31 15 Mental Health Percentile 34 53 34 Percentiles provide an indication of how the patient's score ranks in relation to the general population. Higher percentile rankings indicate better function/quality of life. 50th percentile is the average of the general population and indicates half of respondents had a worse score. Depression Screening: PHQ-9 01/28/2023 01/28/2023 02/07/2023 Score 2 2 2 PHQ-9 Self-harm Question 01/28/2023 01/28/2023 02/07/2023 Thoughts that you would be better off , or of hurting yourself in some way 0 0 0 PHQ-9 Self-Harm (Item 9) response options: 0 Not at all 1 Several days 2 More than half the days 3 Nearly every day PHQ-9 Levels: 0-4 No to mild depression 5-9 Mild depression 10-14 Moderate depression 15-19 Moderately severe depression 20-27 Severe depression OBJECTIVE: PHYSICAL EXAM: BP 166/97 Pulse 67 Ht 5' 8" (1.73m) Wt 203 lb 9.6 oz (92.4kg) SpO2 97% BMI 30.96 kg/(m^2). GENERAL APPEARANCE: Well nourished, well developed, and no apparent distress. NEURO PSYCH: Patient oriented to person, place, and time. Mood pleasant. Benign affect. MUSCULOSKELETAL VISUAL INSPECTION CERVICAL: WNL THORACIC: WNL LUMBAR: WNL MOTOR: 5/5 in all muscle groups. Except left deltoid with decreased abduction, roughly 90 degrees. SENSORY: Normal sensory exam No clonus No stewart NEURO TESTS: Cranial Nerves: Normal mood and affect. CNII-XII grossly intact. DATA REVIEW:Diagnostic tests reviewed for today's visit, films/specimens were personally reviewed by me: No additional images reviewed today ASSESSMENT/PLAN (D49.7) Intradural tumor (primary encounter diagnosis) Adeel Muller is a 63 year old male presenting with spouse. 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 Pre-operatively he had stiffness in his left leg and trouble walking. 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 Today, he states he is still not having the range of motion in his left shoulder that he is hoping for. He can abduct his left shoulder to about 90 degrees. After that he begins to have pain in left neck and into left shoulder. Examination showed well-healing posterior cervical incision, no signs of infection. Hypertonia in upper and lower extremities. Clonus is present. Discussed clinical, image finding. Showed images and explained detail. MRI cervical spine with and without contrast ordered to rule out recurrence of tumor. Follow-up in spine surgery clinic for completion of imaging The majority of the visit was spent counseling and/or coordinating care for the patient. The patient was counseled regarding neck pain, intradural extramedullary spinal tumor, Meningioma, MRI cervical spine to rule out tumor recurrence, total face to face time was 20 minutes. SIGNATURE: Sam Pichardo MD PATIENT NAME: Adeel Muller DATE: February 13, 2023 TIME: 2:15 PM PAGER: documented in this encounter [facility] 01-06-2023 History of Presen t illness Narrative Episode Visit Count: 21 Therapist That Will Accept/Oversee The Plan Of Care: Chidi Quiñones Start of Care Date: 09/10/22 Onset Date: 08/22/22 Plan of Care Certification Date: (n/a) Next Certification Due Date: (n/a) Current Surgical Procedure : removal of surgical meningioma Current Surgical Procedure Date: 08/22/22 Mechanism of Injury: Insidious Onset REHABILITATION AND SPORTS THERAPY PHYSICAL THERAPY DISCONTINUANCE OF CARE PLAN OF CARE UPDATE: Assessment: Adeel Muller is discontinued from Physical Therapy services due to maximal benefit. and Patient/Clinician mutual decision to discontinue current plan of care.. Patient was seen for 21 visits from Start of Care Date: 09/10/22 to 01/06/2023 and treatment included: Therapeutic exercise, Neuromuscular re-education, Manual therapy, Self-shelter management, Patient/Family/Caregiver Education, Body mechanics training, and Functional training. Pt has made good progress since surgery but remains limited mostly by L UE issues: L shoulder pain & weakness and L UE paresthesias due to likely nerve damage from tumor and/or possible RTC involvement. PT & pt agreed to hold further PT at this time due to insurance (no more visits authorized) and pt likely reaching current rehab potential. Pt has f/u with surgeon next month and plans to discuss L shoulder pain & weakness. He may benefit from testing to determine extent of nerve damage and/or possible RTC injury. Will hold PT chart open until at pt request until f/u with . Goals for Episode of Care: created on 09/10/22 through 11/09/22 Modified 10/06/2022, extended thru 02/11/23 Pt will be able to have general UE strength of 4+/5. (progressing) [place] in home exercise program.Met (progressing) Patient will increase active ROM of L shoulder to 160 to allow pt to to improve performance of ADLs.PRogressing (progressing) Patient will demonstrate increase in LE strength to 5/5 during manual muscle testing in order to improve function for work tasks. (Progressing) Perform walking with decreased report of symptoms/pain in 8 weeks. (progressing) Patient Goals: To get strength back in shoulders and legs. (progressing) SUBJECTIVE: reports contined R foot & L hand numbness which he had before surgery (says he can live with that). however he remains limited by L shoulder pain & weakness along with numbness & tingling in L UE. Pt saw PCP/WALLPAPER CONSULTANT last week for his L shoulder but she wants him to see the surgeon to get it checked. Pt has appt for next month. Pt reports overall improvement since surgery with improved strength, balance and gait. He feels like his balance and gait are good and his LE function is much better, R UE doing well but remains limited by L UE issues. He feels 60-70% improved overall (except for L UE) but only 10% improved with L UE. He reports difficulty with ADLs, work, physical & recreational activities due to L UE. Pain: Pain Pain Level: 4 Pain Location: Shoulder - Left Description: Aching, Dull, Numbness, Tingling Frequency: Intermittent, With movement PROMIS Scales Higher is Better 12/28/2022 12/13/2022 11/29/2022 Phys Func - Score - 41 (mild dysfunction) - Phys Func - Percentile - 18 % - Self-Eff Symptom - Score 36 (Low) - 42 (Average) Self-Eff Symptom - Percentile 8 % - 21 % T-scores: mean of general population = 50. 5 points is clinically meaningfully difference Percentiles provide an indication of how the patient's score ranks in relation to the general population. Higher percentile rankings indicate better function/quality of life. 50th percentile is the average of the general population and indicates half of respondents had a worse score. OBJECTIVE MEASURES WITH LEVEL OF FUNCTION: Posture / Alignment UE Observations: L UE muscle atrophy noted farhat in pec region UE AROM R UE AROM: R shoulder wnl & painfree L UE AROM: L shoulder limited by pain & weakness L Shoulder Flex: 130 Degrees (160AA) L Shoulder ABduction: 75 Degrees (155AA) UE and Cervical Strength R UE Strength: R shoulder grossly 4+ to 5/5 L UE Strength: L shoulder weakness as noted below L Shoulder Flexion: 3-/5 L Shoulder Abduction (C5): 3-/5 L Shoulder Internal Rotation: 4+/5 L Shoulder External Rotation: 4+/5 L Middle Trapezius: 3-/5 L Elbow Flexion (C6): 5/5 LE Strength R LE Strength: grossly 5/5 except hip weakness as noted below L LE Strength: grossly 5/5 except hip weakness as noted below R Hip Extension: 4+/5 R Hip Flexion (L2): 5/5 R Hip ABduction: 4-/5 R Knee Extension (L3): 5/5 R Knee Flexion: 5/5 R Ankle Dorsiflexion (L4): 5/5 L Hip Extension: 4+/5 L Hip Flexion (L2): 5/5 L Hip ABduction: 4/5 L Knee Extension (L3): 5/5 L Knee Flexion: 5/5 L Ankle Dorsiflexion (L4): 5/5 Special Tests - Shoulder Empty Can: Left Negative Gait Gait: Independent Gait Device: None Gait Observation: normal gait Balance Single Leg Stance: 30 seconds R, 12-15 seconds L Dynamic Standing Balance: Toe Walk, Heel Walk Toe Walk: without difficulty Heel Walk: without difficulty Tandem Walking: with minimal to no difficulty TREATMENT: Therapeutic Exercise: 1: recheck - see objective section for details, discussed progress & deficits, plans & options for PT 2: s/l hip Abd 5#R/L 20xea 3: s/l hip Abd with blue TB (also demonstrated standing hip Abd with TB) 4: seated shoulder AROM/AAROM 5: recommended continued shoulder ROM/stretching to maintain ROM & prevent shoulder stiffness 6: *seated/standing shoulder horiz Adduction with TB, isometrics with resistance or at wall/doorway 7: discussed possible causes of L shoulder pain/weakness including nerve damage vs RCT, discussed options for testing/tx Skilled Intervention: Patient was educated in proper exercise technique and purpose for exercises. Reviewed and educated patient on additions/changes for home exercise program as above (*). Skilled judgment was provided in selection of appropriate interventions. Correct performance of therapeutic exercises was facilitated with verbal, visual, and tactile cuing. Educated patient on rationale for performing exercises in regards to including balance, increase ease of ADL, and ROM and function . Patient education as noted. Neuromuscular Re-Education: 1: SLS activities R/L 2: tandem walk, heel & toe walking Skilled Intervention: Skilled judgment used to assess appropriate program for balance and coordination activity. Billing Therapeutic Exercise Treatment Minutes: 50 Neuromuscular Re-Education Treatment Minutes: 5 Skilled Treatment Time Minutes (timed and untimed codes): 55 Total Session Time (minutes): 72 Session Start Time : 1633 Session Stop Time : 174 Genoveva Marte PT documented in this encounter [facility] 12-24-2022 Miscellaneous Notes Appt scheduled Call placed to patient for more information. answered phone. provided pt work phone number as he was not home. Called work number. No answer. Voicemail not identified; no message left. Will forward to provider. Patient called asking if Dr. Alanis is able to placed an MRI order for patient. He is doing physical therapy and is having Left Shoulder discomfort and pain. Patient is willing to have a office visit if necessary for the order to be requested. Patient can be reach at [phone]. documented in this encounter [facility] 12-23-2022 History of Presen t illness Narrative Episode Visit Count: 19 Therapist That Will Accept/Oversee The Plan Of Care: Chidi Quiñones Start of Care Date: 09/10/22 Onset Date: 08/22/22 Plan of Care Certification Date: (n/a) Next Certification Due Date: (n/a) REHABILITATION AND SPORTS THERAPY PHYSICAL THERAPY PROGRESS REPORT PLAN OF CARE UPDATE: Assessment: Adeel Muller demonstrates improvements in walking, lifting, physical activities, working, and dressing. He has progressed toward goals. Patient continues to present with impairments in ADL's, flexibility, independence in exercise, overall function, range of motion, strength, and symptom management that interfere with lifting, physical activities, recreational activities, reaching overhead . Current prognosis is Good due to: current objective clinical presentation, positive past response to therapy . Pt has made overall improvement but remains limited by L UE paresthesias along with L shoulder pain & weakness (which may be related to possible shoulder injury/pathology). He will benefit from continued skilled therapy services to meet the updated goals for this plan of care as noted below. Pt may also benefit from further testing &/or ortho consult for L shoulder, thus pt plans to consult with PCP. Goals for Episode of Care: created on 09/10/22 through 11/09/22 Modified 10/06/2022, extended thru 02/11/23 Pt will be able to have general UE strength of 4+/5. (progressing) [place] in home exercise program.Met (progressing) Patient will increase active ROM of L shoulder to 160 to allow pt to to improve performance of ADLs.PRogressing (progressing) Patient will demonstrate increase in LE strength to 5/5 during manual muscle testing in order to improve function for work tasks. (Progressing) Perform walking with decreased report of symptoms/pain in 8 weeks. (progressing) Patient Goals: To get strength back in shoulders and legs. (progressing) Planned Interventions, Frequency, and Duration: 1x/week, Patient to be seen for Therapeutic exercise (16329), Neuromuscular re-education (40874), Manual therapy (64954), Therapeutic activities (42684), Gait Training (39370), Self-shelter management ([id number]) PLAN FOR NEXT VISIT: continue to progress B UE strength as tolerated, monitor L shoulder pain (pt to consult with PCP/ortho for L shoulder) SUBJECTIVE: pt reports overall improvement since surgery & PT. still limited by L shoulder pain & weakness as well as tingling in hands L much worse than R. pt only has a few PT visits left but would like to do more (needs more ins auth). Functional Limitations: lifting, physical activities, recreational activities, reaching overhead Pain: Pain Pain Level: 2 Pain Location: Shoulder - Left Description: Aching, Dull, Sharp Frequency: Intermittent Detailed Pain Score: Yes Worst Pain Level: 8 PROMIS Scales Higher is Better 12/13/2022 11/29/2022 11/15/2022 Phys Func - Score 41 (mild dysfunction) - 41 (mild dysfunction) Phys Func - Percentile 18 % - 18 % Self-Eff Symptom - Score - 42 (Average) - Self-Eff Symptom - Percentile - 21 % - T-scores: mean of general population = 50. 5 points is clinically meaningfully difference Percentiles provide an indication of how the patient's score ranks in relation to the general population. Higher percentile rankings indicate better function/quality of life. 50th percentile is the average of the general population and indicates half of respondents had a worse score. OBJECTIVE MEASURES WITH LEVEL OF FUNCTION: Posture / Alignment Posture: Forward head, Rounded shoulders, Elevated shoulder -left Lumbar Spine AROM Lumbar Flexion: Moderate limitation, Minimal limitation Lumbar Extension: Minimal limitation Lumbar R Side-Bend: Normal Lumbar L Side-Bend: Normal Cervical Spine ROM Cervical ROM : Limitation AROM (wfl & painfree, no effect on shoulder pain) Cervical Flexion AROM: Normal Cervical Extension AROM: Normal, Minimal limitation Cervical Side-Bend Right AROM: Normal Cervical Side-Bend Left AROM: Normal Cervical Rotation Right AROM: Normal Cervical Rotation Left AROM: Normal UE AROM R UE AROM: R shoulder wnl & painfree L UE AROM: L shoulder limited by pain & weakness R Shoulder Flex: 155 Degrees R Shoulder ABduction: 170 Degrees L Shoulder Flex: 130 Degrees (150AA) L Shoulder ABduction: 125 Degrees (160AA) UE and Cervical Strength R UE Strength: R shoulder grossly 4+ to 5/5 L UE Strength: L shoulder weakness as noted below L Shoulder Flexion: 4-/5 L Shoulder Abduction (C5): 3+/5 L Shoulder Internal Rotation: 4+/5 L Shoulder External Rotation: 4+/5 L Middle Trapezius: 4-/5 L Elbow Flexion (C6): 5/5 Hand Strength R Horticultural Worker Position 2 (lbs): 65 lbs L Horticultural Worker Position 2 (lbs): 60 lbs Special Tests - Shoulder Shoulder Special Tests: Neer, Empty Can Empty Can: Right Negative, Left Positive Neer: Right Negative, Left Positive Gait Gait: Independent Gait Device: None Gait Observation: normal gait TREATMENT: Therapeutic Exercise: 1: Bike L3x8', seat 3 2: HS stretch standing R/L 3: seated/standing B shoulder AROM 4: seated shoulder AAROM with cane FE & ABD 10xea 5: prone horiz Abd 1#L 20x 6: recheck - see objective section for details, discussed progress & deficits, plans for PT 7: reviewed UT stretch standing R/L Skilled Intervention: Patient was educated in proper exercise technique and purpose for exercises. Skilled judgment was provided in selection of appropriate interventions. Correct performance of therapeutic exercises was facilitated with verbal, visual, and tactile cuing. Educated patient on rationale for performing exercises in regards to increase ease of ADL and ROM and function. Patient education as noted. Billing Therapeutic Exercise Treatment Minutes: 65 Total Treatment Time Minutes (timed/untimed): 65 Session Start Time : 1630 Session Stop Time : 1740 Genoveva Marte, PT documented in this encounter [facility] 12-16-2022 History of Presen t illness Narrative Episode Visit Count: 18 Therapist That Will Accept/Oversee The Plan Of Care: Chidi Quiñones Start of Care Date: 09/10/22 Onset Date: 08/22/22 Plan of Care Certification Date: 11/11/22 Next Certification Due Date: 01/10/23 Patient Identified by Name and Date of : Yes REHABILITATION AND SPORTS THERAPY PHYSICAL THERAPY TREATMENT NOTE ASSESSMENT: Adeel Muller tolerated the session with fatigue and expected muscle soreness. He demonstrated difficulty with weakness limiting gravity dependent abduction and flexion left shoulder and improvements in joint mobility of g-h joint allowing increased gravity dependent AROM left shoulder abduction without added resistance . The patient will continue to benefit from ongoing skilled physical therapy to progress toward set goals. PLAN FOR NEXT VISIT: continue to progress strength in left shoulder complex, also address joint mobility left shoulder with left shoulder elevation SUBJECTIVE: patient frustrated by not being able to ride motor cycle , reaching forward with left arm causes nubness in left hand , Pain: Pain Pain Level: 4 Pain Location: Shoulder - Left (anterior, shoulder, clavicle) Description: Sore Post Treatment Pain Post Treatment Pain Level: 3 Post Treatment Pain Location: Shoulder - Left OBJECTIVE MEASURES WITH LEVEL OF FUNCTION: TREATMENT: Therapeutic Exercise: 1: nu step seat 8 level 4 ue/le 6 min moitored numbness in left hand 2: supine cervical retraction with bilateral shoulder flexion tyo 90 degrees 3: prone shoulder and thoracic extension 5 x 3 4: prone leg raise 5 x 2 right /left 5: supine leftr shoulder flexion 1 # 10 x 5 x pre and post MET for upslip 6: supine ulnar nerve glides left ue 7: supine distraction of left humerus wit oscillation and PROM left shoudler abduction 8: standing AAROM left dayron;ulder abduction , assist from GUEST SPECIALIST increased motion over time and with AROM left shoulder abduction 9: standing AROM left shoulder flexion green tb 15 x 10 x 10: attempted standing left shouolder abduction with orange tb , decreased ROM due to weakness not joint mobility 11: sidelying left dayron;ulder abduction with 1# 10 x 2 Skilled Intervention: Patient was educated in proper exercise technique and purpose for exercises. Skilled judgment was provided in selection of appropriate interventions. Manual Therapy: 1: prone LAD MET for left hip upslip with extension , and hip rotation , 4 x 2 , 4 x 1 Skilled Intervention: Manual skills to improve joint mobility, ROM, and decrease pain. Utilized anatomy knowledge of the therapist, and assessment of patient's response to intervention. Billing Therapeutic Exercise Treatment Minutes: 45 Manual TherapyTreatment Minutes: 10 Total Treatment Time Minutes (timed/untimed): 58 Session Start Time : 1626 Session Stop Time : 1724 Ross Ram PTA documented in this encounter [facility] 12-09-2022 History of Presen t illness Narrative Episode Visit Count: 17 Therapist That Will Accept/Oversee The Plan Of Care: Chidi Quiñones Start of Care Date: 09/10/22 Onset Date: 08/22/22 Plan of Care Certification Date: 11/11/22 Next Certification Due Date: 01/10/23 Patient Identified by Name and Date of : Yes REHABILITATION AND SPORTS THERAPY PHYSICAL THERAPY TREATMENT NOTE ASSESSMENT: Adeel Muller tolerated the session with expected muscle soreness. He demonstrated difficulty with L shoulder weakness but slight improvements in AROM & strength from 2 weeks ago. The patient will continue to benefit from ongoing skilled physical therapy to progress toward set goals. PLAN FOR NEXT VISIT: continue to progress L shoulder strength SUBJECTIVE: reports L shoulder is doing a little better but was aggravated after work last week and hurt this weekend. still c/o L shoulder weakness, which is his main deficit Pain: Pain Pain Level: 5 (minimal pain at rest) Pain Location: Shoulder - Left, Hand - Left Description: Aching, Dull, Sharp, Tingling (pain in shoulder, tingling in hand) Frequency: Continuous, Intermittent (intermittent pain L shoulder, constant tingling L hand) OBJECTIVE MEASURES WITH LEVEL OF FUNCTION: UE AROM L Shoulder Flex: 135 Degrees L Shoulder ABduction: 85 Degrees UE and Cervical Strength R UE Strength: R shoulder grossly 4+ to 5/5 L UE Strength: L shoulder weakness as noted below L Shoulder Flexion: 4-/5 L Shoulder Abduction (C5): 3+/5 TREATMENT: Therapeutic Exercise: 1: UBE standing L2x8', 5' B UE, 3' L UE only 2: standing shoulder shoulder FE with green TB 15-20xL 3: standing shoulder ABd with green TB 10xL 4: standing shoulder flexion 2#R/L 20xea (increased difficulty & fatigue L vs R d/t weakness) 5: standing shoulder Abd 2#R 20x, 1#L10x, 0#L 10x (increased difficulty L d/t weakness vs pain) 6: standing UT stretch Skilled Intervention: Patient was educated in proper exercise technique and purpose for exercises. Skilled judgment was provided in selection of appropriate interventions. Correct performance of therapeutic exercises was facilitated with verbal, visual, and tactile cuing. Educated patient on rationale for performing exercises in regards to increase ease of ADL and ROM and function. Patient education as noted. PT in constant attendance during use of UBE to review current status, monitor effort throughout activity and adjust set up as needed for maximum therapeutic benefit. Billing Therapeutic Exercise Treatment Minutes: 45 Total Treatment Time Minutes (timed/untimed): 45 Session Start Time : 1644 Session Stop Time : 1729 Genoveva Marte, PT documented in this encounter [facility] 12-02-2022 History of Presen t illness Narrative Episode Visit Count: 16 Therapist That Will Accept/Oversee The Plan Of Care: Chidi Quiñones Start of Care Date: 09/10/22 Onset Date: 08/22/22 Plan of Care Certification Date: 11/11/22 Next Certification Due Date: 01/10/23 Patient Identified by Name and Date of : Yes REHABILITATION AND SPORTS THERAPY PHYSICAL THERAPY TREATMENT NOTE ASSESSMENT: Adeel Muller tolerated the session with decreased symptoms. He demonstrated improvements in mechanics of left collar bone with AROM left shoulder flexion post manual techniques . The patient will continue to benefit from ongoing skilled physical therapy to progress toward set goals. PLAN FOR NEXT VISIT: address elevated left clavicle , cervical retraction and postural stability to improve shoulder motion and decreease numbness in hands SUBJECTIVE: patient reports continued numbness in left and right fingers more into left thumb and index finger , reaching and work activities increase numbness in both hands Pain: Pain Pain Level: 4 Pain Location: Shoulder - Left, Hand - Left (left clavicle) Post Treatment Pain Post Treatment Pain Level: 2 Post Treatment Pain Location: Hand - Left (clavicle left) Post Treatment Pain Description: (less numbness in left hand , increased AROM left shoulder flexon) OBJECTIVE MEASURES WITH LEVEL OF FUNCTION: TREATMENT: Therapeutic Exercise: 1: supine PROM cervical retraction 10 x 2 2: supine bilateral AROM shoulder flexion , 3: supine P/AROM left shoulder ER 4: right sidelying left shoulder abduction with elbow flexed and with elbow extended 10 x each 5: supine distraction of left humerus with oscillation and PROM left shoulder abduction 6: manual stretch of left pec , post pec stretch patient decreased ability to flex left shoulder through full ROM 7: educated patient on normal motion of clavicle with shoulder elevation Skilled Intervention: Patient was educated in proper exercise technique and purpose for exercises. Skilled judgment was provided in selection of appropriate interventions. Patient education as noted. Manual Therapy: 1: prone LAD MET for left hip upslip with extension , and hip rotation , 4 x 2 , 4 x 1 Skilled Intervention: Manual skills to improve joint mobility, ROM, and decrease pain. Utilized anatomy knowledge of the therapist, and assessment of patient's response to intervention. Billing Therapeutic Exercise Treatment Minutes: 45 Manual TherapyTreatment Minutes: 10 Total Treatment Time Minutes (timed/untimed): 60 Session Start Time : 1644 Session Stop Time : 1744 Ross Ram PTA documented in this encounter [facility] 11-25-2022 History of Presen t illness Narrative Episode Visit Count: 15 Therapist That Will Accept/Oversee The Plan Of Care: Chidi Quiñones Start of Care Date: 09/10/22 Onset Date: 08/22/22 Plan of Care Certification Date: 11/11/22 Next Certification Due Date: 01/10/23 Patient Identified by Name and Date of : Yes REHABILITATION AND SPORTS THERAPY PHYSICAL THERAPY TREATMENT NOTE ASSESSMENT: Adeel Muller tolerated the session with increased symptoms (L shoulder pain). He also demonstrated difficulty with L shoulder weakness related to neck/tumor issues and likely nerve compression whereas L shoulder pain is more recent/acute from likely strain or tendonitis. The patient will continue to benefit from ongoing skilled physical therapy to progress toward set goals. PLAN FOR NEXT VISIT: address L shoulder AROM & strength without aggravating recent shoulder pain/strain SUBJECTIVE: Patient Reason for Visit: reports L shoulder pain over the past weeks (aggravated by PT exercise), also c/o L hand numbness present since before surgery. prior to surgery whole L UE was numb and his hand was crippled up so he's definitely better than before surgery. L UE weakness has been present for awhile but L shoulder pain is new. pt also c/o L LE pain (mostly when driving) but thinks it's getting better. says his main deficit is probably L UE weakness. Pt reports difficulty doing his yardwork and some work activities/ (lifting stuff). Pain: Pain Pain Level: 5 Pain Location: Shoulder - Left, Hand - Left Description: Aching, Sore, Numbness OBJECTIVE MEASURES WITH LEVEL OF FUNCTION: Lumbar Spine AROM Lumbar Flexion: Moderate limitation (limited by HS tightness) Lumbar Extension: Minimal limitation Cervical Spine ROM Cervical ROM : (wfl & relatively painfree) UE AROM R UE AROM: R shoulder wnl & painfree L UE AROM: L shoulder limited by weakness > pain as noted below L Shoulder Flex: 115 Degrees (160AA) L Shoulder ABduction: 95 Degrees (150AA) L Shoulder Internal Rotation: (symmetrical to R with slight pain) L Shoulder External Rotation: (nearly symmetrical to R) LE Flexibility Flexibility: Hamstring Flexibility R Hamstring Flexibility: significant tightness L Hamstring Flexibility: significant tightness UE and Cervical Strength Strength Tested: Shoulder Functional Strength R UE Strength: R shoulder grossly 4+ to 5/5 L UE Strength: L shoulder weakness as noted below L Shoulder Flexion: 3+/5 L Shoulder Abduction (C5): 3/5 L Shoulder Internal Rotation: 4+/5 L Shoulder External Rotation: 4+/5 L Middle Trapezius: 4/5 L Elbow Flexion (C6): 5/5 Gait Gait Observation: normal gait Stairs: Independent Number of Stairs: 10 Stairs: reciprocal without difficulty Balance Static Standing Balance: Single Leg Stance Single Leg Stance: 16 seconds R, 8-12 seconds L Dynamic Standing Balance: Tandem Walking (heel to toe) Tandem Walking: slight difficulty TREATMENT: Therapeutic Exercise: 1: seated B shoulder AROM/AAROM all planes (L shoulder limited by weakness vs pain) 2: *supine shoulder FE 2#L10x 3: *s/l shoulder Abd 1#L10x 4: discussed/reviewd AAROM/stretching exercises 5: seated neck AROM all planes 6: seated/standing UT stretch R/L 7: reviewed HEP, advised pt to hold TB exercises that he thinks aggravated his shoulder 8: *HS stretch long-sit &/or standing 9: *standing back ext (also demonstrated & recommended PPU) 10: stair mobility: 10 steps reciprocal without difficulty Skilled Intervention: Patient was educated in proper exercise technique and purpose for exercises. Reviewed and educated patient on additions/changes for home exercise program as above (*). Skilled judgment was provided in selection of appropriate interventions. Correct performance of therapeutic exercises was facilitated with verbal, visual, and tactile cuing. Educated patient on rationale for performing exercises in regards to improving fitness, increase ease of ADL, and ROM and function . Patient education as noted. Manual Therapy: 1: STM/DTM to L UT, scalenes Skilled Intervention: Manual skills to improve joint mobility, ROM, and decrease pain. Utilized anatomy knowledge of the therapist, and assessment of patient's response to intervention. Neuromuscular Re-Education: 1: SLS activities R/L 2: tandem walk Skilled Intervention: Skilled judgment used to assess appropriate program for balance and coordination activity. Education in proprioceptive/kinesthetic awareness during standing and dynamic activities. Billing Therapeutic Exercise Treatment Minutes: 40 Manual TherapyTreatment Minutes: 10 Neuromuscular Re-Education Treatment Minutes: 5 Total Treatment Time Minutes (timed/untimed): 55 Session Start Time : 1640 Session Stop Time : 1740 Genoveva Marte PT documented in this encounter [facility] 11-11-2022 History of Presen t illness Narrative Episode Visit Count: 13 Therapist That Will Accept/Oversee The Plan Of Care: Chidi Quiñones Start of Care Date: 09/10/22 Onset Date: 08/22/22 Plan of Care Certification Date: 11/11/22 Next Certification Due Date: 01/10/23 Patient Identified by Name and Date of : Yes REHABILITATION AND SPORTS THERAPY PHYSICAL THERAPY PROGRESS REPORT PLAN OF CARE UPDATE: Assessment: Adeel Muller demonstrates improvements in rising from a chair, walking, lifting, and reaching overhead. He has progressed toward goals. Patient continues to present with impairments in balance, posture, range of motion, strength, and symptom management that interfere with walking, heavy exertion, working, lifting (yardwork) . Current prognosis is Good due to: current objective clinical presentation, positive past response to therapy . He will benefit from continued skilled therapy services to meet the updated goals for this plan of care as noted below. Goals for Episode of Care: created on 09/10/22 through 11/09/22 Modified 10/06/2022. Updated 11/11/22. Pt will be able to have general UE strength of 4+/5. (progressing) [place] in home exercise program.Met (progressing) Patient will increase active ROM of L shoulder to 160 to allow pt to to improve performance of ADLs.PRogressing (progressing) Patient will demonstrate increase in LE strength to 5/5 during manual muscle testing in order to improve function for work tasks. (Progressing) Perform walking with decreased report of symptoms/pain in 8 weeks. (progressing) Patient Goals: To get strength back in shoulders and legs. (progressing) Planned Interventions, Frequency, and Duration: 1x/week, 8 weeks Total Number of Visits Planned: 8 Patient to be seen for Therapeutic exercise (93702), Neuromuscular re-education (85593), Manual therapy (39412), Therapeutic activities (19249), Gait Training (15140), Self-shelter management (07532) PLAN FOR NEXT VISIT: progress cervical , scapular and thoracic stability , review and address neutral posture and proper body mechanics with work related activities SUBJECTIVE: . Stone reports improvements in left shoulder elevation, balance, and leg strength. He has been diligent with his home exercise program. He experiences intermittent tingling in left arm; he notices this when lifting and reaching. Prolonged sitting in the car aggravates his right thigh pain. He is on light duty work. Functional Limitations: walking, heavy exertion, working, lifting (yardwork) Pain: Pain Pain Level: 4 Pain Location: Neck - Left, Shoulder - Left, Thoracic Spine PROMIS Scales Higher is Better 11/01/2022 10/19/2022 10/03/2022 Phys Func - Score - 41 (mild dysfunction) - Phys Func - Percentile - 18 % - Self-Eff Symptom - Score 41 (Average) - 42 (Average) Self-Eff Symptom - Percentile 18 % - 21 % T-scores: mean of general population = 50. 5 points is clinically meaningfully difference Percentiles provide an indication of how the patient's score ranks in relation to the general population. Higher percentile rankings indicate better function/quality of life. 50th percentile is the average of the general population and indicates half of respondents had a worse score. OBJECTIVE MEASURES WITH LEVEL OF FUNCTION: UE AROM R Shoulder Flex: 150 Degrees R Shoulder ABduction: 170 Degrees L Shoulder Flex: 105 Degrees L Shoulder ABduction: 95 Degrees UE and Cervical Strength R Shoulder Abduction (C5): 4+/5 R Shoulder Internal Rotation: 4+/5 R Shoulder External Rotation: 4+/5 R Elbow Extension (C7): 5/5 R Elbow Flexion (C6): 5/5 R Wrist Extension: 4/5 R Wrist Flexion: 4+/5 L Shoulder Abduction (C5): 3+/5 L Shoulder Internal Rotation: 4+/5 L Shoulder External Rotation: 4/5 L Elbow Extension (C7): 4/5 L Elbow Flexion (C6): 4+/5 L Wrist Extension: 4+/5 L Wrist Flexion: 4+/5 LE Strength R Hip Flexion (L2): 4/5 R Knee Extension (L3): 4+/5 R Knee Flexion: 4+/5 R Ankle Dorsiflexion (L4): 4-/5 R Ankle Plantar Flexion: 5/5 R Great Toes Extension (L5, S1): 5/5 L Hip Extension: 4-/5 L Hip Flexion (L2): 4/5 L Knee Extension (L3): 4+/5 L Knee Flexion: 4/5 L Ankle Dorsiflexion (L4): 4/5 L Ankle Plantar Flexion: 4/5 L Great Toes Extension (L5, S1): 5/5 Functional Performance Test Results 5 Times Sit to Stand Test : 13.72 sec Timed Up and Go (sec): 8.73 sec 4 Stage Balance Test Single leg stance - right (sec): 25.23 sec Single leg stance - left (sec): 13.7 sec TREATMENT: Therapeutic Exercise: 1: -reassessment 2: -education on objective findings, status of PT goals, updated PT plan of care 3: -review of patient's HEP 4: *sit to stand 2x10 5: forward step up 8" step 2x10 bilat 6: lateral stepping, pink band above ankles, 7 ft [address] Skilled Intervention: Patient was educated in proper exercise technique and purpose for exercises. Reviewed and educated patient on additions/changes for home exercise program as above (*). Skilled judgment was provided in selection of appropriate interventions. Provided written instruction for home exercise program to facilitate proper performance and compliance. Correct performance of therapeutic exercises was facilitated with verbal, visual, and tactile cuing. Patient education as noted. Neuromuscular Re-Education: 1: SLS on level surface 30"x3 bilat Skilled Intervention: Skilled judgment used to assess appropriate program for balance and coordination activity. Ensured patient safety with use of guarding Billing Therapeutic Exercise Treatment Minutes: 42 Neuromuscular Re-Education Treatment Minutes: 3 Total Treatment Time Minutes (timed/untimed): 45 Elodia Fuller PT, DPT documented in this encounter [facility] 10-21-2022 Miscellaneous Notes Call from patient requesting refill. Requested Prescriptions Pending Prescriptions Disp Refills gabapentin (NEURONTIN) 300 mg capsule 90 capsule 2 Sig: Take 1 capsule by mouth three times daily for 90 days. Patient last seen 09-02-22 next appt: 03-10-23 Cathie Mc documented in this encounter [facility] 10-20-2022 History of Presen t illness Narrative Episode Visit Count: 11 Therapist That Will Accept/Oversee The Plan Of Care: Chidi Quiñones Start of Care Date: 09/10/22 Onset Date: 08/22/22 Plan of Care Certification Date: 09/10/22 Next Certification Due Date: 11/09/22 Patient Identified by Name and Date of : Yes REHABILITATION AND SPORTS THERAPY PHYSICAL THERAPY TREATMENT NOTE ASSESSMENT: Adeel Muller tolerated the session with no issues. He demonstrated difficulty with scapula positioning. The patient will continue to benefit from ongoing skilled physical therapy to progress toward set goals. PLAN FOR NEXT VISIT: re-assess scapula mechanics and neck pain after taping. SUBJECTIVE: Patient Reason for Visit: Pt has increased in L neck pain from arm raising, he has tried neck roll while driving and it helps some. Pt to return to work thursday. 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 Skilled judgment was provided in selection of appropriate interventions. Neuromuscular Re-Education: Skilled Intervention: taped pt scapula in down and back position to facilitate improved mechanics with raising of the LUE. Chidi Quiñones PT documented in this encounter [facility] 10-15-2022 History of Presen t illness Narrative Episode Visit Count: 10 Therapist That Will Accept/Oversee The Plan Of Care: Chidi Quiñones Start of Care Date: 09/10/22 Onset Date: 08/22/22 Plan of Care Certification Date: 09/10/22 Next Certification Due Date: 11/09/22 Patient Identified by Name and Date of : Yes REHABILITATION AND SPORTS THERAPY PHYSICAL THERAPY TREATMENT NOTE ASSESSMENT: Adeel Muller tolerated the session with fatigue and expected muscle soreness. He demonstrated improvements in use of scapular stabilizers , difficulty with dynamic scapular stability with gravity dependent positions. The patient will continue to benefit from ongoing skilled physical therapy to progress toward set goals. PLAN FOR NEXT VISIT: progress neutral cervical and thoracic postuer and scapular stability strengthen core and le as able SUBJECTIVE: Patient Reason for Visit: patient reports intermittent numbness in left fingers and thumb, and right foot numbness with prolonged sitting like driving more than 20 minutes Pain: Pain Pain Level: 3 Pain Location: Neck - Left, Finger - Left Description: Sore, Numbness Post Treatment Pain Post Treatment Pain Level: No Change OBJECTIVE MEASURES WITH LEVEL OF FUNCTION: TREATMENT: Therapeutic Exercise: 1: hooklying shoulder horizontal abduction blue tb purple tb 10 x 2 each thumb facing away from each other 2: hooklying on 1/2 roll 3 mikn 3: straddling shuttle SA push off 1 big and 2 small bands 10 x 2 4: supine bilateral ER with thoracic extension 10 x 2 5: seated thoracic extension with cervical retraction lumbar roll at low back 6: standing BOING right /left with shoulder flexion 5 x each Skilled Intervention: Patient was educated in proper exercise technique and purpose for exercises. Skilled judgment was provided in selection of appropriate interventions. Manual Therapy: 2: right 1st rib mob MET Skilled Intervention: Manual skills to improve joint mobility, ROM, and decrease pain. Utilized anatomy knowledge of the therapist, and assessment of patient's response to intervention. Billing Therapeutic Exercise Treatment Minutes: 40 Manual TherapyTreatment Minutes: 3 Total Treatment Time Minutes (timed/untimed): 43 Ross Ram PTA documented in this encounter [facility] 10-13-2022 History of Presen t illness Narrative Episode Visit Count: 9 Therapist That Will Accept/Oversee The Plan Of Care: Chidi Quiñones Start of Care Date: 09/10/22 Onset Date: 08/22/22 Plan of Care Certification Date: 09/10/22 Next Certification Due Date: 11/09/22 Patient Identified by Name and Date of : Yes REHABILITATION AND SPORTS THERAPY PHYSICAL THERAPY TREATMENT NOTE ASSESSMENT: Adeel Muller tolerated the session with fatigue. 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 The patient will continue to benefit from ongoing skilled physical therapy to progress toward set goals. PLAN FOR NEXT VISIT: Progress rhomboid and mid trap strength SUBJECTIVE: Patient Reason for Visit: Pt legs are sore from push mowing this weekend. He feels the neck is doing OK. 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 Reviewed and educated patient on additions/changes for home exercise program as above (*). Skilled judgment was provided in selection of appropriate interventions. Manual Therapy: 2: 1 rib mobilization Skilled Intervention: Manual skills to improve joint mobility, ROM, and decrease pain. Utilized anatomy knowledge of the therapist, and assessment of patient's response to intervention. Billing Therapeutic Exercise Treatment Minutes: 45 Manual TherapyTreatment Minutes: 5 Total Treatment Time Minutes (timed/untimed): 50 Chidi Quiñones PT documented in this encounter [facility] 10-10-2022 History of Presen t illness Narrative Episode Visit Count: 8 Therapist That Will Accept/Oversee The Plan Of Care: Chidi Quiñones Start of Care Date: 09/10/22 Onset Date: 08/22/22 Plan of Care Certification Date: 09/10/22 Next Certification Due Date: 11/09/22 Patient Identified by Name and Date of : Yes REHABILITATION AND SPORTS THERAPY PHYSICAL THERAPY TREATMENT NOTE ASSESSMENT: Adeel Muller tolerated the session with fatigue. He demonstrated difficulty with L shoulder strengthening. The patient will continue to benefit from ongoing skilled physical therapy to progress toward set goals. PLAN FOR NEXT VISIT: progress cervical strength and ROM SUBJECTIVE: Patient Reason for Visit: Pt felt like last visit helped and he is doing the prone head lift. Pt has return to work scheduled for October 22 light duty with 15 Pain: Pain Pain Level: 3 Pain Location: Neck - Left OBJECTIVE MEASURES WITH LEVEL OF FUNCTION: TREATMENT: Therapeutic Exercise: 1: *prone head and chest lift with emphasis on cervical motion 10x2 2: sls [id number] R, L 3: sidelying cervical SB 10x1 R, L 4: supine horizontal abduction 10x2 purple 5: supine ER blue band 6: Standing shoulder extension 10x 7: standing forwad lead/backward lean 8: step ups 8 inch step 20 9: *towel squeeze arm raise L 5x3 10: Nu step L4 6 min then bumped up to L5 3 min 12: side steps on to 4 inch step Skilled Intervention: Patient was educated in proper exercise technique and purpose for exercises. Skilled judgment was provided in selection of appropriate interventions. Billing Therapeutic Exercise Treatment Minutes: 45 Total Treatment Time Minutes (timed/untimed): 45 Chidi Quiñones PT documented in this encounter [facility] 10-09-2022 Miscellaneous Notes Patient called to ask the provider if he can return to work early post op. 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 But he feels ok, and would like to return to work on ThursdayOctober 22 on light duty. His boss will have someone help him. Please let patient know at [phone]. documented in this encounter [facility] 10-06-2022 History of Presen t illness Narrative Episode Visit Count: 7 Therapist That Will Accept/Oversee The Plan Of Care: Chidi Quiñones Start of Care Date: 09/10/22 Onset Date: 08/22/22 Plan of Care Certification Date: 09/10/22 Next Certification Due Date: 11/09/22 Patient Identified by Name and Date of : Yes REHABILITATION AND SPORTS THERAPY PHYSICAL THERAPY PROGRESS REPORT PLAN OF CARE UPDATE: Assessment: Adeel Muller demonstrates moderate improvement in walking and lifting. He has progressed toward goals. Patient continues to present with impairments in overall function, range of motion, and strength that interfere with . Current prognosis is Good due to: current objective clinical presentation Good . He will benefit from continued skilled therapy services to meet the updated goals for this plan of care as noted below. Goals for Episode of Care: created on 09/10/22 through 11/09/22 Modified 10/06/2022 Pt will be able to have general UE strength of 4+/5.R MET, L progressing [place] in home exercise program.Met Patient will increase active ROM of L shoulder to 160 to allow pt to to improve performance of ADLs.PRogressing Patient will demonstrate increase in LE strength to 5/5 during manual muscle testing in order to improve function for work tasks. Progressing Perform walking with decreased report of symptoms/pain in 8 weeks. Progressing Patient Goals: To get strength back in shoulders and legs. Planned Interventions, Frequency, and Duration: 2x/week, 8 weeks Total Number of Visits Planned: 16 Patient to be seen for Therapeutic exercise (66455), Neuromuscular re-education (43418), Manual therapy (26906), Therapeutic activities (59306), Gait Training (83999) PLAN FOR NEXT VISIT: progress cevical and scapular stability statically , then if able too dynamically SUBJECTIVE: Patient Reason for Visit: Pt continued numbness in L hand occasionally, pain in L shoulder and neck continue.. Pain: Pain Pain Level: 3 Pain Location: Neck - Left Description: Sore PROMIS Scales Higher is Better 10/03/2022 09/22/2022 09/07/2022 Phys Func - Score - 41 (mild dysfunction) - Phys Func - Percentile - 18 % - Self-Eff Symptom - Score 42 (Average) - 42 (Average) Self-Eff Symptom - Percentile 21 % - 21 % T-scores: mean of general population = 50. 5 points is clinically meaningfully difference Percentiles provide an indication of how the patient's score ranks in relation to the general population. Higher percentile rankings indicate better function/quality of life. 50th percentile is the average of the general population and indicates half of respondents had a worse score. OBJECTIVE MEASURES WITH LEVEL OF FUNCTION: UE and Cervical Strength R Shoulder Abduction (C5): 4+/5 R Shoulder Internal Rotation: 4+/5 R Shoulder External Rotation: 4+/5 R Elbow Extension (C7): 4+/5 R Elbow Flexion (C6): 4+/5 R Wrist Extension: 4+/5 R Wrist Flexion: 4+/5 L Shoulder Abduction (C5): 3+/5 L Shoulder Internal Rotation: 4+/5 L Shoulder External Rotation: 4-/5 L Elbow Extension (C7): 4/5 L Elbow Flexion (C6): 4/5 L Wrist Extension: 4/5 L Wrist Flexion: 4/5 4 Stage Balance Test Tandem base of support (sec): 30 sec Single leg stance - right (sec): 30 sec Single leg stance - left (sec): 19 sec TREATMENT: Therapeutic Exercise: 1: *prone head and chest lift with emphasis on cervical motion 10x2 2: sls [id number] R, L 3: supine head press with shoulder depression. 5: standing active bilateral upper trap stretch with cane behind back and depressing scapula 10 seconds x 5 6: standing AAROM left shoulder flexion with cervical retraction 5 x 2 7: PPU 10x 10: Nu step L4 6 min then bumped up to level 5 for 4 min Skilled Intervention: Patient was educated in proper exercise technique and purpose for exercises. Reviewed and educated patient on additions/changes for home exercise program as above (*). Skilled judgment was provided in selection of appropriate interventions. Manual Therapy: 1: scar mobilization 2: supine thoracic mobilization. Skilled Intervention: Manual skills to improve joint mobility, ROM, and decrease pain. Utilized anatomy knowledge of the therapist, and assessment of patient's response to intervention. Billing Therapeutic Exercise Treatment Minutes: 45 Manual TherapyTreatment Minutes: 10 Total Treatment Time Minutes (timed/untimed): 55 Chidi Quiñones PT documented in this encounter [facility] 10-01-2022 History of Presen t illness Narrative Episode Visit Count: 6 Therapist That Will Accept/Oversee The Plan Of Care: Chidi Quiñones Start of Care Date: 09/10/22 Onset Date: 08/22/22 Plan of Care Certification Date: 09/10/22 Next Certification Due Date: 11/09/22 Patient Identified by Name and Date of : Yes REHABILITATION AND SPORTS THERAPY PHYSICAL THERAPY TREATMENT NOTE ASSESSMENT: Adeel Muller tolerated the session with expected muscle soreness. He demonstrated difficulty with maintaining cervical and scapular stability with dynamic overhead activities and improvements in static and dynamics standing activities . The patient will continue to benefit from ongoing skilled physical therapy to progress toward set goals. 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 but does not feel safe enough to do that due to left shoulder weakness and balance issues Pain: Pain Pain Level: 3 Pain Location: Neck - Left Description: Sore Frequency: Intermittent OBJECTIVE MEASURES WITH LEVEL OF FUNCTION: TREATMENT: Therapeutic Exercise: 1: UBE level 2 2 min forward 3 minutes retro , while standing on blue foam , educated patient on using global stabilizers with arm and shoulder motion 2: *standing ER left shoulder with side step left 10 x 2 , then ER right shoulder with side step right 10 x 2 3: standing dribbling red theralball above head bilaeral ue , 20 x 2 , attempted dribbling with right hand unable 4: seated straddling shuttl SA push off into red theraball 1 band 10 x 2 5: standing active bilateral upper trap stretch with cane behind back and depressing scapula 10 seconds x 5 6: standing AAROM left shoulder flexion with cervical retraction 5 x 2 Skilled Intervention: Patient was educated in proper exercise technique and purpose for exercises. Reviewed and educated patient on additions/changes for home exercise program as above (*). Skilled judgment was provided in selection of appropriate interventions. Neuromuscular Re-Education: 1: tandem stance without ue support 15 seconds x 3 , right /left leg back 2: single leg stance right 15 seconds x 2 , 13 seconds x 1 , single leg stance left , 7 seconds at best , 2-3 seconds x 4 3: resistive forward walking , degroot tb 50 ' x 2 4: retro walking 50 ' , resistive retro walking 50 ' degroot tb 5: educated patient on how multi task activities affect balance Skilled Intervention: Patient education as noted. Billing Therapeutic Exercise Treatment Minutes: 30 Neuromuscular Re-Education Treatment Minutes: 25 Total Treatment Time Minutes (timed/untimed): 55 Ross Ram PTA documented in this encounter [facility] 09-29-2022 History of Presen t illness Narrative Episode Visit Count: 5 Therapist That Will Accept/Oversee The Plan Of Care: Chidi Quiñones Start of Care Date: 09/10/22 Onset Date: 08/22/22 Plan of Care Certification Date: 09/10/22 Next Certification Due Date: 11/09/22 Patient Identified by Name and Date of : Yes REHABILITATION AND SPORTS THERAPY PHYSICAL THERAPY TREATMENT NOTE ASSESSMENT: Adeel Muller tolerated the session with fatigue. He demonstrated improvements in balance and LE strength. The patient will continue to benefit from ongoing skilled physical therapy to progress toward set goals. PLAN FOR NEXT VISIT: progress scapular thoracic and cervical stability , continue to address both upper and lower extremity strength and balance withtandem stance and single leg stance SUBJECTIVE: Patient Reason for Visit: Sidebending neck exercise has helped the finger numbness but it does cause pain in the L neck. Pt feels he is gaining strength and balance is improving. 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 8: step ups 8 inch step 20 9: *towel squeeze arm raise L 5x3 10: Nu step L 4 4 min, L 5 2 min, adjusted level to provide more endurance. 11: cone steps 5x4 12: side cone steps 5x4 Skilled Intervention: Patient was educated in proper exercise technique and purpose for exercises. Reviewed and educated patient on additions/changes for home exercise program as above (*). Skilled judgment was provided in selection of appropriate interventions. Billing Therapeutic Exercise Treatment Minutes: 45 Total Treatment Time Minutes (timed/untimed): 45 Chidi Quiñones PT documented in this encounter [facility] 09-25-2022 History of Presen t illness Narrative Episode Visit Count: Visit count could not be calculated. Make sure you are using a visit which is associated with an episode. Therapist That Will Accept/Oversee The Plan Of Care: Chidi Quiñones Start of Care Date: 09/10/22 Onset Date: 08/22/22 Plan of Care Certification Date: 09/10/22 Next Certification Due Date: 11/09/22 Patient Identified by Name and Date of : Yes REHABILITATION AND SPORTS THERAPY PHYSICAL THERAPY TREATMENT NOTE ASSESSMENT: Adeel Muller tolerated the session with expected muscle soreness continued numbness in left tips of thumb and index fingers. He demonstrated improvements in static standing balance. The patient will continue to benefit from ongoing skilled physical therapy to progress toward set goals. PLAN FOR NEXT VISIT: progress scapular thoracic and cervical stability , continue to address both upper and lower extremity strength and balance withtandem stance and single leg stance SUBJECTIVE: Patient Reason for Visit: patient reports continued numbness in left thumb and index finger , also reports tightness in left side of neck going into left upper trap Pain: Pain Pain Level: 3 Pain Location: Neck - Left Description: Sore Frequency: Intermittent Additional Pain Information : Location 2 Pain Level 2: 3 Pain Location 2: Finger - Left Description 2: Numbness Frequency 2: Continuous Post Treatment Pain Post Treatment Pain Level: No Change OBJECTIVE MEASURES WITH LEVEL OF FUNCTION: TREATMENT: Therapeutic Exercise: 1: supine cervical rotation left <=> right 5 x 2 2: supine chin retraction with thoracic extension and scapular retraction 5 second hold x 10 3: supine AAAROM left shoulder flexion 4: seated on shuttle SA push off 1 band pushing into red theraball 10 x 2 5: *seated left upper trap and levator scapula stretches 30 second x 2 each , 6: *stamdomg wall push up at 90 degrees shoulder flexion 10 x 2 7: right side lying left slr 10 x 2 Skilled Intervention: Patient was educated in proper exercise technique and purpose for exercises. Reviewed and educated patient on additions/changes for home exercise program as above (*). Skilled judgment was provided in selection of appropriate interventions. Provided written instruction for home exercise program to facilitate proper performance and compliance. Neuromuscular Re-Education: 1: tandem stance with verbal cues to textiles sales representative floor 20 seconds x 2 each 2: tndem stance with alternating shoulder flexion to 90 degrees 10 x right/left leg back 3: single leg stance without ue support verbal cues to textiles sales representative floor with feet 20 seconds x 2 right /left 4: educated patient on use of hip abductors and gripping floor and setting gluts with sls and tandem stance Skilled Intervention: Patient education as noted. Billing Therapeutic Exercise Treatment Minutes: 45 Neuromuscular Re-Education Treatment Minutes: 10 Total Treatment Time Minutes (timed/untimed): 55 Ross Ram PTA documented in this encounter [facility] 09-02-2022 History of Presen t illness Narrative SPINE SURGERY FOLLOW UP This is an in-person visit. SERVICE DATE: 09/02/2022 SURGERY DATE: 08/22/2022 Adeel Muller is a pleasant 62-year-old gentleman is here in spine surgery clinic for 2 weeks postoperative follow-up visit. 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 Having neck pain, left arm pain, left arm weakness, right leg pain. He also had numbness over left upper extremity and diffuse left upper and lower extremity weakness. He also had a difficulty in walking due to lower extremity weakness as well as heaviness of legs. Since surgery his arm and leg weakness is improving. Still has stiff walking. Denies neck or arm pain. Numbness is improving. Denies drainage from the incision or fever. 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 I agree with the pathology report ANTIPLATELET OR ANTICOAGULATION STATUS: No Patient Entered Questionnaires Spine Questions 07/11/2022 08/27/2022 Pain Location: Neck Neck Pain Duration: 6 months - 1 year - Pain over last 6 months: At least half the days in the past 6 months - Symptoms from neck/cervical spine: Yes Yes Employment Status: Working now - Involved in law suit/legal claim: No - Neck Questionnaires 07/11/2022 08/27/2022 Benzel Modified BO Score 11 (A lower score indicates increased pain and issues.) 13 (A lower score indicates increased pain and issues.) PROMIS Score Percentiles Physical Health 07/11/2022 08/27/2022 Physical Function Percentile 7 7 Sleep Percentile 34 50 Fatigue Percentile 12 18* Pain Interference Percentile - 16* PROMIS SOCIAL ROLE SCORE 07/11/2022 08/27/2022 Social Role Satisfaction Percentile 14 8 PROMIS Global Health Scale 07/11/2022 Physical Health Percentile 15 Mental Health Percentile 34 Percentiles provide an indication of how the patient's score ranks in relation to the general population. Higher percentile rankings indicate better function/quality of life. 50th percentile is the average of the general population and indicates half of respondents had a worse score. Depression Screening: PHQ-9 07/11/2022 08/27/2022 Score 1 0 PHQ-9 Self-harm Question 07/11/2022 08/27/2022 Thoughts that you would be better off , or of hurting yourself in some way 0 0 PHQ-9 Self-Harm (Item 9) response options: 0 Not at all 1 Several days 2 More than half the days 3 Nearly every day PHQ-9 Levels: 0-4 No to mild depression 5-9 Mild depression 10-14 Moderate depression 15-19 Moderately severe depression 20-27 Severe depression PHYSICAL EXAM: BP 147/89 Pulse 79 Temp 36.4 C (97.6 F) Wt 86.5 kg (190 lb 12.8 oz) SpO2 98% BMI 28.18 kg/m GENERAL APPEARANCE: Well nourished, well developed, and no apparent distress. NEURO PSYCH: Patient oriented to person, place, and time. Mood pleasant. Benign affect. MUSCULOSKELETAL VISUAL INSPECTION CERVICAL: WNL THORACIC: WNL LUMBAR: Well-healing posterior cervical incision, no signs of infection. Sutures were intact. MOTOR: 5/5 in all muscle groups. Except mild left upper extremity weakness y. Mild left handgrip weakness SENSORY: Normal sensory exam GAIT: Tandem walking is a difficult REFLEXES: Hyper reflexia Clonus is present in ankles DATA REVIEW [facility] records independently reviewed Images independently reviewed with the patient DATE OF EXAM: Aug 24 2022 11:07AM [facility] [id number] - MRI CERVICAL SPINE WO/W IVCON / PROCEDURE REASON: Brain/SURFACE SHIP USW SUPERVISOR neoplasm, staging * * * * Physician Interpretation * * * * EXAMINATION: MRI CERVICAL SPINE WO/W IVCON CLINICAL HISTORY: Resection of probable meningioma TECHNIQUE: Routine cervical spine MR protocol without and with intravenous gadolinium. MQ: [id number] Contrast: 18 mL Dotarem IV COMPARISON: MRI cervical spine without/with contrast 08/01/2022. RESULT: Counting reference: Craniocervical junction. Anatomic Variants: None. Localizer images: No additional findings. Suboccipital craniectomy and C1 laminectomy with resection of the avidly enhancing dural based mass left laterally with minimal wispy enhancement at the margins of the operative bed and along the course surface without convincing residual. Expected fluid, air, and blood products in the operative bed. Reexpansion of the cord with T2 hyperintensity. Lower cervical dominant degenerative disease mostly impacting the neural foramina. No concerning marrow changes. Mild straightening of the mid to upper cervical lordosis. ASSESSMENT/PLAN Adeel Muller is a pleasant 62-year-old gentleman is here in spine surgery clinic for 2 weeks postoperative follow-up visit. 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 Having neck pain, left arm pain, left arm weakness, right leg pain. He also had numbness over left upper extremity and diffuse left upper and lower extremity weakness. He also had a difficulty in walking due to lower extremity weakness as well as heaviness of legs. Since surgery his arm and leg weakness is improving. Still has stiff walking. Denies neck or arm pain. Numbness is improving. Denies drainage from the incision or fever. 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 I agree with the pathology report Examination showed well-healing posterior cervical incision, no signs of infection. Hypertonia in upper and lower extremities. Clonus is present. Postoperative MRI showed no residual tumor. Discussed clinical, image finding. Showed images and explained detail. Recommended physical therapy, which is ordered. Recommended to increase his activities as tolerated, avoid lifting weight more than 15 to 20 pounds for another 4 weeks. Follow-up in spine surgery clinic at 6 months The majority of the visit was spent counseling and/or coordinating care for the patient. The patient was counseled regarding neck pain, arm pain, intradural extramedullary tumor, meningioma, intradural extramedullary tumor excision, gross total resection of tumor, neck exercise, physical therapy. Total face to face time was 20 minutes. SIGNATURE: Sam Pichardo MD PATIENT NAME: Adeel Muller DATE: September 02, 2022 TIME: 9:59 AM PAGER: documented in this encounter [facility] 08-01-2022 History of Presen t illness Narrative Radiology Service Progress Note DATE OF SERVICE: August 01, 2022 TIME: 9:08 AM PATIENT IDENTITY VERIFICATION COMPLETED USING TWO (2) STANDARD IDENTIFIERS: Name and Date of confirmed by patient verbally. FALL SCREENING: Has the patient had 2 falls in the last year or 1 fall with injury or currently using an Ambulatory Assistive Device (Walker, Cane, Wheelchair, Crutches, etc.)? No PATIENT GENDER DATA: Male PATIENT RELEVANT IMPLANT DATA REVIEWED: Not Applicable ALLERGIES: Reviewed and unchanged CONTRAST ALLERGY: NO. EXAM: MRI - CONTRAST TYPE: GROUP I OR GROUP III RISK FACTORS: N/A CREATININE: Creatinine Date Value Ref Range Status 07/23/2022 0.99 0.73 - 1.22 mg/dL Final 12/13/2018 1.05 0.67 - 1.17 mg/dL Final 12/06/2018 1.31 (H) 0.73 - 1.22 mg/dL Final Estimated Glomerular Filtration Rate Date Value Ref Range Status 07/23/2022 86 >=60 mL/min/1.73m Final Comment: Estimated Glomerular Filtration Rate (eGFR) is calculated using the 2020 CKD-EPI creatinine equation. This equation utilizes serum creatinine, sex, and age as parameters. The creatinine assay has traceable calibration to isotope dilution-mass spectrometry. Refer to KDIGO guidelines for clinical interpretation. In patients with unstable renal function, e.g. those with acute kidney injury, the eGFR may not accurately reflect actual GFR. eGFR- Date Value Ref Range Status 12/06/2018 >60 Final P.O.C.T. RESULTS: N/A August 01, 2022 TREATMENT: N/A PERIPHERAL IV DATA: Ambulatory: A peripheral IV was started in the Left antecubital site with a Angio cath: 22 gauge. RADIOLOGY DEPARTMENT: MR; Exam(s) Completed: Spine: Cervical spine SIGNATURE: [facility] PATIENT NAME: Adeel Muller DATE: August 01, 2022 TIME: 9:08 AM documented in this encounter [facility] 07-24-2022 Note HNO ID: [id number] Author: Bonnie Marinelli PA-C Service: ? Author Type: Physician Last [place] Type: Progress Notes Filed: 07/24/2022 12:54 PM Note Text: Lab Value Units Date High Low HB 14.3 g/dL 07/23/2022 17.0 13.0 HCT 44.4 % 07/23/2022 51.0 39.0 WBC 7.09 k/uL 07/23/2022 11.00 3.70 PLT 226 k/uL 07/23/2022 400 150 NA 135 mmol/L 07/23/2022 144 136 K 4.6 mmol/L 07/23/2022 5.1 3.7 GLUC 91 mg/dL 07/23/2022 99 74 BUN 20 mg/dL 07/23/2022 24 9 CREAT 0.99 mg/dL 07/23/2022 1.22 0.73 PTSEC No results within date range. INR No results within date range. APTT No results within date range. ALT 22 U/L 07/23/2022 54 10 AST 20 U/L 07/23/2022 40 14 TBILI 0.3 mg/dL 07/23/2022 1.3 0.2 TSH No results within date range. Lab Value Units Date High Low HCGQT No results within date range. UHCG No results within date range. HCG, BODY* No results within date range. Lab Value Units Date High Low ABORHD No results within date range. ABSCREEN No results within date range. No results found for: HBA1C Recent Results (from the past 8760 hour(s)) ECG COMPLETE Collection Time: 07/23/22 3:05 PM Result Value Ventricular Rate 78 Atrial Rate 78 P-R Interval 124 QRS Duration 96 QT Interval 362 QTC Calculation (Bazett) 412 Calculated P [place] 43 Calculated R [place] 0 Calculated T [place] 38 Impression NORMAL SINUS RHYTHM POSSIBLE LEFT ATRIAL ENLARGEMENT BORDERLINE ECG NO PREVIOUS ECGS AVAILABLE Confirmed by ZANE HUITRON M.D. ([id number]) on 07/24/2022 12:47:27 PM Labs and ECG reviewed and accepted. Pt is optimally prepared for surgery. Bonnie Marinelli PA-C 07/24/2022 12:54 PM [facility] 07-23-2022 Instructions Bonnie Marinelli PA-C - 07/23/2022 3:11 PM EDT PATIENT PREOPERATIVE INSTRUCTIONS [facility]: [phone] --[id number] [address]. Please check in on the 1st floor at registration desk 6. Please read below carefully for your personalized instructions. Dietary Restrictions: - No solid food after midnight. - You may have 12 ounces of clear liquids (water, clear juices such as apple juice or gatorade, carbonated beverages, clear tea, black coffee, jello) until 2 hours before scheduled arrival at facility. - Do not drink any alcohol after midnight the night before your surgery. Medications: Unless instructed differently below, stay on all of your medications until your surgery. Approved medications to take the morning of surgery with a sip of water: gabapentin. If you take any medications for erectile dysfunction-Cialis (Tadalafil), Levitra, Staxyn (Vardenafil) Viagra (Sildenenafil please do not take these for 48 hours before surgery. If you start any new medications after today's visit, please contact the surgeon's office. Blood Thinning Medications: - Stop NSAIDS (Ibuprofen, Advil, Aleve, Motrin, Celebrex, Mobic, etc.) 7 days before surgery, as directed by your surgeon. - Stop Aspirin 7 days before surgery, as directed by your surgeon. - Stop Vitamin E, ALL multi-vitamins, herbals and dietary supplements 7 days before surgery. - You may take Tylenol (Acetaminophen) or any of your pain medications that do not contain aspirin or NSAIDS as needed. Important Reminders: - Candy, mints, and tobacco products are NOT permitted the morning of surgery. - Hearing aids, dentures and glasses may be worn the morning of surgery. - NO jewelry, body piercings, makeup, hairpins or contacts are to be worn the day of surgery. If you develop symptoms such as a fever, cold, or flu, or have other changes to your health within TWO DAYS of scheduled surgery or the morning of surgery, please contact the surgery center above. Personal Belongings: -Please have photo ID and insurance cards. -If you do not have a copy of advance directives on file with us, please bring a copy with you on the day of surgery. - Leave ALL valuables and money at home or with family members. Arrival Time for Surgery: - The Surgery Center or hospital where you are having surgery will call the afternoon before surgery (or Thursday for Thursday surgery) with a scheduled arrival time. - If you have not heard by 4 pm, please contact the surgery center above. Please be aware that emergency situations arise, which may delay or change your surgical time. If this happens, we will notify you as soon as possible and regret any inconvenience. If you already have an Advance Directive, please fax a copy to [phone] or email to for it to be added to your chart. If you do not have an Advance Directive, you can find the appropriate form and more information at [email or web address]. We recommend that you complete the Advance Directive form found on the website and bring it with you the day of your surgery. It can be witnessed and scanned into your chart that day. documented in this encounter [facility] 03-28-2023 History and physical note Images from the original note were not included. HISTORY AND PHYSICAL EXAMINATION SERVICE DATE: 07/23/2022 SERVICE TIME: 2:58 PM PRIMARY CARE PHYSICIAN: João Michael APRN.WALLPAPER CONSULTANT REASON FOR VISIT: Adeel Muller is a 62 year old male who is scheduled for Procedure(s) with comments: LAMINECTOMY FOR BIOPSY/EXCISION INTRASPINAL NEOPLASM; INTRADURAL, EXTRAMEDULLARY, CERVICAL (N/A) - occipital crani C1-C2 lami decompression of intradural extramedullary tumor CRANIECTOMY W/ EXCISION OF BONE LESION OF SKULL (N/A) at the request of Dr. Sam Pichardo MD for consultation. My final recommendation will be communicated back to the requesting physician by way of shared medical record or letter. Subjective The patient has the following: ACTIVE PROBLEM LIST Wound Infection After Surgery, Subsequent Encounter Serg's Abscess of Right Tibia (Hcc) Closed Displaced Transverse Fracture of Shaft of Femur With Routine Healing Osteomyelitis of Knee Region (Hcc) Excessive Drinking of Alcohol Osteomyelitis of Right Tibia (Hcc) Former Smoker COVID-19 Immunization Status Overdue - COVID-19 VACCINE (3 - Booster for Moderna series) Overdue since 11/12/2020 09/17/2020 Outside Immunization: COVID-19, mRNA, LNP-S, PF, 100 mcg/0.5mL dose or 50 mcg/0.25mL dose 08/16/2020 Outside Immunization: COVID-19, mRNA, LNP-S, PF, 100 mcg/0.5mL dose or 50 mcg/0.25mL dose CHIEF COMPLAINT: intradural extramedullary spinal tumor HPI: Adeel Muller is a 62 year old male presenting for pre-anesthesia consultation with his . Pt has history of neck pain and left arm pain. Neck and left arm pain started approximately 6 months ago. When pain started, it was mild in nature but it has slowly gotten worse. Pain radiates into fingers. He also has numbness in LUE. Pt did PT without resolution of sx. 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 Above procedure recommended to manage symptoms. Procedure scheduled on 08/22/2022 at . REVIEW OF SYSTEMS: General: No weight loss, malaise or fevers. Neurological: No history of TIA's, stroke, SURFACE SHIP USW SUPERVISOR tumor, impaired sensorium, hemiplegia, paraplegia or quadraplegia. No neurological symptoms or problems. Respiratory: Positive for: tobacco use (former smoker). Negative for: asthma, bronchitis, COPD, current cough, URI < 2 weeks and obstructive sleep apnea. Cardiovascular: No history of HTN requiring medication, no history of angina, CHF, MS, cardiac surgery or stents. Denies rest pain, gangrene or revascularization/amputation for PVD. No history of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 for this same symptoms? No If "YES? please ask for the name of facility/address of where the surgery was completed: Additional Comments [phone] [facility] 11-19-2017 History of Past i llness Narrative Problem Noted Date Resolved Date Scalp laceration 11/19/2017 10/07/2018 Nicotine use disorder, F17.2 11/17/2017 Femur fracture, right 11/15/2017 10/07/2018 Overview: Added automatically from request for surgery [id number] documented as of this encounter (statuses as of 07/14/2022) [facility] History of Past illness Narrative* Problem Noted Date Resolved Date Scalp laceration 11/19/2017 10/07/2018 Nicotine use disorder, F17.2 11/17/2017 Femur fracture, right 11/15/2017 10/07/2018 Overview: Added automatically from request for surgery [id number] documented as of this encounter (statuses as of 07/18/2022) [facility] History of Past illness Narrative* Problem Noted Date Resolved Date Scalp laceration 11/19/2017 10/07/2018 Nicotine use disorder, F17.2 11/17/2017 Femur fracture, right 11/15/2017 10/07/2018 Overview: Added automatically from request for surgery [id number] documented as of this encounter (statuses as of 07/18/2022) [facility] History of Past illness Narrative* Problem Noted Date Resolved Date Scalp laceration 11/19/2017 10/07/2018 Nicotine use disorder, F17.2 11/17/2017 Femur fracture, right 11/15/2017 10/07/2018 Overview: Added automatically from request for surgery [id number] documented as of this encounter (statuses as of 07/23/2022) [facility] History of Past illness Narrative* Problem Noted Date Resolved Date Scalp laceration 11/19/2017 10/07/2018 Nicotine use disorder, F17.2 11/17/2017 Femur fracture, right 11/15/2017 10/07/2018 Overview: Added automatically from request for surgery [id number] documented as of this encounter (statuses as of 08/02/2022) [address]26-2018 History of Past illness Narrative* Problem Noted Date Resolved Date Scalp laceration 11/19/2017 10/07/2018 Nicotine use disorder, F17.2 11/17/2017 Femur fracture, right 11/15/2017 10/07/2018 Overview: Added automatically from request for surgery [id number] documented as of this encounter (statuses as of 08/26/2022) [address]26-2018 History of Past illness Narrative* Problem Noted Date Resolved Date Scalp laceration 11/19/2017 10/07/2018 Nicotine use disorder, F17.2 11/17/2017 Femur fracture, right 11/15/2017 10/07/2018 Overview: Added automatically from request for surgery [id number] documented as of this encounter (statuses as of 09/02/2022) [address]26-2018 History of Past illness Narrative* Problem Noted Date Resolved Date Scalp laceration 11/19/2017 10/07/2018 Nicotine use disorder, F17.2 11/17/2017 Femur fracture, right 11/15/2017 10/07/2018 Overview: Added automatically from request for surgery [id number] documented as of this encounter (statuses as of 09/25/2022) [address]26-2018 History of Past illness Narrative* Problem Noted Date Resolved Date Scalp laceration 11/19/2017 10/07/2018 Nicotine use disorder, F17.2 11/17/2017 Femur fracture, right 11/15/2017 10/07/2018 Overview: Added automatically from request for surgery [id number] documented as of this encounter (statuses as of 09/29/2022) [facility]26-2018 History of Past illness Narrative* Problem Noted Date Resolved Date Scalp laceration 11/19/2017 10/07/2018 Nicotine use disorder, F17.2 11/17/2017 Femur fracture, right 11/15/2017 10/07/2018 Overview: Added automatically from request for surgery [id number] documented as of this encounter (statuses as of 10/01/2022) [facility]26-2018 History of Past illness Narrative* Problem Noted Date Resolved Date Scalp laceration 11/19/2017 10/07/2018 Nicotine use disorder, F17.2 11/17/2017 Femur fracture, right 11/15/2017 10/07/2018 Overview: Added automatically from request for surgery [id number] documented as of this encounter (statuses as of 10/06/2022) [facility]2018 History of Past illness Narrative* Problem Noted Date Resolved Date Scalp laceration 11/19/2017 10/07/2018 Nicotine use disorder, F17.2 11/17/2017 Femur fracture, right 11/15/2017 10/07/2018 Overview: Added automatically from request for surgery [id number] documented as of this encounter (statuses as of 10/10/2022) [facility]2018 History of Past illness Narrative* Problem Noted Date Resolved Date Scalp laceration 11/19/2017 10/07/2018 Nicotine use disorder, F17.2 11/17/2017 Femur fracture, right 11/15/2017 10/07/2018 Overview: Added automatically from request for surgery [id number] documented as of this encounter (statuses as of 10/13/2022) [address]26-2018 History of Past illness Narrative* Problem Noted Date Resolved Date Scalp laceration 11/19/2017 10/07/2018 Nicotine use disorder, F17.2 11/17/2017 Femur fracture, right 11/15/2017 10/07/2018 Overview: Added automatically from request for surgery [id number] documented as of this encounter (statuses as of 10/15/2022) [facility]2018 History of Past illness Narrative* Problem Noted Date Resolved Date Scalp laceration 11/19/2017 10/07/2018 Nicotine use disorder, F17.2 11/17/2017 Femur fracture, right 11/15/2017 10/07/2018 Overview: Added automatically from request for surgery [id number] documented as of this encounter (statuses as of 10/20/2022) [facility]2018 History of Past illness Narrative* Problem Noted Date Resolved Date Scalp laceration 11/19/2017 10/07/2018 Nicotine use disorder, F17.2 11/17/2017 Femur fracture, right 11/15/2017 10/07/2018 Overview: Added automatically from request for surgery [id number] documented as of this encounter (statuses as of 10/21/2022) [facility]2018 History of Past illness Narrative* Problem Noted Date Diagnosed Date Resolved Date Scalp laceration 11/19/2017 10/07/2018 Nicotine use disorder, F17.2 11/17/2017 10/07/2018 Femur fracture, right 11/15/20172018 Overview: Added automatically from request for surgery [id number] documented as of this encounter (statuses as of 11/12/2022) [facility]2018 History of Past illness Narrative* Problem Noted Date Diagnosed Date Resolved Date Scalp laceration 11/19/2017 10/07/2018 Nicotine use disorder, F17.2 11/17/2017 10/07/2018 Femur fracture, right 11/15/20172018 Overview: Added automatically from request for surgery [id number] documented as of this encounter (statuses as of 11/26/2022) [facility] History of Past illness Narrative* Problem Noted Date Diagnosed Date Resolved Date Scalp laceration 11/19/2017 10/07/2018 Nicotine use disorder, F17.2 11/17/2017 10/07/2018 Femur fracture, right 11/15/20172018 Overview: Added automatically from request for surgery [id number] documented as of this encounter (statuses as of 12/03/2022) [address]26-2018 History of Past illness Narrative* Problem Noted Date Diagnosed Date Resolved Date Scalp laceration 11/19/2017 10/07/2018 Nicotine use disorder, F17.2 11/17/2017 10/07/2018 Femur fracture, right 11/15/20172018 Overview: Added automatically from request for surgery [id number] documented as of this encounter (statuses as of 12/10/2022) [address]26-2018 History of Past illness Narrative* Problem Noted Date Diagnosed Date Resolved Date Scalp laceration 11/19/2017 10/07/2018 Nicotine use disorder, F17.2 11/17/2017 10/07/2018 Femur fracture, right 11/15/20172018 Overview: Added automatically from request for surgery [id number] documented as of this encounter (statuses as of 12/17/2022) [address]26-2018 History of Past illness Narrative* Problem Noted Date Diagnosed Date Resolved Date Scalp laceration 11/19/2017 10/07/2018 Nicotine use disorder, F17.2 11/17/2017 10/07/2018 Femur fracture, right 11/15/20172018 Overview: Added automatically from request for surgery [id number] documented as of this encounter (statuses as of 12/24/2022) [address]26-2018 History of Past illness Narrative* Problem Noted Date Diagnosed Date Resolved Date Scalp laceration 11/19/2017 10/07/2018 Nicotine use disorder, F17.2 11/17/2017 10/07/2018 Femur fracture, right 11/15/20172018 Overview: Added automatically from request for surgery [id number] documented as of this encounter (statuses as of 12/24/2022) [address]26-2018 History of Past illness Narrative* Problem Noted Date Diagnosed Date Resolved Date Scalp laceration 11/19/2017 10/07/2018 Nicotine use disorder, F17.2 11/17/2017 10/07/2018 Femur fracture, right 11/15/20172018 Overview: Added automatically from request for surgery [id number] documented as of this encounter (statuses as of 12/26/2022) [facility] History of Past illness Narrative* Problem Noted Date Diagnosed Date Resolved Date Scalp laceration 11/19/2017 10/07/2018 Nicotine use disorder, F17.2 11/17/2017 10/07/2018 Femur fracture, right 11/15/20172018 Overview: Added automatically from request for surgery [id number] documented as of this encounter (statuses as of 01/07/2023) [facility]2018 History of Past illness Narrative* Problem Noted Date Diagnosed Date Resolved Date Scalp laceration 11/19/2017 10/07/2018 Nicotine use disorder, F17.2 11/17/2017 10/07/2018 Femur fracture, right 11/15/20172018 Overview: Added automatically from request for surgery [id number] documented as of this encounter (statuses as of 02/18/2023) [facility]2018 History of Past illness Narrative* Problem Noted Date Diagnosed Date Resolved Date Scalp laceration 11/19/2017 10/07/2018 Nicotine use disorder, F17.2 11/17/2017 10/07/2018 Femur fracture, right 11/15/20172018 Overview: Added automatically from request for surgery [id number] documented as of this encounter (statuses as of 02/18/2023) [facility]2018 History of Past illness Narrative* Problem Noted Date Diagnosed Date Resolved Date Scalp laceration 11/19/2017 10/07/2018 Nicotine use disorder, F17.2 11/17/2017 10/07/2018 Femur fracture, right 11/15/20172018 Overview: Added automatically from request for surgery [id number] documented as of this encounter (statuses as of 03/02/2023) [facility] History of Past illness Narrative* Problem Noted Date Diagnosed Date Resolved Date Scalp laceration 11/19/2017 10/07/2018 Nicotine use disorder, F17.2 11/17/2017 10/07/2018 Femur fracture, right 11/15/20172018 Overview: Added automatically from request for surgery [id number] documented as of this encounter (statuses as of 03/10/2023) [facility] Diagnosis Pre-op evaluation- Primary Preoperative examination, unspecified 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 [facility] Diagnosis 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 Localized swelling, mass or lump of neck Swelling, mass, or lump in head and neck [facility] Diagnosis Preoperative examination- Primary Preoperative examination, unspecified Pre-op evaluation Preoperative examination, unspecified Former smoker Personal history of tobacco use, presenting hazards to health Excessive drinking of alcohol Alcohol abuse, unspecified 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 [facility] 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 [facility] Diagnosis H/O cervical spine surgery- Primary Other postprocedural status 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 [facility] Diagnosis 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 [facility] Diagnosis Intradural tumor- Primary 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 Muscle weakness (generalized) [facility] Diagnosis Intradural tumor- Primary 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 Muscle weakness (generalized) [facility] Intradural tumor- Primary 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 Muscle weakness (generalized) Difficulty walking Difficulty in walking [facility] Diagnosis 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 Muscle weakness (generalized) [facility] Diagnosis 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 Muscle weakness (generalized) [facility] Diagnosis 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 Muscle weakness (generalized) [facility] Diagnosis Intradural tumor- Primary 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 Muscle weakness (generalized) [facility] Diagnosis Intradural tumor- Primary 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 Difficulty walking Difficulty in walking Muscle weakness (generalized) [facility] Diagnosis 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 Left arm weakness Other musculoskeletal symptoms referable to limbs Muscle weakness (generalized) [facility] Diagnosis Left arm weakness- Primary Other musculoskeletal symptoms referable to limbs [facility] Diagnosis Left arm weakness- Primary Other musculoskeletal symptoms referable to limbs 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 [facility] Diagnosis Left arm weakness- Primary Other musculoskeletal symptoms referable to limbs [facility] Diagnosis Left arm weakness- Primary Other musculoskeletal symptoms referable to limbs Pain in joint of left shoulder Pain in joint, shoulder region [facility] Diagnosis Left arm weakness- Primary Other musculoskeletal symptoms referable to limbs Pain in joint of left shoulder Pain in joint, shoulder region 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 [facility] Diagnosis Intradural tumor- Primary 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 [facility] Diagnosis Neck pain- Primary Cervicalgia documented in this encounter [facility]* Diagnosis Neck pain Cervicalgia documented in this encounter [facility] note* Diagnosis Acute pain of left shoulder- Primary 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 documented in this encounter [facility] note* Diagnosis Preoperative examination- Primary Preoperative examination, unspecified Osteomyelitis of knee region (HCC) Unspecified osteomyelitis, lower leg Alcohol consumption of four to five drinks per day Preoperative examination- Primary Preoperative examination, unspecified Pre-op evaluation Preoperative examination, unspecified Former smoker Personal history of tobacco use, presenting hazards to health Excessive drinking of alcohol Alcohol abuse, unspecified 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 documented in this encounter [facility] note* Diagnosis Preoperative examination- Primary Preoperative examination, unspecified Osteomyelitis of knee region (HCC) Unspecified osteomyelitis, lower leg Alcohol consumption of four to five drinks per day Preoperative examination- Primary Preoperative examination, unspecified Pre-op evaluation Preoperative examination, unspecified Former smoker Personal history of tobacco use, presenting hazards to health Excessive drinking of alcohol Alcohol abuse, unspecified 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 documented in this encounter [facility] for referral (narrative)* Outpatient Procedure (Routine) - Closed Specialty Diagnoses / Procedures Referred By [place] t Referred To [facility] Diagnoses Preoperative examination Procedures ECG COMPLETE ECG ROUTINE ECG W/LEAST 12 LDS W/I&R Bonnie Marinelli PA-C [address] [address] [facility] [place] [address] [place] [address] Referral ID Status Reason Start Date Expiration Date V isits Requested Visits Authorized [id number] Closed Auto-Generate d Referral 07/23/2022 07/23/2023 1 1 [facility] for referral (narrative)* Diagnostic Procedure Only (Routine) - Pending Review Specialty Diagnoses / Procedures Referred By Contac t Referred To Contact XR IMAGING Diagnoses Neck pain Procedures XR SHOULDER LIMITED 2V AP/TRUE AP LEFT RADEX SHOULDER COMPLETE MINIMUM 2 [place] [address] [place] [phone] [place] [address] Referral ID Status Reason Start Date Expiration Date Visits Requested Visits Authorized [id number] Pending Review Auto-Generat ed Referral 3 03/18/2024 1 1 * MRI/CT (Routine) - Authorized Specialty Diagnoses / Procedures Referred By Contac t Referred To Contact MR IMAGING Diagnoses Neck pain Procedures MRI CERVICAL SPINE WO/W IVCON MRI SPINAL CANAL CERVICAL W/O & [place] [address] [place] [address] [place] [address] Referral ID Status Reason Start Date Expiration Date Visits Requested Visits Authorized [id number] Authorized Auto-Generat ed Referral 3 03/18/2024 1 1 [facility] for referral (narrative)* Diagnostic Procedure Only (Routine) - Closed Specialty Diagnoses / Procedures Referred By Contac t Referred To Contact XR IMAGING Diagnoses Neck pain Procedures XR SHOULDER LIMITED 2V AP/TRUE AP LEFT RADEX SHOULDER COMPLETE MINIMUM 2 [place] [address] [place] [phone] [place] [address] Referral ID Status Reason Start Date Expiration Date V isits Requested Visits Authorized [id number] Closed Auto-Generate d Referral 02/17/2023 03/18/2024 1 1 [facility] Diagnostic Procedure Only (Routine) - Closed Specialty Diagnoses / Procedures Referred By Contac t Referred To Contact XR IMAGING Diagnoses Neck pain Procedures XR SHOULDER LIMITED 2V AP/TRUE AP LEFT RADEX SHOULDER COMPLETE MINIMUM 2 [place] [address] [place] [address] [place] [address] Referral ID Status Reason Start Date Expiration Date V isits Requested Visits Authorized [id number] Closed Auto-Generate d Referral 02/17/2023 03/18/2024 1 1 [facility] Summary Purpose Family History No Family History Records FoundNo Family History Records FoundNo Family History Records FoundNo Family History Records FoundNo Family History Records FoundNo Family History Records Found Advance Directives No Advanced Directives Records FoundDocuments on File Type Date 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 Advance Directive(s) 10/07/2018 10:36 AM Date Activated Date Inactivated Comments 10/24/2018 2:26 PM 08/22/2022 6:06 AM Latest Code Status on File Code Status Date Activated Date Inactivated Comments Full Code 10/24/2018 2:26 PM Documents on File Type Date 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 Advance Directive(s) 10/07/2018 10:36 AM Latest Code Status on File Code Status Date Activated Date Inactivated Comments Full Code 10/24/2018 2:26 PM Latest Code Status on File Code Status Date Activated Date Inactivated Comments Full Code 10/24/2018 2:26 PM 08/22/2022 6:06 AM Latest Code Status on File Code Status Date Activated Date Inactivated Comments Full Code 10/24/2018 2:26 PM 08/22/2022 6:06 AM Latest Code Status on File Code Status Date Activated Date Inactivated Comments Full Code 10/24/2018 2:26 PM 08/22/2022 6:06 AM Latest Code Status on File Code Status Date Activated Date Inactivated Comments Full Code 10/24/2018 2:26 PM 08/22/2022 6:06 AM Date Activated Date Inactivated Comments 10/24/2018 2:26 PM 08/22/2022 6:06 AM Reason for Referral Specialty Diagnoses / Procedures Referred By Contac t Referred To Contact Diagnoses Pre-op evaluation Procedures REFER TO PACC - PRE ANESTHESIA CONSULTATION CLINIC OFFICE/OUTPATIENT NEW HIGH MDM 60-74 MINUTES Haylee Gay, [facility] [address] [place] [address] Referral ID Status Reason Start Date Expiration Date Visits Requested Visits Authorized [id number] Authorized PCP Requested Referral 07/18/2022 07/18/2023 1 1 Specialty Diagnoses / Procedures Referred By Contac t Referred To Contact CT IMAGING Diagnoses Intradural extramedullary spinal tumor Localized swelling, mass or lump of neck Procedures CTA NECK W IVCON CT ANGIOGRAPHY NECK W/CONTRAST/[place] [address] [place] [address] Ct Imaging Referral ID Status Reason Start Date Expiration Date Visits Requested Visits Authorized [id number] Pending Review Auto-Generat ed Referral 07/18/2022 08/17/2023 1 1 Specialty Diagnoses / Procedures Referred By Contac t Referred To Contact CT IMAGING Diagnoses Localized swelling, mass or lump of neck Procedures CTA HEAD W IVCON CT ANGIOGRAPHY HEAD W/CONTRAST/[place] [address] [place] [address] Ct Imaging Referral ID Status Reason Start Date Expiration Date Visits Requested Visits Authorized [id number] Pending Review Auto-Generat ed Referral 07/18/2022 08/17/2023 1 1 Specialty Diagnoses / Procedures Referred By Contac t Referred To Contact MR IMAGING Diagnoses Intradural extramedullary spinal tumor Procedures MRI CERVICAL SPINE WO/W IVCON MRI SPINAL CANAL CERVICAL W/O & W/[place] [address] [place] [address] Mr Imaging Referral ID Status Reason Start Date Expiration Date Visits Requested Visits Authorized [id number] Authorized Auto-Generat ed Referral 07/18/2022 08/17/2023 1 1 Referral ID Status Reason Start Date Expiration Date V isits Requested Visits Authorized [id number] Closed Auto-Generate d Referral 07/18/2022 08/17/2023 1 1 Specialty Diagnoses / Procedures Referred By Contac t Referred To Contact [facility] Diagnoses H/O cervical spine surgery Intradural tumor Procedures CONSULT TO PHYSICAL THERAPY PHYSICAL THERAPY EVALUATION HIGH COMPLEX 45 MINS Haylee Gay PA-C [address] [place] [address] [facility] [address] [address] Referral ID Status Reason Start Date Expiration Date Visits Requested Visits Authorized [id number] Pending Review Auto-Generat ed Referral 08/26/2022 08/26/2023 1 1 Specialty Diagnoses / Procedures Referred By Contac t Referred To Contact 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 CONSULT TO PHYSICAL THERAPY PHYSICAL THERAPY EVALUATION HIGH COMPLEX 45 MINS Sam Pichardo MD [place] [phone] Chidi Quiñones, PT [address] [place] [address] Referral ID Status Reason Start Date Expiration Date Visits Requested Visits Authorized [id number] Pending Review Auto-Generat ed Referral 09/02/2022 09/02/2023 1 1 Specialty Diagnoses / Procedures Referred By Contac t Referred To Contact [facility] Diagnoses Intradural tumor Intradural extramedullary spinal tumor Difficulty walking Muscle weakness (generalized) Procedures PT REHAB FOLLOW UP ORDER THERAPEUTIC EXERCISES RE, EA 15 MIN[address] [place] [address] [place] [address] [facility] [place] [address] Referral ID Status Reason Start Date Expiration Date Visits Requested Visits Authorized [id number] Pending Review PCP Requested Referral Auto-Generate d Referral 11/11/2022 02/09/2023 1 1 Specialty Diagnoses / Procedures Referred By Contac t Referred To Contact MR IMAGING Diagnoses Neck pain Procedures MRI CERVICAL SPINE WO/W IVCON MRI SPINAL CANAL CERVICAL W/O & W/[place] [address] [place] [phone] Mr [facility] [place] [address] Referral ID Status Reason Start Date Expiration Date V isits Requested Visits Authorized [id number] Closed Auto-Generate d Referral 02/17/2023 03/18/2024 1 1 Specialty Diagnoses / Procedures Referred By Contac t Referred To Contact Orthopedics Diagnoses Acute pain of left shoulder Procedures CONSULT PANEL TO ORTHOPAEDICS OFFICE/OUTPATIENT [facility] HIGH MDM 60-74 MINUTES Kaia Wilcox PA-C [address] [place] [id number] Referral ID Status Reason Start Date Expiration Date Visits Requested Visits Authorized [id number] Authorized PCP Requested Referral 3 03/09/2024 1 1 Specialty Diagnoses / Procedures Referred By Contac t Referred To Contact MR IMAGING Diagnoses Intradural extramedullary spinal tumor Procedures MRI CERVICAL SPINE WO/W IVCON MRI SPINAL CANAL CERVICAL W/[place] & [place] [address] [place] [phone] Mr Imaging [place] [address] Referral ID Status Reason Start Date Expiration Date Visits Requested Visits Authorized [id number] Authorized Auto-Generat ed Referral 4 04/07/2025 1 1 Additional Source Comments (unrecognized sect ion and content) No Status Records FoundNo Status Records FoundNo Status Records FoundNo Status Records FoundNo Status Records FoundNo Status Records Found INFORMATION SOURCE (unrecogn ized section and content) DATE CREATED AUTHOR 12/14/2018 [facility] DATE CREATED AUTHOR AUTHOR'S ORGANIZ ATION 07/07/2022 [facility] DATE CREATED AUTHOR AUTHOR'S ORGANIZ ATION 07/28/2022 [facility] DATE CREATED AUTHOR AUTHOR'S ORGANIZ ATION 04/14/2023 [facility] DATE CREATED AUTHOR AUTHOR'S ORGANIZ ATION 05/05/2024 [facility] DATE CREATED AUTHOR AUTHOR'S ORGANIZ ATION 05/09/2024 [facility] l Source Comments (unrecognize d section and content) In the event this informatio n is protected by the Federal Confidentiality of Alcohol and Drug Abuse Patient Records regulations: The Federal rules restrict any use of the information to criminally investigate or prosecute any alcohol or drug abuse patient.[facility] the event this information is protected by the Federal Confidentiality of Alcohol and Drug Abuse Patient Records regulations: The Federal rules restrict any use of the information to criminally investigate or prosecute any alcohol or drug abuse patient.[facility] HospitalIn the event this information is protected by the Federal Confidentiality of Alcohol and Drug Abuse Patient Records regulations: The Federal rules restrict any use of the information to criminally investigate or prosecute any alcohol or drug abuse patient.[facility]In the event this information is protected by the Federal Confidentiality of Alcohol and Drug Abuse Patient Records regulations: The Federal rules restrict any use of the information to criminally investigate or prosecute any alcohol or drug abuse patient.[facility] HospitalIn the event this information is protected by the Federal Confidentiality of Alcohol and Drug Abuse Patient Records regulations: The Federal rules restrict any use of the information to criminally investigate or prosecute any alcohol or drug abuse patient.[facility] HospitalIn the event this information is protected by the Federal Confidentiality of Alcohol and Drug Abuse Patient Records regulations: The Federal rules restrict any use of the information to criminally investigate or prosecute any alcohol or drug abuse patient.[facility] HospitalIn the event this information is protected by the Federal Confidentiality of Alcohol and Drug Abuse Patient Records regulations: The Federal rules restrict any use of the information to criminally investigate or prosecute any alcohol or drug abuse patient.[facility] HospitalIn the event this information is protected by the Federal Confidentiality of Alcohol and Drug Abuse Patient Records regulations: The Federal rules restrict any use of the information to criminally investigate or prosecute any alcohol or drug abuse patient.[facility] HospitalIn the event this information is protected by the Federal Confidentiality of Alcohol and Drug Abuse Patient Records regulations: The Federal rules restrict any use of the information to criminally investigate or prosecute any alcohol or drug abuse patient.[facility] Hospital[facility] the event this information is protected by the Federal Confidentiality of Alcohol and Drug Abuse Patient Records regulations: The Federal rules restrict any use of the information to criminally investigate or prosecute any alcohol or drug abuse patient.[facility] HospitalIn the event this information is protected by the Federal Confidentiality of Alcohol and Drug Abuse Patient Records regulations: The Federal rules restrict any use of the information to criminally investigate or prosecute any alcohol or drug abuse patient.[facility] HospitalIn the event this information is protected by the Federal Confidentiality of Alcohol and Drug Abuse Patient Records regulations: The Federal rules restrict any use of the information to criminally investigate or prosecute any alcohol or drug abuse patient.[facility] HospitalIn the event this information is protected by the Federal Confidentiality of Alcohol and Drug Abuse Patient Records regulations: The Federal rules restrict any use of the information to criminally investigate or prosecute any alcohol or drug abuse patient.[facility] HospitalIn the event this information is protected by the Federal Confidentiality of Alcohol and Drug Abuse Patient Records regulations: The Federal rules restrict any use of the information to criminally investigate or prosecute any alcohol or drug abuse patient.[facility] HospitalIn the event this information is protected by the Federal Confidentiality of Alcohol and Drug Abuse Patient Records regulations: The Federal rules restrict any use of the information to criminally investigate or prosecute any alcohol or drug abuse patient.[facility] HospitalIn the event this information is protected by the Federal Confidentiality of Alcohol and Drug Abuse Patient Records regulations: The Federal rules restrict any use of the information to criminally investigate or prosecute any alcohol or drug abuse patient.[facility] HospitalIn the event this information is protected by the Federal Confidentiality of Alcohol and Drug Abuse Patient Records regulations: The Federal rules restrict any use of the information to criminally investigate or prosecute any alcohol or drug abuse patient.[facility] HospitalIn the event this information is protected by the Federal Confidentiality of Alcohol and Drug Abuse Patient Records regulations: The Federal rules restrict any use of the information to criminally investigate or prosecute any alcohol or drug abuse patient.[facility] HospitalIn the event this information is protected by the Federal Confidentiality of Alcohol and Drug Abuse Patient Records regulations: The Federal rules restrict any use of the information to criminally investigate or prosecute any alcohol or drug abuse patient.[facility] HospitalIn the event this information is protected by the Federal Confidentiality of Alcohol and Drug Abuse Patient Records regulations: The Federal rules restrict any use of the information to criminally investigate or prosecute any alcohol or drug abuse patient.[facility] HospitalIn the event this information is protected by the Federal Confidentiality of Alcohol and Drug Abuse Patient Records regulations: The Federal rules restrict any use of the information to criminally investigate or prosecute any alcohol or drug abuse patient.[facility] HospitalIn the event this information is protected by the Federal Confidentiality of Alcohol and Drug Abuse Patient Records regulations: The Federal rules restrict any use of the information to criminally investigate or prosecute any alcohol or drug abuse patient.[facility] HospitalIn the event this information is protected by the Federal Confidentiality of Alcohol and Drug Abuse Patient Records regulations: The Federal rules restrict any use of the information to criminally investigate or prosecute any alcohol or drug abuse patient.[facility] HospitalIn the event this information is protected by the Federal Confidentiality of Alcohol and Drug Abuse Patient Records regulations: The Federal rules restrict any use of the information to criminally investigate or prosecute any alcohol or drug abuse patient.[facility] HospitalIn the event this information is protected by the Federal Confidentiality of Alcohol and Drug Abuse Patient Records regulations: The Federal rules restrict any use of the information to criminally investigate or prosecute any alcohol or drug abuse patient.[facility] HospitalIn the event this information is protected by the Federal Confidentiality of Alcohol and Drug Abuse Patient Records regulations: The Federal rules restrict any use of the information to criminally investigate or prosecute any alcohol or drug abuse patient.[facility] HospitalIn the event this information is protected by the Federal Confidentiality of Alcohol and Drug Abuse Patient Records regulations: The Federal rules restrict any use of the information to criminally investigate or prosecute any alcohol or drug abuse patient.[facility] HospitalIn the event this information is protected by the Federal Confidentiality of Alcohol and Drug Abuse Patient Records regulations: The Federal rules restrict any use of the information to criminally investigate or prosecute any alcohol or drug abuse patient.[facility] the event this information is protected by the Federal Confidentiality of Alcohol and Drug Abuse Patient Records regulations: The Federal rules restrict any use of the information to criminally investigate or prosecute any alcohol or drug abuse patient.[facility] HospitalIn the event this information is protected by the Federal Confidentiality of Alcohol and Drug Abuse Patient Records regulations: The Federal rules restrict any use of the information to criminally investigate or prosecute any alcohol or drug abuse patient.[facility] HospitalIn the event this information is protected by the Federal Confidentiality of Alcohol and Drug Abuse Patient Records regulations: The Federal rules restrict any use of the information to criminally investigate or prosecute any alcohol or drug abuse patient.[facility]In the event this information is protected by the Federal Confidentiality of Alcohol and Drug Abuse Patient Records regulations: The Federal rules restrict any use of the information to criminally investigate or prosecute any alcohol or drug abuse patient.[facility] HospitalIn the event this information is protected by the Federal Confidentiality of Alcohol and Drug Abuse Patient Records regulations: The Federal rules restrict any use of the information to criminally investigate or prosecute any alcohol or drug abuse patient.[facility] HospitalIn the event this information is protected by the Federal Confidentiality of Alcohol and Drug Abuse Patient Records regulations: The Federal rules restrict any use of the information to criminally investigate or prosecute any alcohol or drug abuse patient.[facility] Reason for Visit (unrecogniz ed section and content) Reason Comments Physical Therapy Specialty Diagnoses / Procedures Referred By Contac t Referred To Contact 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 CONSULT TO PHYSICAL THERAPY PHYSICAL THERAPY EVALUATION HIGH COMPLEX [address] [place] [address] [place] [address] Chidi Quiñones, PT [address] [place] [address] Referral ID Status Reason Start Date Expiration Date Visits Requested Visits Authorized [id number] Authorized Auto-Generat ed Referral 09/02/2022 01/27/2023 1 21 Reason Comments Physical Therapy PT Progress Note Referral ID Status Reason Start Date Expiration Date Visits Requested Visits Authorized [id number] Authorized Auto-Generat ed Referral 09/02/2022 12/09/2022 1 11 Reason Onset Date Comments Orders 07/11/2022 Reason Comments New Patient Reason Comments Anesthesia Consult Specialty Diagnoses / Procedures Referred By Contac t Referred To Contact Diagnoses Pre-op evaluation Procedures REFER TO PACC - PRE ANESTHESIA CONSULTATION CLINIC OFFICE/OUTPATIENT NEW HIGH MDM 60-74 MINUTES Haylee Gay PA-C [address] [place] [id number] Referral ID Status Reason Start Date Expiration Date V isits Requested Visits Authorized [id number] Closed PCP Requested Referral 07/18/2022 07/18/2023 1 1 Specialty Diagnoses / Procedures Referred By Contac t Referred To Contact MR IMAGING Diagnoses Intradural extramedullary spinal tumor Procedures MRI CERVICAL SPINE WO/W IVCON MRI SPINAL CANAL CERVICAL W/O & W/[place] [address] [place] [phone] Mr Imaging Referral ID Status Reason Start Date Expiration Date V isits Requested Visits Authorized [id number] Closed Auto-Generate d Referral 07/18/2022 08/17/2023 1 1 Reason Comments Follow Up Post op follow up Reason Comments Physical Therapy Referral ID Status Reason Start Date Expiration Date V isits Requested Visits Authorized [id number] Closed Auto-Generate d Referral 09/02/2022 12/09/2022 1 11 Reason Onset Date Comments Refill Request 10/21/2022 Reason Comments PT Progress Note Specialty Diagnoses / Procedures Referred By Contac t Referred To Contact 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 CONSULT TO PHYSICAL THERAPY PHYSICAL THERAPY EVALUATION HIGH COMPLEX [address] [place] [address] [place] [address] Chidi Quiñones, PT [address] [place] [address] Reason Comments Patient Question Reason Comments Post Op Question Reason Comments Follow Up Pt has some concerns with his left shoulder and arm Specialty Diagnoses / Procedures Referred By Contac t Referred To Contact MR IMAGING Diagnoses Neck pain Procedures MRI CERVICAL SPINE WO/W IVCON MRI SPINAL CANAL CERVICAL W/O & [place] [address] [place] [address] [place] [address] Referral ID Status Reason Start Date Expiration Date V isits Requested Visits Authorized [id number] Closed Auto-Generate d Referral 02/17/2023 03/18/2024 1 1 Reason Comments Follow Up Specialty Diagnoses / Procedures Referred By Contac t Referred To Contact MR IMAGING Diagnoses Intradural extramedullary spinal tumor Procedures MRI CERVICAL SPINE WO/W IVCON MRI SPINAL CANAL CERVICAL W/O & [place] [address] [place] [address] [place] [address] Referral ID Status Reason Start Date Expiration Date V isits Requested Visits Authorized [id number] Closed Auto-Generate d Referral 03/08/2024 04/07/2025 1 1 Reason Comments Results Care Teams (unrecognized sec tion and content) Operations And Maintenance Manager Relationship Specialty Start Date End Date João Michael, REVIEW SCHEDULING COORDINATOR.WALLPAPER CONSULTANT [address] [address] PCP - General Family Medicine 11/15/17 Ross Bhardwaj MD [address] [id number] Home Care Provider Orthopedics 10/22/18 Zee Frank, RN [address] [place] [address] Supervisor Drying Post Acute Care 10/23/18 Gilberto Bergman [address] [place] [address] Consulting Infectious Diseases 12/12/18 Operations And Maintenance Manager Relationship Specialty Start Date End Date João Michael APRN.WALLPAPER CONSULTANT [address] [place] [address] PCP - General Family Medicine 11/15/17 Ross Bhardwaj MD [address] [address] Home Care Provider Orthopedics 10/22/18 Monika July, RN [address] [place] [address] Supervisor Drying Post Acute Care 10/23/18 [facility] Gilberto [address] [place] [address] Consulting Infectious Diseases 12/12/18 Operations And Maintenance Manager Relationship Specialty Start Date End Date João Michael, REVIEW SCHEDULING COORDINATOR.WALLPAPER CONSULTANT [address] [place] [address] PCP - General Family Medicine 11/15/17 Ross Bhardwaj MD [address] [address] Home Care Provider Orthopedics 10/22/18 Monika July, RN [address] [place] [address] Supervisor Drying Post Acute Care 10/23/18 [facility] Gilberto [address] [place] [address] Consulting Infectious Diseases 12/12/18 Operations And Maintenance Manager Relationship Specialty Start Date End Date João Michael, REVIEW SCHEDULING COORDINATOR.WALLPAPER CONSULTANT [address] [place] [address] PCP - General Family Medicine 11/15/17 Ross Bhardwaj MD [address] [address] Home Care Provider Orthopedics 10/22/18 Zee Frank, RN [address] [place] [address] Supervisor Drying Post Acute Care 10/23/18 MadalynDianaGilberto [address] [place] [address] Consulting Infectious Diseases 12/12/18 Operations And Maintenance Manager Relationship Specialty Start Date End Date João Michael, REVIEW SCHEDULING COORDINATOR.WALLPAPER CONSULTANT [address] [facility] [address] [place] [address] PCP - General Family Medicine 11/15/17 Ross Bhardwaj MD [address] [address] Home Care Provider Orthopedics 10/22/18 Zee Frank, RN [address] [place] [address] Supervisor Drying Post Acute Care 10/23/18 [facility] [address] [place] [address] Consulting Infectious Diseases 12/12/18 Operations And Maintenance Manager Relationship Specialty Start Date End Date João Michael, REVIEW SCHEDULING COORDINATOR.WALLPAPER CONSULTANT [address] [address] PCP - General Family Medicine 11/15/17 Ross Bhardwaj MD [address] [address] Home Care Provider Orthopedics 10/22/18 Zee Frank, TATIANA [address] [place] [address] Supervisor Drying Post Acute Care 10/23/18 [facility] [address] [place] [address] Consulting Infectious Diseases 12/12/18 Operations And Maintenance Manager Relationship Specialty Start Date End Date João Michael, REVIEW SCHEDULING COORDINATOR.WALLPAPER CONSULTANT [address] [place] [address] PCP - General Family Medicine 11/15/17 Ross Bhardwaj MD [address] [address] Home Care Provider Orthopedics 10/22/18 Monika Zee, RN [address] [place], [place] [id number] Supervisor Drying Post Acute Care 10/23/18 [facility] [address] [place] [address] Consulting Infectious Diseases 12/12/18 Operations And Maintenance Manager Relationship Specialty Start Date End Date João Michael, REVIEW SCHEDULING COORDINATOR.WALLPAPER CONSULTANT [address] [place] [address] PCP - General Family Medicine 11/15/17 Ross Bhardwaj MD [address] [address] Home Care Provider Orthopedics 10/22/18 Monika July, RN [address] [place] [address] Supervisor Drying Post Acute Care 10/23/18 [facility] Gilberto [address] [place] [address] Consulting Infectious Diseases 12/12/18 Operations And Maintenance Manager Relationship Specialty Start Date End Date João Michael, REVIEW SCHEDULING COORDINATOR.WALLPAPER CONSULTANT [address] [place] [address] PCP - General Family Medicine 11/15/17 Ross Bhardwaj MD [address] [address] Home Care Provider Orthopedics 10/22/18 Zee Frank, TATIANA [address] [place] [address] Supervisor Drying Post Acute Care 10/23/18 MadalynDianaGilberto [address] [place] [address] Consulting Infectious Diseases 12/12/18 Operations And Maintenance Manager Relationship Specialty Start Date End Date João Michael, REVIEW SCHEDULING COORDINATOR.WALLPAPER CONSULTANT [address] [facility] [address] [place] [address] PCP - General Family Medicine 11/15/17 Ross Bhardwaj MD [address] [address] Home Care Provider Orthopedics 10/22/18 Zee Frank, TATIANA [address] [place] [address] Supervisor Drying Post Acute Care 10/23/18 [facility] [address] [place] [address] Consulting Infectious Diseases 12/12/18 Operations And Maintenance Manager Relationship Specialty Start Date End Date João Michael, REVIEW SCHEDULING COORDINATOR.WALLPAPER CONSULTANT [address] [address] PCP - General Family Medicine 11/15/17 Ross Bhardwaj MD [address] [address] Home Care Provider Orthopedics 10/22/18 Zee Frank, TATIANA [address] [place] [address] Supervisor Drying Post Acute Care 10/23/18 [facility] [address] [place] [address] Consulting Infectious Diseases 12/12/18 Operations And Maintenance Manager Relationship Specialty Start Date End Date João Michael, REVIEW SCHEDULING COORDINATOR.WALLPAPER CONSULTANT [address] [place] [address] PCP - General Family Medicine 11/15/17 Ross Bhardwaj MD [address] [address] Home Care Provider Orthopedics 10/22/18 Zee Frank, RN [address] [place] [address] Supervisor Drying Post Acute Care 10/23/18 [facility] [address] [place] [address] Consulting Infectious Diseases 12/12/18 Operations And Maintenance Manager Relationship Specialty Start Date End Date João Michael, REVIEW SCHEDULING COORDINATOR.WALLPAPER CONSULTANT [address] [place] [address] PCP - General Family Medicine 11/15/17 Ross Bhardwaj MD [address] [address] Home Care Provider Orthopedics 10/22/18 Zee Frank, TATIANA [address] [place] [address] Supervisor Drying Post Acute Care 10/23/18 [facility] [address] [place] [address] Consulting Infectious Diseases 12/12/18 Operations And Maintenance Manager Relationship Specialty Start Date End Date João Michael, REVIEW SCHEDULING COORDINATOR.WALLPAPER CONSULTANT [address] [place] [address] PCP - General Family Medicine 11/15/17 Ross Bhardwaj MD [address] [address] Home Care Provider Orthopedics 10/22/18 Zee Frank RN [address] [place] [address] Supervisor Drying Post Acute Care 10/23/18 MadalynDianaGilberto [address] [place] [address] Consulting Infectious Diseases 12/12/18 Operations And Maintenance Manager Relationship Specialty Start Date End Date João Michael, REVIEW SCHEDULING COORDINATOR.WALLPAPER CONSULTANT [address] [place] [address] PCP - General Family Medicine 11/15/17 Ross Bhardwaj MD [address] [address] Home Care Provider Orthopedics 10/22/18 Zee Frank RN [address] [place] [address] Supervisor Drying Post Acute Care 10/23/18 MadalynGilberto smith [address] [place] [address] Consulting Infectious Diseases 12/12/18 Operations And Maintenance Manager Relationship Specialty Start Date End Date João Michael, REVIEW SCHEDULING COORDINATOR.WALLPAPER CONSULTANT [address] [place] [address] PCP - General Family Medicine 11/15/17 Ross Bhardwaj MD [address] [address] Home Care Provider Orthopedics 10/22/18 Zee Frank RN [address] [place] [address] Supervisor Drying Post Acute Care 10/23/18 Gilberto Bergman [address] [place] [address] Consulting Infectious Diseases 12/12/18 Operations And Maintenance Manager Relationship Specialty Start Date End Date João Michael, REVIEW SCHEDULING COORDINATOR.WALLPAPER CONSULTANT [address] [address] PCP - General Family Medicine 11/15/17 Ross Bhardwaj MD [address] [address] Home Care Provider Orthopedics 10/22/18 Monika July, TATIANA [address] [place] [address] Supervisor Drying Post Acute Care 10/23/18 Gilberto Bergman [address] [place] [address] Consulting Infectious Diseases 12/12/18 Operations And Maintenance Manager Relationship Specialty Start Date End Date João Michael, REVIEW SCHEDULING COORDINATOR.WALLPAPER CONSULTANT [address] [address] PCP - General Family Medicine 11/15/17 Ross Bhardwaj MD [address] [address] Home Care Provider Orthopedics 10/22/18 Monika Zee, TATIANA [place], [place] [id number] Supervisor Drying Post Acute Care 10/23/18 Gilberto Bergman [address] [place] [address] Consulting Infectious Diseases 12/12/18 Operations And Maintenance Manager Relationship Specialty Start Date End Date João Michael, REVIEW SCHEDULING COORDINATOR.WALLPAPER CONSULTANT [address] [address] PCP - General Family Medicine 11/15/17 Ross Bhardwaj MD [address] [address] [address] Home Care Provider Orthopedics 10/22/18 Monika Zee, RN [place] [address] Supervisor Drying Post Acute Care 10/23/18 Gilberto Bergman [address] [place] [address] Consulting Infectious Diseases 12/12/18 Operations And Maintenance Manager Relationship Specialty Start Date End Date João Michael, REVIEW SCHEDULING COORDINATOR.WALLPAPER CONSULTANT [address] [address] PCP - General Family Medicine 11/15/17 Ross Bhardwaj MD [address] [address] Home Care Provider Orthopedics 10/22/18 Zee Frank, RN [address] [place], [place] [id number] Supervisor Drying Post Acute Care 10/23/18 Gilberto Bergman [address] [place] [address] Consulting Infectious Diseases 12/12/18 Operations And Maintenance Manager Relationship Specialty Start Date End Date João Michael, REVIEW SCHEDULING COORDINATOR.WALLPAPER CONSULTANT [address] [address] PCP - General Family Medicine 11/15/17 Ross Bhardwaj MD [address] [address] Home Care Provider Orthopedics 10/22/18 Zee Frank, TAITANA [address] [place] [address] Supervisor Drying Post Acute Care 10/23/18 Gilberto Bergman [address] [place] [address] Consulting Infectious Diseases 12/12/18 Operations And Maintenance Manager Relationship Specialty Start Date End Date João Michael, REVIEW SCHEDULING COORDINATOR.WALLPAPER CONSULTANT [address] [address] PCP - General Family Medicine 11/15/17 Ross Bhardwaj MD [address] [address] Home Care Provider Orthopedics 10/22/18 Zee Frank, TATIANA [address] [place] [address] Supervisor Drying Post Acute Care 10/23/18 Gilberto Bergman [address] [place] [address] Consulting Infectious Diseases 12/12/18 Operations And Maintenance Manager Relationship Specialty Start Date End Date João Michael, REVIEW SCHEDULING COORDINATOR.WALLPAPER CONSULTANT [address] [facility] [address] [place] [address] PCP - General Family Medicine 11/15/17 Ross Bhardwaj MD [address] [address] Home Care Provider Orthopedics 10/22/18 Zee Frank, RN [address] [place] [address] Supervisor Drying Post Acute Care 10/23/18 MadalynDianaGilberto [address] [place] [address] Consulting Infectious Diseases 12/12/18 Operations And Maintenance Manager Relationship Specialty Start Date End Date João Michael, REVIEW SCHEDULING COORDINATOR.WALLPAPER CONSULTANT [address] [place] [address] PCP - General Family Medicine 11/15/17 Ross Bhardwaj MD [address] [address] Home Care Provider Orthopedics 10/22/18 Zee Frank, TATIANA [address] [place] [address] Supervisor Drying Post Acute Care 10/23/18 MadalynDianaGilberto [address] [place] [address] Consulting Infectious Diseases 12/12/18 Operations And Maintenance Manager Relationship Specialty Start Date End Date João Michael, REVIEW SCHEDULING COORDINATOR.WALLPAPER CONSULTANT [address] [place] [address] PCP - General Family Medicine 11/15/17 Ross Bhardwaj MD [address] [address] Home Care Provider Orthopedics 10/22/18 Zee Frank RN [address] [facility], [place] [id number] Supervisor Drying Post Acute Care 10/23/18 Gilberto Bergman [address] [place] [address] Consulting Infectious Diseases 12/12/18 Operations And Maintenance Manager Relationship Specialty Start Date End Date João Michael, REVIEW SCHEDULING COORDINATOR.WALLPAPER CONSULTANT [address] [address] PCP - General Family Medicine 11/15/17 Ross Bhardwaj MD [address] [address] Home Care Provider Orthopedics 10/22/18 Zee Frank RN [address] [place] [address] Supervisor Drying Post Acute Care 10/23/18 Gilberto Bergman [address] [place] [address] Consulting Infectious Diseases 12/12/18 Operations And Maintenance Manager Relationship Specialty Start Date End Date João Michael, REVIEW SCHEDULING COORDINATOR.WALLPAPER CONSULTANT [address] [address] PCP - General Family Medicine 11/15/17 Ross Bhardwaj MD [address] [address] Home Care Provider Orthopedics 10/22/18 Zee Frank RN [address] [place], [place] [id number] Supervisor Drying Post Acute Care 10/23/18 Gilberto Bergman [address] [place] [address] Consulting Infectious Diseases 12/12/18 Operations And Maintenance Manager Relationship Specialty Start Date End Date João Michael, CLARISSA.RHONDA [address] [facility] [address] [place] [address] PCP - General Family Medicine 11/15/17 Ross Bhardwaj MD [address] [address] Home Care Provider Orthopedics 10/22/18 Zee Frank, RN [address] [place] [address] Supervisor Drying Post Acute Care 10/23/18 Gilberto Bergman [address] [place] [address] Consulting Infectious Diseases 12/12/18 FOR RECORDS PERTAINING TO PATIENTS WHO ARE OR HAVE BEEN ENROLLED IN A CHEMICAL DEPENDENCY/SUBSTANCEABUSE PROGRAM, SOME INFORMATION MAY BE OMITTED. This clinical summary was aggregated from multiple sources. Caution should be exercised in using it in the provision of clinical care. This summary normalizes information from multiple sources, and as a consequence, information in this document may materially change the coding, format and clinical context of patient data. In addition, data may be omitted in some cases. CLINICAL DECISIONS SHOULD BE BASED ON THE PRIMARY CLINICAL RECORDS. [facility] [employer] provides no warranty or guarantee of the accuracy or completeness of information in this document.
[2025-03-07 22:38] LABS: Hematocrit 41.6 % (40-54); Hemoglobin 13.6 g/dL (13.0-16.5); Immature Granulocytes Count 0.020 X10^3/uL (0.0-0.0); Mean Corp Hgb Conc 32.7 g/dL (32-36); Mean Corpuscular Volume 94.3 fL (80-94); Mean Platelet Vol. 10.3 fl (6.2-12.0); NRBC Flagged by Analyzer 0 % (0-5); Platelet Count 201 K/mm3 (150-450); RBC Distribution Width CV 12.9 % (11.6-14.6); RBC Distribution Width SD 44.8 fl (35.1-43.9); Red Blood Count 4.41 M/mm3 (4.6-6.2); White Blood Count 4.5 K/mm3 (4.4-11.0)
[2025-03-07 22:53] LABS: AST(SGOT) 21 U/L (<=37); Alanine Aminotransfer ALT/SGPT 19 U/L (<=46); Albumin, Serum 4.4 g/dL (3.4-4.8); Alkaline Phosphatase 55 U/L (40-129); Anion Gap 10 (5-15); BUN 16 mg/dL (4-19); BUN/Creat Ratio 16.8 RATIO (10-20); Calcium,Total 9.1 mg/dL (7.6-11.0); Carbon Dioxide 26.6 mmol/L (21.0-32.0); Chloride 102 mmol/L (98-108); Cholesterol 202 mg/dL (<=200); Globulin 2.1 g/dL (2.2-4.2); Glucose 95 mg/dL (70-99); Low Density Lipoprotein Calc. 122 mg/dL; Potassium 4.2 mmol/L (3.3-5.1); Triglycerides 90 mg/dL; Very Low Density Lipoprotein 18 mg/dL (5-40); cholesterol:hdl ratio screen 3.16
== END | disposition home or self-care (01) ==
PROVIDERS: PCP Nurse Practitioner; Referring Provider Nurse Practitioner; Visit Provider Nurse Practitioner
DX: Z00.00 Encounter for general adult medical examination without abnormal findings (principal)
CPT/HCPCS: 80053; 80061; 85025